=== PATIENT | male | born 1930 | race Caucasian/White ===

== ENCOUNTER 2016-04-22 14:32 | Observation (INO) | payer BC, OTHER ==
[2016-04-22 14:49] VITALS: BMI 33.0
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
[2016-04-22 15:28] LABS: BASOPHIL 0.7 % (0-2.0); EOSINOPHIL 4.8 % (0-4.5); MCH 32.2 pg (25.7-33.7); MCHC 34.2 g/dl (32.0-35.9); MEAN CELL VOLUME 94.2 fl (80-96); MEAN PLT VOLUME 7.7 fl (7.5-11.1); NEUTROPHILS 57.7 % (42.8-82.8); PLATELET COUNT 132 K/MM3 (134-434); RDW 13.1 % (11.9-15.9); WHITE BLOOD COUNT 4.6 K/mm3 (4.0-10.0)
[2016-04-22 15:57] LABS: ALBUMIN 3.9 g/dl (3.4-5.0); ANION GAP 9 (8-16); BILIRUBIN,TOTAL 0.5 mg/dL (0.2-1.0); CALCIUM 8.8 mg/dL (8.5-10.1); CO2 28 mmol/L (21-32); CREATININE 1.5 mg/dL (0.7-1.3); GLUCOSE,RANDOM 212 mg/dL (74-106); MAGNESIUM 1.9 mg/dL (1.8-2.4); SGOT/AST 11 U/L (15-37); SGPT/ALT 22 U/L (12-78); TOT PROT 6.6 g/dl (6.4-8.2)
[2016-04-22 16:00] LABS: ALK PHOS 71 U/L (45-117); TROPONIN I < 0.02 ng/ml (0.00-0.05)
[2016-04-22] MEDS ORDERED: SODIUM CHLORIDE 500 ML IV STA (16:12)
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
[2016-04-22] MEDS ORDERED: ACETAMINOPHEN 325 MG TABLET (FP) PO PRN (19:41)
[2016-04-22] MEDS ORDERED: ONDANSETRON 4 MG/2 ML VIAL IVPB PRN (19:41)
[2016-04-22] MEDS ORDERED: oxyCODONE HCL 5 MG TABLET PO PRN (19:41)
[2016-04-22] MEDS ORDERED: ALBUTEROL SO4 0.083% IH SOL 2.5 MG/3 ML VIAL.NEB. NEB PRN (19:41)
[2016-04-22 21:11] LABS: URINE APPEARANCE CLEAR; URINE BILIRUBIN NEGATIVE (NEGATIVE); URINE BLOOD NEGATIVE (NEGATIVE); URINE COLOR LTYELLOW; URINE GLUCOSE (UA) 1+ (NEGATIVE); URINE KETONE NEGATIVE (NEGATIVE); URINE LEUK ESTERASE NEGATIVE (NEGATIVE); URINE NITRITE NEGATIVE (NEGATIVE); URINE PROTEIN NEGATIVE (NEGATIVE); URINE UROBILINOGEN NEGATIVE E.U./dl (0.2-1.0)
[2016-04-22] MEDS ORDERED: diazePAM 5 MG TABLET PO PRN (22:00)
[2016-04-22] MEDS ORDERED: LATANOPROST 0.005% OPHTH SOLN 2.5ML BOTTLE OU SCH (22:00)
[2016-04-22] MEDS ORDERED: ATORVASTATIN CA 10 MG TABLET (FP) PO SCH (22:00)
[2016-04-23] MEDS: INSULIN SLIDING SCALE (NOVOLOG) 1 VIAL SQ SCH ×3 (01:12→11:37)
[2016-04-23] MEDS: DICLOFENAC SODIUM 75 MG TABLET.DR PO SCH ×2 (01:13→09:45)
[2016-04-23] MEDS: RANITIDINE HCL 150 MG TABLET (FP) PO SCH ×2 (01:15→09:45)
[2016-04-23 03:32] LABS: TROPONIN I < 0.02 ng/ml (0.00-0.05)
[2016-04-23 07:42] LABS: BASOPHIL 0.5 % (0-2.0); EOSINOPHIL 6.1 % (0-4.5); MCH 32.3 pg (25.7-33.7); MCHC 34.3 g/dl (32.0-35.9); MEAN CELL VOLUME 94.3 fl (80-96); MEAN PLT VOLUME 7.8 fl (7.5-11.1); NEUTROPHILS 54.6 % (42.8-82.8); PLATELET COUNT 130 K/MM3 (134-434); WHITE BLOOD COUNT 6.2 K/mm3 (4.0-10.0)
[2016-04-23 08:02] LABS: CALCIUM 8.8 mg/dL (8.5-10.1); CREATININE 1.3 mg/dL (0.7-1.3); MAGNESIUM 1.9 mg/dL (1.8-2.4); PHOSPHOROUS 4.1 mg/dL (2.5-4.9)
[2016-04-23 08:09] LABS: TROPONIN I < 0.02 ng/ml (0.00-0.05)
[2016-04-23] MEDS ORDERED: ASCORBIC ACID 500 MG TABLET (FP) PO SCH (10:00)
[2016-04-23] MEDS ORDERED: POLYETHYLENE GLYCOL 3350 255 GM BTL PO SCH (10:00)
[2016-04-23] MEDS ORDERED: LORATADINE 10 MG TABLET PO SCH (10:00)
[2016-04-23] MEDS ORDERED: PATIENT'S OWN MEDICATION (NON-FORMULARY) (Docosahexanoic Acid/Epa [Fish Oil Softgel] 1 EAC PO SCH (10:00)
[2016-04-23] MEDS ORDERED: QUINAPRIL HCL 40 MG TABLET (FP) PO SCH (10:00)
[2016-04-23] MEDS ORDERED: MULTIVITAMINS (DAILY MVI) TABLET (FP) PO SCH (10:00)
[2016-04-23] MEDS ORDERED: FUROSEMIDE 20 MG TABLET (FP) PO SCH (10:00)
[2016-04-23] MEDS ORDERED: CHOLECALCIFEROL (VITAMIN D3) 1,000 UNIT TABLET (FP) PO SCH (10:00)
--- NOTE | 2016-04-23 11:01 | EKG ---
Test Reason : Blood Pressure : / mmHG Vent. Rate : 091 BPM Atrial Rate : 091 BPM P-R Int : 222 ms QRS Dur : 086 ms QT Int : 356 ms P-R-T Axes : 048 019 021 degrees QTc Int : 437 ms SINUS RHYTHM WITH 1ST DEGREE A-V BLOCK OTHERWISE NORMAL ECG WHEN COMPARED WITH ECG OF 06-MAY-2006 15:12, NO SIGNIFICANT CHANGE WAS FOUND Confirmed by RASHEL SANFORD MD ([id number]) on 04/23/2016 11:01:21 AM Referred By: DANIEL Confirmed By:RASHEL SANFORD MD
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
[2016-04-23 15:16] VITALS: TEMP 98.2
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
[2016-04-23 15:39] VITALS: BP 154/82; PULSE 92
== END 2016-04-23 18:30 | disposition home or self-care (01) ==
LOC: SUPCPDRO 14:32 → JER 14:32 → JERBED 19:13
PROVIDERS: ADMIT Internal Medicine; ATTEND Internal Medicine
DX: R07.89 Other chest pain (principal); I10 Essential (primary) hypertension; E11.9 Type 2 diabetes mellitus without complications; K21.9 Gastro-esophageal reflux disease without esophagitis; M25.569 Pain in unspecified knee; I50.9 Heart failure, unspecified; Z96.653 Presence of artificial knee joint, bilateral; Z87.891 Personal history of nicotine dependence; T14.8 Other injury of unspecified body region; V49.88XA Car occupant (driver) (passenger) injured in other specified transport accidents, initial encounter; Y92.89 Other specified places as the place of occurrence of the external cause
CPT/HCPCS: 36415; 70450-TC; 71010-TC; 71260-TC; 72125-TC; 74177-TC; 80048; 80053; 81003; 82550; 83735; 84100; 84484; 85025; 93005; 93010; 99285-25; G0378

== ENCOUNTER 2017-03-25 21:18 | Inpatient (IN) | payer OTHER, BC ==
--- NOTE | 2017-03-25 21:36 | PDOC ---
History of Present Illness - General History Source: Spouse Exam Limitations: No Limitations - History of Present Illness Initial Comments: 03/25/17 21:49 The patient is an 85 year old male with a significant PMH of HTN, hyperlipidemia , and diabetes who presents to the emergency department via EMS with chest pain beginning just prior to presentation. The patient's reports the patient described the chest pain as a pressure-like sensation. The patients reports that the patient was not feeling well yesterday and visited Dr. Gambino who suggested plenty of fluids and follow up. The patients denies any sick contacts. The patient's denies chest pain, shortness of breath, headache, and dizziness. Denies fevers, chills, nausea, vomit, diarrhea, and constipation. Denies dysuria, frequency, urgency, and hematuria. Allergies: NKA Past surgical history: Umbilical hernia repair. Appendectomy. Cholecystectomy. Bilateral knee replacements. Social history: Former smoker. No reported alcohol or drug use. PCP: Dr. Gambino <Maxim Gonzalez - Last Filed: 03/25/17 22:11> - General History Source: Spouse <Ric Mejia - Last Filed: 03/26/17 19:16> - General Stated Complaint: CHEST PAIN Time Seen by Provider: 03/25/17 21:36 Past History <Maxim Gonzalez - Last Filed: 03/25/17 22:11> - Past Medical History Anemia: No Asthma: No Cancer: No Cardiac Disorders: No CVA: No COPD: No CHF: No Dementia: No Diabetes: Yes (NIDDM) GI Disorders: Yes (RECTAL BLEEDING, CONSTIPATION) Disorders: No HTN: Yes Hypercholesterolemia: Yes Liver Disease: No Seizures: No Thyroid Disease: No - Surgical History Abdominal Surgery: Yes (REPAIR OF UMBILICAL HERNIA) Appendectomy: Yes Cardiac Surgery: No Cholecystectomy: Yes Lung Surgery: No Neurologic Surgery: No Orthopedic Surgery: Yes (ABIGAIL. KNEE REPLACEMENTS) - Suicide/Smoking/Psychosocial Hx Smoking History: Former smoker Have you smoked in the past 12 months: No If you are a former smoker, when did you quit?: 40 YRS AGO Hx Alcohol Use: No Drug/Substance Use Hx: No Substance Use Type: None <Ric Mejia - Last Filed: 03/26/17 19:16> - Past Medical History Allergies/Adverse Reactions: Allergies Allergy/AdvReac Type Severity Reaction Status Date / Time No Known Allergies Allergy Verified 03/25/17 21:40 Home Medications: Ambulatory Orders Atorvastatin Ca [Lipitor] 10 mg PO HS 10/22/13 Cetirizine HCl [Zyrtec -] 10 mg PO DAILY 10/22/13 Cholecalciferol (Vitamin D3) [Vitamin D3 -] 1,000 unit PO DAILY 10/22/13 Diazepam [Valium -] 10 mg PO TID 10/22/13 Metformin HCl [Metformin HCl ER] 1,000 mg PO BID 10/22/13 Multivitamins [Multivit ([facility] Formulary)] 1 tab PO DAILY 10/22/13 Quinapril HCl [Accupril -] 40 mg PO DAILY 10/22/13 Ranitidine HCl 150 mg PO BID 10/22/13 Oxycodone HCl/Acetaminophen [Percocet 5-325 mg Tablet] 1 tab PO BID PRN #20 tablet MDD 10mg 04/23/16 Aspirin 81 mg PO DAILY 03/26/17 Diclofenac Sodium 75 mg PO BID 03/26/17 Review of Systems - Review of Systems Able to Perform ROS?: Yes Comments:: 03/25/17 21:50 CONSTITUTIONAL: Absent: fever, chills, diaphoresis, generalized weakness, malaise, loss of appetite HEENT: Absent: rhinorrhea, nasal congestion, throat pain, throat swelling, difficulty swallowing, mouth swelling, ear pain, eye pain, visual Changes CARDIOVASCULAR: (+) Chest pain. Absent: syncope, palpitations, irregular heart rate, lightheadedness, peripheral edema RESPIRATORY: Absent: cough, shortness of breath, dyspnea with exertion, orthopnea, wheezing, stridor, hemoptysis GASTROINTESTINAL: Absent: abdominal pain, abdominal distension, nausea, vomiting, diarrhea, constipation, melena, hematochezia GENITOURINARY: Absent: dysuria, frequency, urgency, hesitancy, hematuria, flank pain, genital pain MUSCULOSKELETAL: Absent: myalgia, arthralgia, joint swelling SKIN: Absent: rash, itching, pallor HEMATOLOGIC/IMMUNOLOGIC: Absent: easy bleeding, easy bruising, lymphadenopathy, frequent infections ENDOCRINE: Absent: unexplained weight gain, unexplained weight loss, heat intolerance, cold intolerance NEUROLOGIC: Absent: headache, focal weakness or paresthesias, dizziness, unsteady gait, seizure, mental status changes, bladder or bowel incontinence PSYCHIATRIC: Absent: anxiety, depression, suicidal or homicidal ideation, hallucinations. <Maxim Gonzalez - Last Filed: 03/25/17 22:11> *Physical Exam - Physical Exam Comments: 03/25/17 21:50 GENERAL: Well developed, well nourished. Awake and alert. HEENT: Normocephalic, atraumatic. PERRLA, EOMI. No conjunctival pallor. Sclera are non- icteric. Moist mucous membranes. Oropharynx is clear. NECK: Supple. Full ROM. No JVD. Carotid pulses 2+ and symmetric, without bruits. No thyromegaly. No lymphadenopathy. CARDIOVASCULAR: Regular rate and rhythm. No murmurs, rubs, or gallops. Distal pulses are 2+ and symmetric. PULMONARY: (+) Moderate respiratory distress. (+) Conversational dyspnea. (+) Decreased breath sounds bilaterally upper and lower lung melo. Lungs clear to auscultation bilaterally. No wheezing, rales or rhonchi. ABDOMINAL: Soft. Non-tender. Non-distended. No rebound or guarding. No organomegaly. Normoactive bowel sounds. MUSCULOSKELETAL Normal range of motion at all joints. No bony deformities or tenderness. No CVA tenderness. EXTREMITIES: No cyanosis. No clubbing. No edema. No calf tenderness. SKIN: Warm and dry. Normal capillary refill. No rashes. No jaundice. NEUROLOGICAL: Alert, awake, appropriate. Cranial nerves 2-12 intact. No deficits to light touch and temperature in face, upper extremities and lower extremities. No motor deficits in the in face, upper extremities and lower extremities. Normoreflexic in the upper and lower extremities. Normal speech. Toes are downgoing bilaterally. PSYCHIATRIC: Cooperative. Good eye contact. Appropriate mood and affect. <Maxim Gonzalez - Last Filed: 03/25/17 22:11> Heart Score/ECG Review #1 03/25/17 22:11 Vent rate 112 bpm Sinus tachycardia Possible left atrial enlargement Abnormal ECG <Maxim Gonzalez - Last Filed: 03/25/17 22:11> ED Treatment Course - LABORATORY CBC & Chemistry Diagram: 03/26/17 06:20 03/26/17 06:20 <Ric Mejia - Last Filed: 03/26/17 19:16> Medical Decision Making - Medical Decision Making 03/26/17 19:14 Dr. Mejia: The scribe's documentation has been prepared under my direction and personally reviewed by me in its entirery. I confirm that the note above accurately reflects all work, treatment, procedures, and medical decision making performed by me. Patient was admitted for congestive heart failure. patient improvement with diuresis of fluid. Patient's vital signs improved. admitted to telemetry <Ric Mejia - Last Filed: 03/26/17 19:16> *DC/Admit/Observation/Transfer - Attestations Scribe Attestion: 03/25/17 21:50 Documentation prepared by Maxim Gonzalez, acting as medical front desk specialist for Ric Mejia DO. <Maxim Gonzalez - Last Filed: 03/25/17 22:11> - Discharge Dispostion Admit: Yes <Ric Mejia - Last Filed: 03/26/17 19:16> Diagnosis at time of Disposition: CHF (congestive heart failure) - Discharge Dispostion Condition at time of disposition: Stable
[2017-03-25 22:20] LABS: BASO % 0.1 % (0-2.0); EOS % 0.1 % (0-4.5); HEMATOCRIT 38.4 % (35.4-49); HEMOGLOBIN 12.6 GM/dL (11.7-16.9); MCHC 32.8 g/dl (32.0-35.9); MEAN CELL VOLUME 97.6 fl (80-96); MEAN PLT VOLUME 8.5 fl (7.5-11.1); MONO % 4.7 % (3.8-10.2); NEUT % 90.1 % (42.8-82.8); PLATELET COUNT 173 K/MM3 (134-434); RBC 3.94 M/mm3 (4.00-5.60); RDW 13.3 % (11.9-15.9); WHITE BLOOD COUNT 12.5 K/mm3 (4.0-10.0)
[2017-03-25 22:21] VITALS: BMI 30.1
[2017-03-25 22:50] LABS: INR 1.48 (0.82-1.09); PROTHROMBIN TIME (PATIENT) 16.7 SEC (9.98-11.88)
[2017-03-25] MEDS ORDERED: FUROSEMIDE 40 MG/4 ML INJECTABLE VIAL IVPUSH ONE (23:03)
[2017-03-25] MEDS ORDERED: FUROSEMIDE 40 MG/4 ML INJECTABLE VIAL ONE (23:13)
[2017-03-25 23:24] LABS: ALBUMIN 4.1 g/dl (3.4-5.0); BILIRUBIN,TOTAL 0.6 mg/dL (0.2-1.0); BLOOD UREA NITROGEN 41 mg/dL (7-18); CHLORIDE 100 mmol/L (98-107); CO2 24 mmol/L (21-32); CREATININE 1.8 mg/dL (0.7-1.3); GLUCOSE,RANDOM 206 mg/dL (74-106); SGPT/ALT 27 U/L (12-78); TOT PROT 6.9 g/dl (6.4-8.2)
[2017-03-25 23:38] LABS: ANION GAP 7 (8-16); SODIUM 131 mmol/L (136-145)
[2017-03-25 23:40] LABS: ALK PHOS 83 U/L (45-117)
[2017-03-25 23:44] LABS: MAGNESIUM 1.7 mg/dL (1.8-2.4); SGOT/AST 17 U/L (15-37)
[2017-03-25 23:45] LABS: POTASSIUM 6.6 mmol/L (3.5-5.1)
--- NOTE | 2017-03-25 23:59 | HP ---
Admitting History and Physical - Primary Care Physician PCP: Wisam Brar - Admission Chief Complaint: SOB, Generalized Malaise History of Present Illness: This is a 86 y/o man with a past medical history of HTN, DM, Herniated Disc, Spinal Stenosis, Diverticulitis, HAMILTON. Who presents to the ED with SOB, generalized malaise, per spouse "not feeling well" The patient's reports that over the last several days the patient has been weak, lethargic, with a poor appetite. She reports calling his PCP and describing the symptoms, and was recommended to treat the patient for dehydration- increased fluids- Gatorade, juices etc. The noted the patient was getting weaker and called EMS to transport for evaluation. The spouse denies patient having fever, CP, palpitations, AP, N/V/D, constipation, dysuria. Per spouse patient is UTD with Influenza, Pneumoccocal vaccines History Source: Family Member, Medical Record Limitations to Obtaining History: Clinical Condition - Past Medical History Cardiovascular: Yes: CHF, HTN, Hyperlipdemia Gastrointestinal: Yes: GERD Musculoskeletal: Yes: Other (Herniated Disc, Spinal Stenosis) Endocrine: Yes: Diabetes Mellitus - Past Surgical History Past Surgical History: Yes: Joint Replacement (bilateral knee) - Smoking History Smoking history: Unknown if ever smoked Have you smoked in the past 12 months: No If you are a former smoker, when did you quit?: 40 YRS AGO - Alcohol/Substance Use Hx Alcohol Use: No History of Substance Use: reports: None - Social History Usual Living Arrangement: Yes: With Spouse ADL: Independent History of Recent Travel: No Home Medications - Allergies Allergies/Adverse Reactions: Allergies Allergy/AdvReac Type Severity Reaction Status Date / Time No Known Allergies Allergy Verified 03/25/17 21:40 - Home Medications Home Medications: Ambulatory Orders Atorvastatin Ca [Lipitor] 10 mg PO HS 10/22/13 Cetirizine HCl [Zyrtec -] 10 mg PO DAILY 10/22/13 Cholecalciferol (Vitamin D3) [Vitamin D3 -] 1,000 unit PO DAILY 10/22/13 Diazepam [Valium -] 10 mg PO TID 10/22/13 Metformin HCl [Metformin HCl ER] 1,000 mg PO BID 10/22/13 Multivitamins [Multivit ([facility] Formulary)] 1 tab PO DAILY 09/05/14 Quinapril HCl [Accupril -] 40 mg PO DAILY 10/22/13 Ranitidine HCl 150 mg PO BID 10/22/13 Oxycodone HCl/Acetaminophen [Percocet 5-325 mg Tablet] 1 tab PO BID PRN #20 tablet MDD 10mg 04/23/16 Aspirin 81 mg PO DAILY 03/26/17 Diclofenac Sodium 75 mg PO BID 03/26/17 Family Disease History - Family Disease History Family Disease History: Other: Sister (dementia) Review of Systems Unable to obtain ROS, reason: Lethargy Physical Examination Vital Signs: Vital Signs Temperature Pulse Rate 112 H 03/25/17 22:18 Respiratory Rate 14 03/25/17 22:18 Blood Pressure 170/100 03/25/17 22:18 O2 Sat by Pulse Oximetry (%) 90 L 03/25/17 22:18 Constitutional: Yes: Obese, Other (Lethargic, arousable to verbal prompting) Eyes: Yes: Other (Conjunctiva injected, yellow crusting to lashes, inner canthus ) HENT: Yes: Normocephalic Neck: Yes: WNL, Supple, Trachea Midline Cardiovascular: Yes: Regular Rate and Rhythm, Murmur, S1, S2 Respiratory: Yes: On BiPap, Rhonchi, Wheezes Gastrointestinal: Yes: Soft, Abdomen, Obese Renal/: Yes: Adams Present (dark yellow urine noted in tubing, drainage bag) Breast(s): Yes: WNL Musculoskeletal: Yes: WNL Extremities: Yes: WNL Edema: Yes Edema: LLE: 3+, RLE: 4+ Peripheral Pulses WNL: Yes Neurological: Yes: Lethargy Psychiatric: Yes: Other (alert- to name, then lethargic) Labs: CBC, BMP 03/25/17 22:14 03/25/17 22:14 Laboratory Results - last 24 hr 03/25/17 03/25/17 03/25/17 22:14 22:14 22:14 WBC 12.5 H D RBC 3.94 L Hgb 12.6 Hct 38.4 MCV 97.6 H MCH 32.0 MCHC 32.8 RDW 13.3 Plt Count 173 D MPV 8.5 Neutrophils % 90.1 H D Lymphocytes % 5.0 L D Monocytes % 4.7 Eosinophils % 0.1 D Basophils % 0.1 PT with INR 16.70 H INR 1.48 H Anticoagulation Therapy Puncture Site ABG pH ABG pCO2 at Pt Temp ABG pO2 at Pt Temp ABG HCO3 ABG O2 Sat (Measured) ABG O2 Content ABG Base Excess Fritz Test O2 Delivery Device Oxygen Flow Rate Vent Mode Vent Rate Mechanical Rate Pressure Support Vent Sodium 131 L Potassium 6.6 H* D Chloride 100 Carbon Dioxide 24 Anion Gap 7 L BUN 41 H D Creatinine 1.8 H D Creat Clearance w eGFR 35.95 Random Glucose 206 H D Hemoglobin A1c % Lactic Acid Calcium 8.0 L Phosphorus Magnesium 1.7 L Total Bilirubin 0.6 AST 17 D ALT 27 D Alkaline Phosphatase 83 Creatine Kinase 50 Troponin I 0.08 H D B-Natriuretic Peptide 58643.20 H Total Protein 6.9 Albumin 4.1 Triglycerides Cholesterol Total LDL Cholesterol HDL Cholesterol Urine Color Urine Appearance Urine pH Ur Specific Dailey Urine Protein Urine Glucose (UA) Urine Ketones Urine Blood Urine Nitrite Urine Bilirubin Urine Urobilinogen Ur Leukocyte Esterase Urine WBC (Auto) Urine RBC (Auto) Urine Bacteria Hyaline Casts Urine Mucus 03/26/17 03/26/17 03/26/17 00:10 00:10 00:40 WBC RBC Hgb Hct MCV MCH MCHC RDW Plt Count MPV Neutrophils % Lymphocytes % Monocytes % Eosinophils % Basophils % PT with INR INR Anticoagulation Therapy No Result Required. Puncture Site Left radial ABG pH 7.29 L ABG pCO2 at Pt Temp 50.2 H ABG pO2 at Pt Temp 198.0 H* ABG HCO3 23.5 ABG O2 Sat (Measured) 99.3 H ABG O2 Content 17.3 ABG Base Excess -2.9 L Fritz Test Positive O2 Delivery Device Bipap Oxygen Flow Rate 100 Vent Mode S/t Vent Rate 16 Mechanical Rate No Result Required. Pressure Support Vent 14/7 Sodium Potassium 6.2 H* Chloride Carbon Dioxide Anion Gap BUN Creatinine Creat Clearance w eGFR Random Glucose Hemoglobin A1c % Lactic Acid Calcium Phosphorus Magnesium Total Bilirubin AST ALT Alkaline Phosphatase Creatine Kinase Troponin I B-Natriuretic Peptide Total Protein Albumin Triglycerides Cholesterol Total LDL Cholesterol HDL Cholesterol Urine Color Yellow Urine Appearance Clear Urine pH 5.0 Ur Specific Dailey 1.017 Urine Protein 1+ H Urine Glucose (UA) Negative Urine Ketones Negative Urine Blood Negative Urine Nitrite Negative Urine Bilirubin Negative Urine Urobilinogen Negative Ur Leukocyte Esterase Negative Urine WBC (Auto) <1 Urine RBC (Auto) <1 Urine Bacteria Rare Hyaline Casts 2 Urine Mucus Rare 03/26/17 01:02 WBC RBC Hgb Hct MCV MCH MCHC RDW Plt Count MPV Neutrophils % Lymphocytes % Monocytes % Eosinophils % Basophils % PT with INR INR Anticoagulation Therapy Puncture Site ABG pH ABG pCO2 at Pt Temp ABG pO2 at Pt Temp ABG HCO3 ABG O2 Sat (Measured) ABG O2 Content ABG Base Excess Fritz Test O2 Delivery Device Oxygen Flow Rate Vent Mode Vent Rate Mechanical Rate Pressure Support Vent Sodium Potassium Chloride Carbon Dioxide Anion Gap BUN Creatinine Creat Clearance w eGFR Random Glucose Hemoglobin A1c % Lactic Acid 1.3 Calcium Phosphorus Magnesium Total Bilirubin AST ALT Alkaline Phosphatase Creatine Kinase Troponin I B-Natriuretic Peptide Total Protein Albumin Triglycerides Cholesterol Total LDL Cholesterol HDL Cholesterol Urine Color Urine Appearance Urine pH Ur Specific Dailey Urine Protein Urine Glucose (UA) Urine Ketones Urine Blood Urine Nitrite Urine Bilirubin Urine Urobilinogen Ur Leukocyte Esterase Urine WBC (Auto) Urine RBC (Auto) Urine Bacteria Hyaline Casts Urine Mucus Imaging - Results Chest X-ray: Image Reviewed (Pulm vascular congestion) EKG: Image Reviewed (Sinus Tachycardia 112 bpm, possible left atrial enlargement Non specific T wave abnormality QT/QTc 318/434) Problem List - Problems (1) Acute exacerbation of congestive heart failure Code(s): I50.9 - HEART FAILURE, UNSPECIFIED (2) Neuropathy Code(s): G62.9 - POLYNEUROPATHY, UNSPECIFIED (3) Osteoarthritis Code(s): M19.90 - UNSPECIFIED OSTEOARTHRITIS, UNSPECIFIED SITE (4) Diabetes Code(s): E11.9 - TYPE 2 DIABETES MELLITUS WITHOUT COMPLICATIONS (5) GERD (gastroesophageal reflux disease) Code(s): K21.9 - GASTRO-ESOPHAGEAL REFLUX DISEASE WITHOUT ESOPHAGITIS (6) HLD (hyperlipidemia) Code(s): E78.5 - HYPERLIPIDEMIA, UNSPECIFIED (7) HTN (hypertension) Code(s): I10 - ESSENTIAL (PRIMARY) HYPERTENSION (8) Knee pain, chronic Code(s): M25.569 - PAIN IN UNSPECIFIED KNEE; G89.29 - OTHER CHRONIC PAIN (9) DVT prophylaxis Code(s): [id number] - Assessment/Plan This is a 86 y/o man with a PMHx of: CHF, HTN, HLD, DM, Venous Stasis Ulcers, Spinal Stenosis, Herniated Discs, HAMILTON. Admitted to Telemetry Acute Exacerbation of COPD, CHF, Electrolyte Imbalance. Plan: 1. Acute CHF Exacerbation- Tele monitoring, BNP 30074, CXR- pulm vascular congestion, Continue Bipap, ABG-pending, Will titrate accordingly, Appreciate Cardiology consult, Echo, Lasix IV, Strict INOs, Daily weights. 2. Acute COPD Exacerbation- Continue steroids, ABX, Duonebs, Appreciate Pulm consult, O2- Bipap, Monitor vitals, CBCD, BMP 3. Electrolyte Imbalance- Tele monitoring, EKG reviewed- no Peaked Ts, Hyperkalemic protocol, Monitor BMP 4. Diabetes Mellitus- BGMs, ISS when diet resumed 5. Continue home meds when able to tolerate, consider CCBs IV for rate control 6. FEN- Fluid restrictions, Replete Mg, Monitor K, NPO 7. DVT/PPI Prophylaxis- Heparin SQ, PPI Code Status: Full Code Dispo: Requires Inpatient Care Visit type - Emergency Visit Emergency Visit: Yes ED Registration Date: 03/25/17 Care time: The patient presented to the Emergency Department on the above date and was hospitalized for further evaluation of their emergent condition. - New Patient This patient is new to me today: Yes Date on this admission: 03/25/17 - Critical Care Critical Care patient: No
[2017-03-26 00:26] LABS: URINE APPEARANCE CLEAR; URINE BILIRUBIN NEGATIVE (NEGATIVE); URINE BLOOD NEGATIVE (NEGATIVE); URINE COLOR YELLOW; URINE GLUCOSE (UA) NEGATIVE (NEGATIVE); URINE KETONE NEGATIVE (NEGATIVE); URINE LEUK ESTERASE NEGATIVE (NEGATIVE); URINE NITRITE NEGATIVE (NEGATIVE); URINE UROBILINOGEN NEGATIVE mg/dL (0.2-1.0)
[2017-03-26 00:37] LABS: URINE PROTEIN 1+ (NEGATIVE)
[2017-03-26 00:39] LABS: URINE BACTERIA RARE /hpf (NONE SEEN); URINE HYALINE CAST 2 /lpf; URINE MUCUS RARE
[2017-03-26 01:01] LABS: ARTERIAL BLD GAS O2 SATURATION 99.3 % (90-98.9); ARTERIAL BLOOD GAS BASE EXCESS -2.9 meq/l (-2-2); ARTERIAL BLOOD GAS PCO2 50.2 mmHg (35-45); ARTERIAL BLOOD GAS pH 7.29 (7.35-7.45)
[2017-03-26 01:05] LABS: ALLENS TEST POSITIVE
[2017-03-26] MEDS: FUROSEMIDE 40 MG/4 ML INJECTABLE VIAL IVPUSH SCH ×2 (06:08→14:46)
[2017-03-26 07:24] LABS: BASO % 0.1 % (0-2.0); HEMATOCRIT 37.5 % (35.4-49); HEMOGLOBIN 12.3 GM/dL (11.7-16.9); LYMPH % 6.4 % (8-40); MCH 31.3 pg (25.7-33.7); MCHC 32.7 g/dl (32.0-35.9); MEAN CELL VOLUME 95.9 fl (80-96); MEAN PLT VOLUME 8.6 fl (7.5-11.1); MONO % 5.3 % (3.8-10.2); NEUT % 88.2 % (42.8-82.8); PLATELET COUNT 151 K/MM3 (134-434); RBC 3.92 M/mm3 (4.00-5.60); RDW 13.1 % (11.9-15.9); WHITE BLOOD COUNT 13.2 K/mm3 (4.0-10.0)
[2017-03-26 08:00] LABS: ANION GAP 9 (8-16); BLOOD UREA NITROGEN 42 mg/dL (7-18); CALCIUM 8.3 mg/dL (8.5-10.1); CHLORIDE 98 mmol/L (98-107); CHOLESTEROL 110 mg/dL (50-200); CO2 27 mmol/L (21-32); CREATININE 1.8 mg/dL (0.7-1.3); GLUCOSE,RANDOM 187 mg/dL (74-106); HDL CHOLESTEROL 38 mg/dL (40-60); LDL CHOLESTEROL (ONLY SJRH) 66 mg/dL (5-100); MAGNESIUM 1.8 mg/dL (1.8-2.4); PHOSPHOROUS 4.7 mg/dL (2.5-4.9); POTASSIUM 5.2 mmol/L (3.5-5.1); SODIUM 134 mmol/L (136-145); TRIGLYCERIDES 68 mg/dL (35-160)
[2017-03-26] MEDS ORDERED: PIPERACIL/TAZOB 3.375 GM 3.375 GM/50 ML PREMIX IVPB ONE ×2 (09:27→11:15)
--- NOTE | 2017-03-26 10:42 | PN ---
Progress Note, Physician Chief Complaint: pt in bed, lethargic, appears in no acute distress. - Current Medication List Current Medications: Active Medications Acetaminophen (Ofirmev Injection -) 650 mg IVPB Q6H JADIEL Furosemide (Lasix Injection -) 40 mg IVPUSH BID@0600,1400 JADIEL Last Admin: 03/26/17 06:08 Dose: 40 mg Piperacillin/Tazobactam/Dextrose (Zosyn 3.375gm Ivpb (Premix)) 3.375 gm IVPB ONCE ONE Stop: 03/26/17 09:28 - Objective Vital Signs: Vital Signs Temperature 100.7 F H 03/26/17 07:27 Pulse Rate 107 H 03/26/17 09:00 Respiratory Rate 22 03/26/17 09:00 Blood Pressure 132/84 03/26/17 09:00 O2 Sat by Pulse Oximetry (%) 100 03/26/17 09:00 Constitutional: Yes: No Distress, Calm Cardiovascular: Yes: Regular Rate and Rhythm, Murmur Respiratory: Yes: Regular, CTA Bilaterally, Diminished, On BiPap. No: Rhonchi, Tachypnea, Wheezes Gastrointestinal: Yes: WNL, Normal Bowel Sounds, Soft, Abdomen, Obese. No: Distention, Tenderness Edema: Yes Edema: LLE: 3+, RLE: 3+ Neurological: Yes: Confusion, Lethargy Labs: CBC, BMP 03/26/17 06:20 03/26/17 06:20 INR, PTT INR 1.48 (0.82-1.09) H 03/25/17 22:14 - ....Imaging Chest X-ray: Report Reviewed Ultrasound: Pending EKG: Report Reviewed Problem List - Problems (1) Sepsis Assessment/Plan: pt febrile, leukocytosis, tachycardic with mild resp acidosis UA neg, UC/Blood cultures pending chest xray with worsening congestion/consolidation Zosyn given, ID consulted Tylenol prn hold on ivf for now considering fluid overload Code(s): A41.9 - SEPSIS, UNSPECIFIED ORGANISM (2) CKD (chronic kidney disease) Assessment/Plan: cr 1.8, slightly elevated from baseline possibly prerenal will monitor Code(s): N18.9 - CHRONIC KIDNEY DISEASE, UNSPECIFIED Qualifiers: Chronic kidney disease stage: stage 3 (moderate) Qualified Code(s): N18.3 - Chronic kidney disease, stage 3 (moderate) (3) Respiratory acidosis Assessment/Plan: improving on bipap pulm consulted will monitor Code(s): E87.2 - ACIDOSIS (4) Osteoarthritis Assessment/Plan: stable will monitor for now Code(s): M19.90 - UNSPECIFIED OSTEOARTHRITIS, UNSPECIFIED SITE Qualifiers: Osteoarthritis location: multiple joints Osteoarthritis type: primary Qualified Code(s): M15.0 - Primary generalized (osteo)arthritis (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 Assessment/Plan: abnormal chest xray with consolidation cardiology consulted echo without further deterioration pt diuresed in ed Code(s): I08.0 - RHEUMATIC DISORDERS OF BOTH MITRAL AND AORTIC VALVES (6) Chest pain Assessment/Plan: resolved trending troponins cardiology consulting ekg done Code(s): R07.9 - CHEST PAIN, UNSPECIFIED Qualifiers: Chest pain type: other chest pain Qualified Code(s): R07.89 - Other chest pain (7) Diabetes Assessment/Plan: stable hold metformin in the setting of worsening renal function BGM Insulin sliding scale Code(s): E11.9 - TYPE 2 DIABETES MELLITUS WITHOUT COMPLICATIONS Qualifiers: Diabetes mellitus type: type 2 Diabetes mellitus jail insulin use: without jail use Chronic kidney disease stage: stage 3 (moderate) (8) GERD (gastroesophageal reflux disease) Assessment/Plan: stable continue ranitidine Code(s): K21.9 - GASTRO-ESOPHAGEAL REFLUX DISEASE WITHOUT ESOPHAGITIS (9) HLD (hyperlipidemia) Assessment/Plan: stable continue atorvastatin aspirin 81mg Code(s): E78.5 - HYPERLIPIDEMIA, UNSPECIFIED (10) HTN (hypertension) Assessment/Plan: stable holding quinapril allow permissive htn in the setting of sepsis Code(s): I10 - ESSENTIAL (PRIMARY) HYPERTENSION Qualifiers: Hypertension type: essential hypertension Qualified Code(s): I10 - Essential (primary) hypertension (11) Vitamin D deficiency Assessment/Plan: stable continue vitamin d Code(s): E55.9 - VITAMIN D DEFICIENCY, UNSPECIFIED (12) Neuropathy Assessment/Plan: stable will monitor Code(s): G62.9 - POLYNEUROPATHY, UNSPECIFIED (13) Lower extremity edema Assessment/Plan: pt with chronic lower ext edema, slightly worse pt diuresed in ED lasix 40mg bid Code(s): R60.0 - LOCALIZED EDEMA
[2017-03-26] MEDS ORDERED: ACETAMINOPHEN 1000 MG/100 ML VIAL (NON FORMULARY) IVPB SCH (10:45)
[2017-03-26] MEDS ORDERED: PIPERACILLIN/TAZOB 3.375 GM 3.375 GM/50 ML BAG IVPB ONE (10:55)
[2017-03-26] MEDS ORDERED: ACETAMINOPHEN 1000 MG/100 ML VIAL (NON FORMULARY) IVPB PRN (10:56)
[2017-03-26 11:12] LABS: ALLENS TEST POSITIVE; ARTERIAL BLOOD GAS PCO2 47.7 mmHg (35-45); ARTERIAL BLOOD GAS PO2 22.3 mmHg (68-100); ARTERIAL BLOOD GAS pH 7.36 (7.35-7.45)
[2017-03-26 11:13] LABS: ARTERIAL BLD GAS O2 SATURATION 99.6 % (90-98.9)
--- NOTE | 2017-03-26 11:28 | EKG ---
Test Reason : Blood Pressure : / mmHG Vent. Rate : 112 BPM Atrial Rate : 112 BPM P-R Int : 172 ms QRS Dur : 086 ms QT Int : 318 ms P-R-T Axes : 030 022 -03 degrees QTc Int : 434 ms SINUS TACHYCARDIA POSSIBLE LEFT ATRIAL ENLARGEMENT NONSPECIFIC T WAVE ABNORMALITY ABNORMAL ECG WHEN COMPARED WITH ECG OF 22-APR-2016 14:59, [place] INTERVAL HAS DECREASED T WAVE INVERSION NOW EVIDENT IN ANTERIOR LEADS Confirmed by BRITTANY HUNG, JESSY ([id number]) on 03/26/2017 11:28:00 AM Referred By: Confirmed By:JESSY SOTO MD
--- NOTE | 2017-03-26 13:43 | CON.CARD ---
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 Now +++ orthopnea, pnd and dyspnea at rest - -> limiting his ability to ambulate. chronic LE edema, also progressively worsening. denies chest pain, palps dizziness, claudication, bleeding or transient neurologic symtptoms. . No LOC or syncope. denies f/c/s, abdominal pain, n/v/d, congestion, h/a, visual disturbances. In ER found to be hyperkalemic and in resp distress requiring bipap. hyperkalemia improving s/p 60 mg IV lasix x 1 yesterday and 40 mg lasix IV x 2 today. Pmhx/pshx: per phi, prior joint replacement. Fam hx; brother with heart surgery ?valve vs valve +CABG social hx: former tob ros: per hpi Ambulatory Orders Ascorbate Calcium [Vitamin C] 500 mg PO DAILY 10/22/13 Atorvastatin Ca [Lipitor] 10 mg PO HS 10/22/13 Cetirizine HCl [Zyrtec -] 10 mg PO DAILY 10/22/13 Cholecalciferol (Vitamin D3) [Vitamin D3 -] 1,000 unit PO DAILY 10/22/13 Diazepam [Valium -] 10 mg PO TID 10/22/13 Metformin HCl [Metformin HCl ER] 1,000 mg PO BID 10/22/13 Multivitamins [Multivit ([facility] Formulary)] 1 tab PO DAILY 10/22/13 Quinapril HCl [Accupril -] 40 mg PO DAILY 10/22/13 Ranitidine HCl 150 mg PO BID 10/22/13 Oxycodone HCl/Acetaminophen [Percocet 5-325 mg Tablet] 1 tab PO BID PRN #20 tablet MDD 10mg 04/23/16 Aspirin 81 mg PO DAILY 03/26/17 Current Medications Acetaminophen (Ofirmev Injection -) 650 mg IVPB Q6H PRN PRN Reason: FEVER Last Admin: 03/26/17 11:50 Dose: 650 mg Furosemide (Lasix Injection -) 40 mg IVPUSH BID@0600,1400 JADIEL Last Admin: 03/26/17 06:08 Dose: 40 mg Oseltamivir Phosphate (Tamiflu -) 30 mg PO BID JADIEL Stop: 03/30/17 22:01 Vital Signs - 24 hr 03/25/17 03/25/17 03/26/17 22:00 22:18 00:18 Temperature Pulse Rate 112 H Pulse Rate [ Radial] Respiratory 14 Rate Blood Pressure 170/100 Blood Pressure [Left Arm] O2 Sat by Pulse 100 90 L 100 Oximetry (%) 03/26/17 03/26/17 03/26/17 00:32 01:17 01:18 Temperature 100.9 F H 100.9 F H Pulse Rate 111 H Pulse Rate [ 111 H Radial] Respiratory 24 24 Rate Blood Pressure 143/97 Blood Pressure 143/97 [Left Arm] O2 Sat by Pulse 99 100 100 Oximetry (%) 03/26/17 03/26/17 03/26/17 02:34 04:11 06:09 Temperature Pulse Rate Pulse Rate [ 108 H 111 H Radial] Respiratory 24 24 Rate Blood Pressure Blood Pressure 126/86 146/89 137/102 [Left Arm] O2 Sat by Pulse 100 100 100 Oximetry (%) 03/26/17 03/26/17 03/26/17 07:00 07:03 07:27 Temperature 100.7 F H Pulse Rate Pulse Rate [ 105 H Radial] Respiratory 16 Rate Blood Pressure Blood Pressure 122/65 [Left Arm] O2 Sat by Pulse 100 100 Oximetry (%) 03/26/17 03/26/17 09:00 12:20 Temperature Pulse Rate 103 H Pulse Rate [ 107 H Radial] Respiratory 22 20 Rate Blood Pressure 132/82 Blood Pressure 132/84 [Left Arm] O2 Sat by Pulse 100 Oximetry (%) Intake & Output 03/24/17 03/25/17 03/26/17 03/27/17 07:59 07:59 07:59 07:59 Output Total 1200 Balance -1200 Weight 210 lb 209 lb 15.845 oz Dyspneic, conversation limited due to dyspnea, only able to say a few words at a time, calm JVD elevated, neck supple bibasilar dullness/rales, nl effort tachycardic, regular nl s1, s2 2/6 murmur at sternal border and at apex. + bs soft nt nd, obese. no hsm ext with 1-2+ edema dp/pt difficult to palpate 2/2 edema. aaox3 no carotid bruits no jaundice, diaphoresis CBC, BMP 03/26/17 06:20 03/26/17 06:20 Laboratory Tests 03/25/17 03/26/17 03/26/17 22:14 00:40 06:20 ABG pH 7.29 L ABG pCO2 at Pt Temp 50.2 H ABG pO2 at Pt Temp 198.0 H* ABG HCO3 23.5 Sodium 131 L Potassium 6.6 H* D 5.2 H Creatinine 1.8 H D Hemoglobin A1c % Magnesium 1.8 Creatine Kinase 50 Troponin I 0.08 H D B-Natriuretic Peptide 12901.20 H Total LDL Cholesterol 66 03/26/17 03/26/17 03/26/17 06:20 06:20 11:05 ABG pH 7.36 ABG pCO2 at Pt Temp 47.7 H ABG pO2 at Pt Temp 22.3 L* D ABG HCO3 26.4 H Sodium Potassium Creatinine Hemoglobin A1c % 6.3 H Magnesium Creatine Kinase Troponin I 0.05 D B-Natriuretic Peptide Total LDL Cholesterol 03/26/17 13:01 ABG pH ABG pCO2 at Pt Temp ABG pO2 at Pt Temp ABG HCO3 Sodium Potassium Creatinine Hemoglobin A1c % Magnesium Creatine Kinase Troponin I 0.04 B-Natriuretic Peptide Total LDL Cholesterol EKG: sinus tach 112 bpm. non-specific t wave ab 03/2017: n l lv size/fn. tds for rwma. rv not well seen. mod mac. mod-sev mr. chest ct: interstitial edema. bilateral, mod-large pleural effusions with compressive atelectasis. calc cors. calc av and mv. mildly dilated PA. 2014 stress: non-ischemic ekg, no sx's. small, mild basal inferolateral ischemia. nl ef. 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 recommend ongoing bipap support. Responding to current lasix regimen (40 IV bid), con't. - daily weights, bmp, i/o's. acute diastolic chf exacerbation - may be triggered by progressive valvular disease either functional MS from MAC or MR progression (no mention of flail leaflet on echo). - ongoing diuresis - aggressive HR control to optimize hemodynamics. will initiate diltiazem 30 mg q6h. tele monitoring. mgm't of K as mentioned below. Mg repletion prn - trop neg x 3. echo with preserved systolic function. no concern for acs at this time. presumed cad/hx of CEA/hl - calc cors with hx of mild inferior ischemia on stress testing. No signs of acs at this time. con't medical mgm't with asa, statin htn - monitor with ongoing med adjustments hyperkalemia/ckd - hyperkalemia improving with diuresis. con't to monitor with ongoing diuresis. would hold home aceI
[2017-03-26] MEDS: OSELTAMIVIR PHOSPHATE 30 MG CAPSULE PO SCH (14:46)
[2017-03-26] MEDS: HEPARIN NA (PORCINE) 5,000 UNITS/ML 1ML VIAL SQ SCH ×2 (14:46→22:52)
--- NOTE | 2017-03-26 15:41 | CON.ID ---
Consult Consult Specialty:: infectious disease Referred by:: dr beasley Reason for Consultation:: pneumonia, hypoxia - History of Present Illness Chief Complaint: sob, chest pain History of Present Illness: 86 year old man with one to 2 day history of not feeling well, poor appetitie, developed chest pain and came to ED in ED he was febrile and hypoxic requiring bipap cxray with bibiasilar infiltrates/effusions he reports a cough for several days - History Source History Provided By: Patient, Medical Record Limitations to Obtaining History: Clinical Condition - Past Medical History Cardio/Vascular: Yes: CHF, HTN, Hyperlipdemia Gastrointestinal: Yes: GERD Renal/: Yes: Renal Inusuff Heme/Onc: Yes: Anemia Musculoskeletal: Yes: Other (Herniated Disc, Spinal Stenosis) Endocrine: Yes: Diabetes Mellitus - Past Surgical History Past Surgical History: Yes: Carotid Endarterectomy (right), Joint Replacement ( bilateral knee) - Alcohol/Substance Use Hx Alcohol Use: No History of Substance Use: reports: None - Smoking History Smoking history: Unknown if ever smoked Have you smoked in the past 12 months: No If you are a former smoker, when did you quit?: 40 YRS AGO - Social History Usual Living Arrangement: With Spouse ADL: Independent History of Recent Travel: No Home Medications - Allergies Allergies/Adverse Reactions: Allergies Allergy/AdvReac Type Severity Reaction Status Date / Time No Known Allergies Allergy Verified 03/25/17 21:40 - Home Medications Home Medications: Ambulatory Orders RX: Atorvastatin Ca [Lipitor] 10 mg PO HS 10/22/13 RX: Cetirizine HCl [Zyrtec -] 10 mg PO DAILY 10/22/13 RX: Cholecalciferol (Vitamin D3) [Vitamin D3 -] 1,000 unit PO DAILY 10/22/13 RX: Diazepam [Valium -] 10 mg PO TID 10/22/13 RX: Metformin HCl [Metformin HCl ER] 1,000 mg PO BID 10/22/13 RX: Multivitamins [Multivit ([facility] Formulary)] 1 tab PO DAILY 10/22/13 RX: Quinapril HCl [Accupril -] 40 mg PO DAILY 10/22/13 RX: Ranitidine HCl 150 mg PO BID 10/22/13 RX: Oxycodone HCl/Acetaminophen [Percocet 5-325 mg Tablet] 1 tab PO BID PRN #20 tablet MDD 10mg 04/23/16 RX: Aspirin 81 mg PO DAILY 03/26/17 RX: Diclofenac Sodium 75 mg PO BID 03/26/17 Family Disease History - Family Disease History Family Disease History: Other: Sister (dementia) Review of Systems - Review of Systems Constitutional: denies: Chills, Fever Cardiovascular: reports: Chest Pain Respiratory: reports: Cough, SOB Musculoskeletal: reports: Other (edema) Physical Exam Vital Signs: Vital Signs Temperature 99.9 F H 03/26/17 13:45 Pulse Rate 105 H 03/26/17 13:45 Respiratory Rate 22 03/26/17 13:45 Blood Pressure 121/68 03/26/17 13:45 O2 Sat by Pulse Oximetry (%) 100 03/26/17 13:45 Constitutional: Yes: Well Nourished, No Distress Eyes: Yes: Conjunctiva Clear HENT: Yes: Atraumatic, Normocephalic. No: Thrush Neck: Yes: Supple, Trachea Midline Cardiovascular: Yes: Regular Rate and Rhythm Respiratory: Yes: Diminished (crackles at bases) Gastrointestinal: Yes: Normal Bowel Sounds, Soft ...Rectal Exam: Yes: Deferred Edema: Yes Edema: LLE: 2+, RLE: 2+ Psychiatric: Yes: Alert, Oriented Labs: CBC, BMP 03/26/17 06:20 03/26/17 06:20 cultures pending Imaging - Results Chest X-ray: Report Reviewed, Image Reviewed (cardiomegaly, bibasilar infiltrates and effusions) Problem List - Problems (1) Acute respiratory failure with hypoxemia Code(s): J96.01 - ACUTE RESPIRATORY FAILURE WITH HYPOXIA (2) Pneumonia Code(s): J18.9 - PNEUMONIA, UNSPECIFIED ORGANISM (3) Acute exacerbation of CHF (congestive heart failure) Code(s): I50.9 - HEART FAILURE, UNSPECIFIED Assessment/Plan suspect combination of chf and pneumonia would treat for cap and influenza repat cxray in am after diuresis send cultures, and legionella urinary antigen continue empiric tamiflu
[2017-03-26] MEDS ORDERED: cefTRIAXone 1 GM/50 ML BAG (PRE-DOCKED) IVPB SCH (15:45)
[2017-03-26] MEDS ORDERED: AZITHROMYCIN IVPB 500 MG in DEXTROSE 5%-WATER - 250 ML IVPB ONE (16:15)
[2017-03-26] MEDS ORDERED: CEFTRIAXONE 1 GM/50 ML BAG ONE (16:55)
[2017-03-26] MEDS ORDERED: AZITHROMYCIN IVPB 250 ML IVPB ONE (16:55)
[2017-03-26 16:57] LABS: ARTERIAL BLD GAS O2 SATURATION 89.4 % (90-98.9); ARTERIAL BLOOD GAS BASE EXCESS 1.6 meq/l (-2-2); ARTERIAL BLOOD GAS PO2 59.9 mmHg (68-100); ARTERIAL BLOOD GAS pH 7.37 (7.35-7.45)
[2017-03-26 17:03] LABS: ALLENS TEST POSITIVE
[2017-03-26] MEDS: CEFTRIAXONE 1 G/50 ML PREMIX 50 ML IVPB SCH (17:05)
[2017-03-26] MEDS ORDERED: ACETAMINOPHEN 325 MG TABLET (FP) PO PRN (17:19)
[2017-03-26] MEDS ORDERED: INSULIN (NOVOLOG) ASPART 100 UNITS/ML 10ML VIAL ONE (17:30)
[2017-03-26] MEDS: INSULIN SLIDING SCALE (NOVOLOG) 1 VIAL SQ SCH (17:31)
--- NOTE | 2017-03-26 18:14 | PN ---
Progress Note (short form) - Note Progress Note: PULMONARY CONSULTATION DICTATED 03/26/17 IMP ACUTE HYPOXEMIC/HYPERCAPNEIC RESPIRATORY FAILURE CHF PNEUMONIA HTN DM ACUTE ON CKD PLAN IV LASIX ABX PER ID INHALED BRONCHODILATORS F/U ABGS F/U CHEST X-RAYS CHEST CT CULTURES MONITOR LYTES,RENAL FUNCTION DR PIERSON Problem List - Problems (1) Acute hypoxemic respiratory failure Code(s): J96.01 - ACUTE RESPIRATORY FAILURE WITH HYPOXIA (2) Acute respiratory failure with hypoxia and hypercapnia Code(s): J96.01 - ACUTE RESPIRATORY FAILURE WITH HYPOXIA; J96.02 - ACUTE RESPIRATORY FAILURE WITH HYPERCAPNIA (3) Acute exacerbation of congestive heart failure Code(s): I50.9 - HEART FAILURE, UNSPECIFIED (4) Acute on chronic kidney failure Code(s): N17.9 - ACUTE KIDNEY FAILURE, UNSPECIFIED; N18.9 - CHRONIC KIDNEY DISEASE, UNSPECIFIED (5) DVT prophylaxis Code(s): RJD1000 - (6) Lower extremity edema Code(s): R60.0 - LOCALIZED EDEMA (7) 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 Code(s): I08.0 - RHEUMATIC DISORDERS OF BOTH MITRAL AND AORTIC VALVES (8) Pneumonia Code(s): J18.9 - PNEUMONIA, UNSPECIFIED ORGANISM (9) Chest pain Code(s): R07.9 - CHEST PAIN, UNSPECIFIED Qualifiers: Chest pain type: other chest pain Qualified Code(s): R07.89 - Other chest pain (10) Diabetes Code(s): E11.9 - TYPE 2 DIABETES MELLITUS WITHOUT COMPLICATIONS Qualifiers: Diabetes mellitus type: type 2 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
[2017-03-26] MEDS ORDERED: HEPARIN NA (PORCINE) 5,000 UNITS/ML 1ML VIAL ONE (21:54)
[2017-03-26] MEDS ORDERED: RANITIDINE HCL 150 MG TABLET (FP) ONE (21:54)
[2017-03-26] MEDS ORDERED: dilTIAZem HCL 30 MG TABLET (FP) ONE (21:54)
[2017-03-26] MEDS ORDERED: dilTIAZem HCL 30 MG TABLET (FP) PO SCH (22:00)
--- NOTE | 2017-03-26 22:39 | CONS ---
DATE OF CONSULTATION: 03/26/2017 PULMONARY CONSULTATION REFERRING PHYSICIAN: Wisam Brar M.D. HISTORY OF PRESENT ILLNESS: History is obtained from the chart. The patient is an 86-year-old white male with a past medical history of hypertension, hyperlipidemia, diabetes, history of smoking years ago, admitted to [facility] with chest pain, associated with shortness of breath. According to the , on admission the patient described the pain as chest pain associated with a pressure-like sensation, denied any nausea or vomiting. Apparently according to the on admission the patient was not feeling well a day or two prior to admission, at which time he was dehydrated and advised fluids. Patient was also noted to have decreased p.o. intake, increase in lethargy. EMS was called, and the patient was brought to the emergency room. In the ER, he was found to be hypoxemic in moderate to severe respiratory distress, at which time he was started on BiPAP, administered Lasix. He was also noted to have chest x-ray, positive for bibasilar consolidation, which was evaluated by Dr. Gonzalez, for placement on broad-spectrum antibiotics. There was no fevers or night sweats. There was no hemoptysis. 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 There is no history of DVT or PE in the past. Patient on admission earlier today also underwent an echocardiogram which revealed normal LV function, no evidence of pulmonary hypertension. There was moderate to severe mitral valve thickening. PAST MEDICAL HISTORY: Again includes hypertension, hyperlipidemia, CHF, GERD, chronic kidney disease, anemia, herniated disk, spinal stenosis, and diabetes. PAST SURGICAL HISTORY: Included carotid endarterectomy, bilateral knee replacements. MEDICATION: Prior to admission included Lipitor, Zyrtec, vitamin D3, diazepam, metformin, multivitamins, quinapril, ranitidine, oxycodone, aspirin, and . Current medications include Tylenol, heparin, ceftriaxone, Xanax, Lipitor, Novolog, Lasix, , Tamiflu, aspirin, loratadine, Claritin, vitamin D3. REVIEW OF SYSTEMS: Positive orthopnea. Positive dyspnea. Positive cough. Positive chest pain. No fever. No chills. No hemoptysis. No abdominal pain. Positive lower extremity edema. PHYSICAL EXAMINATION: General: The patient is a well-developed, well-nourished male awake, mildly dyspneic and mildly tachypneic. Vital signs: Temperature is 99.9, heart rate is 124, blood pressure is 150/72, respiratory rate is 17, O2 saturation is 99% on nasal cannula. HEENT: Normocephalic, atraumatic. Neck: Supple. Heart: Tachycardic. S1, S2. Chest: Bilateral crackles, with a few scattered bilateral wheezes, rhonchi. Abdomen: Soft. Bowel sounds positive. Extremities: Bilateral lower extremity edema. LABORATORY: Potassium 5.2, BUN 42, creatinine 1.8, BNP is 11,570. Lactate is 1.3. WBC 13.2, hemoglobin 12.3, hematocrit 37.5 with platelet count of 151,000. Blood gas initial: pH 7.29, pCO2 is 50, pO2 of 198, bicarbonate of 23, and saturation of 99.3 on 100% oxygen, IPAP of 14, EPAP of 7, rate of 16. Most recent on I am not sure how much O2, 7.37, pCO2 of 48, pO2 of 59, bicarbonate 27, saturation of 89. Chest x-ray reveals pulmonary vascular congestion, cardiomegaly, bibasilar opacities. IMPRESSION: 1. Acute hypoxemic hypercapnic respiratory failure secondary to multiple factors. 2. Likely congestive heart failure. 3. Pneumonia, rule out pneumonia. 4. Hypertension. 5. Diabetes. 6. Spinal stenosis. 7. Vdevd-ft-oaspzlt kidney disease, renal failure. PLAN: Supplemental O2, alternate BiPAP, Lasix, antibiotic therapy as per infectious disease, maintain O2 saturation 90% or greater, daily weights, obtain cultures, follow up ABGs. Monitor electrolytes. CBC. Follow up ABGs. Follow up chest x-rays. YELENA PIERSON M.D. [id number]
[2017-03-26] MEDS: RANITIDINE HCL 150 MG TABLET (FP) PO SCH (22:52)
[2017-03-26] MEDS ORDERED: dilTIAZem HCL 50 MG/10 ML - 10 ML VIAL IVPUSH ONE (23:00)
--- NOTE | 2017-03-26 23:29 | HOSP ---
Subjective - Review of Symptoms Events since last encounter: Hospitalist Encounter Notified by primary RN that the patient's HR is currently 125 and irregular. Subjective: A This is a 86 y/o man with a PMHx of: CHF, HTN, HLD, DM, Venous Stasis Ulcers, Spinal Stenosis, Herniated Discs, AFOGNAK. Admitted to Telemetry Acute Exacerbation of COPD, CHF, Electrolyte Imbalance. [place] Afib with RVR [id number] 5 P EKG stat Cardizem IV, po per Cardiology recommendation Physical Examination Vital Signs: Vital Signs Temperature 99.9 F H 03/26/17 18:00 Pulse Rate 110 H 03/26/17 22:00 Respiratory Rate 22 03/26/17 18:00 Blood Pressure 122/77 03/26/17 18:00 O2 Sat by Pulse Oximetry (%) 99 03/26/17 18:00 Constitutional: Yes: Well Nourished, Mild Distress, Obese Eyes: Yes: PERRL HENT: Yes: WNL, Atraumatic, Normocephalic Neck: Yes: WNL, Supple, Trachea Midline Cardiovascular: Yes: Pulse Irregular, S1, S2 Respiratory: Yes: Diminished, On BiPap Gastrointestinal: Yes: Normal Bowel Sounds, Soft, Abdomen, Obese Renal/: Yes: Adams Present Edema: Yes Peripheral Pulses WNL: Yes Neurological: Yes: Alert, Cran Nerves II-XII Intact ...Motor Strength: WNL Psychiatric: Yes: WNL, Alert Labs: CBC, BMP 03/26/17 06:20 03/26/17 06:20 Critical Care Total Critical Care Time (in minutes): 40 Critical Care Statement: The care of this patient involved high complexity decision making to prevent further life threatening deterioration of the patient 's condition and/or to evaluate & treat vital organ system(s) failure or risk of failure.
[2017-03-27] MEDS: OSELTAMIVIR PHOSPHATE 30 MG CAPSULE PO SCH ×3 (00:02→21:19)
[2017-03-27] MEDS: ATORVASTATIN CA 10 MG TABLET (FP) PO SCH ×2 (00:02→21:19)
[2017-03-27] MEDS ORDERED: dilTIAZem HCL 125 MG/25 ML - 5 ML VIAL IVPUSH ONE (00:15)
[2017-03-27] MEDS ORDERED: dilTIAZem HCL 30 MG TABLET (FP) PO ONE (00:15)
[2017-03-27] MEDS: HEPARIN NA (PORCINE) 5,000 UNITS/ML 1ML VIAL SQ SCH (05:34)
[2017-03-27] MEDS: FUROSEMIDE 40 MG/4 ML INJECTABLE VIAL IVPUSH SCH ×2 (05:34→14:59)
[2017-03-27] MEDS ORDERED: dilTIAZem HCL 60 MG TABLET (FP) PO SCH (06:00)
[2017-03-27 06:09] LABS: HEMOGLOBIN 11.4 GM/dL (11.7-16.9); MCH 32.5 pg (25.7-33.7); MCHC 33.7 g/dl (32.0-35.9); MEAN CELL VOLUME 96.6 fl (80-96); MEAN PLT VOLUME 8.9 fl (7.5-11.1); PLATELET COUNT 149 K/MM3 (134-434); RBC 3.52 M/mm3 (4.00-5.60); RDW 13.5 % (11.9-15.9); WHITE BLOOD COUNT 9.1 K/mm3 (4.0-10.0)
[2017-03-27] MEDS: INSULIN SLIDING SCALE (NOVOLOG) 1 VIAL SQ SCH ×3 (06:24→16:46)
[2017-03-27] MEDS ORDERED: INSULIN (NOVOLOG) ASPART 100 UNITS/ML 10ML VIAL ONE (06:31)
[2017-03-27 07:16] LABS: ANION GAP 8 (8-16); BLOOD UREA NITROGEN 46 mg/dL (7-18); CALCIUM 7.9 mg/dL (8.5-10.1); CHLORIDE 100 mmol/L (98-107); CO2 27 mmol/L (21-32); CREATININE 1.8 mg/dL (0.7-1.3); GLUCOSE,RANDOM 179 mg/dL (74-106); MAGNESIUM 1.6 mg/dL (1.8-2.4); POTASSIUM 4.8 mmol/L (3.5-5.1); SODIUM 135 mmol/L (136-145)
[2017-03-27 07:27] LABS: PHOSPHOROUS 5.2 mg/dL (2.5-4.9)
[2017-03-27] MEDS: CEFTRIAXONE 1 G/50 ML PREMIX 50 ML IVPB SCH (09:15)
[2017-03-27] MEDS: LORATADINE 10 MG TABLET PO SCH (09:16)
[2017-03-27] MEDS: MULTIVITAMINS (DAILY MVI) TABLET (FP) PO SCH (09:16)
[2017-03-27] MEDS: ASPIRIN 81 MG CHEWABLE TABLETS PO SCH (09:16)
[2017-03-27] MEDS: RANITIDINE HCL 150 MG TABLET (FP) PO SCH ×2 (09:16→21:19)
[2017-03-27] MEDS: CHOLECALCIFEROL (VITAMIN D3) 1,000 UNIT TABLET (FP) PO SCH (09:16)
--- NOTE | 2017-03-27 09:53 | EKG ---
Test Reason : Blood Pressure : / mmHG Vent. Rate : 125 BPM Atrial Rate : 394 BPM P-R Int : 000 ms QRS Dur : 092 ms QT Int : 348 ms P-R-T Axes : 000 031 008 degrees QTc Int : 502 ms ATRIAL FIBRILLATION WITH RAPID VENTRICULAR RESPONSE ABNORMAL ECG WHEN COMPARED WITH ECG OF 25-MAR-2017 22:04, ATRIAL FIBRILLATION HAS REPLACED SINUS RHYTHM Confirmed by VIVIAN DOZIER MD ([id number]) on 03/27/2017 9:53:03 AM Referred By: Confirmed By:VIVIAN DOZIER MD
--- NOTE | 2017-03-27 11:10 | PN ---
Progress Note (short form) - Note Progress Note: s: on bipap. less sob. no cp palps dizzy o: Vital Signs Period Temp Pulse Resp BP Sys/Rodrigues Pulse Ox Last 24 Hr 97.5 F-99.9 F 61-130 17-26 105-150/63-82 98-100 JVD elevated, neck supple bibasilar dullness/rales, nl effort tachycardic, irregular nl s1, s2 2/6 murmur at sternal border and at apex. + bs soft nt nd, obese. no hsm ext with 1-2+ edema aaox3 no jaundice, diaphoresis Current Medications Generic Name Dose Route Start Last Admin Trade Name Freq PRN Reason Stop Dose Admin Acetaminophen 650 mg 03/26/17 17:19 Tylenol - PO Q6H PRN FEVER Apixaban 2.5 mg 03/27/17 11:15 Eliquis - PO BID JADIEL Aspirin 81 mg 03/27/17 10:00 03/27/17 09:16 Asa - PO 81 mg DAILY JADIEL Administration Atorvastatin Calcium 10 mg 03/26/17 22:00 03/27/17 00:02 Lipitor - PO 10 mg HS JADIEL Administration Cholecalciferol 1,000 unit 03/27/17 10:00 03/27/17 09:16 Vitamin D3 - PO 1,000 unit DAILY JADIEL Administration Furosemide 40 mg 03/26/17 06:00 03/27/17 05:34 Lasix Injection - IVPUSH 40 mg BID@0600,1400 JADIEL Administration CEFTRIAXONE 1 G/50 ML PREMIX 50 mls @ 100 mls/hr 03/26/17 16:15 03/27/17 09: 15 Ceftriaxone 1 Gm-D5w Bag IVPB 100 mls/hr DAILY JADIEL Administration Insulin Aspart 1 vial 03/26/17 16:30 03/27/17 06:24 Novolog Vial Sliding Scale - SQ 4 units TIDAC JADIEL Administration Protocol Loratadine 10 mg 03/27/17 10:00 03/27/17 09:16 Claritin - PO 10 mg DAILY JADIEL Administration Metoprolol Succinate 50 mg 03/27/17 11:15 Toprol Xl - PO BID JADIEL Multivitamins/Minerals/Vitamin C 1 tab 03/27/17 10:00 03/27/17 09:16 Tab-A-Vit - PO 1 tab DAILY JADIEL Administration Oseltamivir Phosphate 30 mg 03/26/17 13:30 03/27/17 09:16 Tamiflu - PO 03/30/17 22:01 30 mg BID JADIEL Administration Ranitidine HCl 150 mg 03/26/17 22:00 03/27/17 09:16 Zantac - PO 150 mg BID JADIEL Administration CBC, BMP 03/27/17 05:35 03/27/17 05:35 EKG: sinus tach 112 bpm. non-specific t wave ab 03/2017: n l lv size/fn. tds for rwma. rv not well seen. mod mac. mod-sev mr. chest ct: interstitial edema. bilateral, mod-large pleural effusions with compressive atelectasis. calc cors. calc av and mv. mildly dilated PA. 2014 stress: non-ischemic ekg, no sx's. small, mild basal inferolateral ischemia. nl ef. Carotid Doppler 08/2014: no sig stenosis tele: afib, rvr at times a/p: 86 yo m with h/o HTN, HPL, mod mr, s/p right CEA, ckd, gerd, DM who p/w weakness/respiratory distress respiratory distress - likely related to acute chf exaceration with pleural effusions. recommend ongoing bipap support. Responding to current lasix regimen (40 IV bid), con't. - daily weights, bmp, i/o's. acute diastolic chf exacerbation - may be triggered by progressive valvular disease either functional MS from MAC or MR progression (no mention of flail leaflet on echo). - ongoing diuresis - trop neg x 3. echo with preserved systolic function. no concern for acs at this time. new afib: -found this admit, with rvr -will change dilt to toprol 50 bid, cont tele -chadsvas warrants AC, will start eliquis 2.5 bid (low dose due to age and cr) presumed cad/hx of CEA/hl - calc cors with hx of mild inferior ischemia on stress testing. No signs of acs at this time. con't medical mgm't with asa, statin htn - monitor with ongoing med adjustments hyperkalemia/ckd - hyperkalemia improving with diuresis. con't to monitor with ongoing diuresis. would hold home aceI
[2017-03-27] MEDS: APIXABAN 2.5 MG TABLET PO SCH ×2 (11:29→21:19)
--- NOTE | 2017-03-27 11:53 | PN ---
Progress Note, Physician Chief Complaint: pt in bed alert, in no acute distress. Denies any chest pain, sob, n/v/d or fever/chills. - Current Medication List Current Medications: Active Medications Acetaminophen (Tylenol -) 650 mg PO Q6H PRN PRN Reason: FEVER Apixaban (Eliquis -) 2.5 mg PO BID [facility] Last Admin: 03/27/17 11:29 Dose: 2.5 mg Aspirin (Asa -) 81 mg PO DAILY [facility] Last Admin: 03/27/17 09:16 Dose: 81 mg Atorvastatin Calcium (Lipitor -) 10 mg PO HS [facility] Last Admin: 03/27/17 00:02 Dose: 10 mg Cholecalciferol (Vitamin D3 -) 1,000 unit PO DAILY [facility] Last Admin: 03/27/17 09:16 Dose: 1,000 unit Furosemide (Lasix Injection -) 40 mg IVPUSH BID@0600,1400 [facility] Last Admin: 03/27/17 05:34 Dose: 40 mg CEFTRIAXONE 1 G/50 ML PREMIX (Ceftriaxone 1 Gm-D5w Bag) 50 mls @ 100 mls/hr IVPB DAILY [facility] Last Admin: 03/27/17 09:15 Dose: 100 mls/hr Insulin Aspart (Novolog Vial Sliding Scale -) 1 vial SQ TIDAC [facility] PRN Reason: Protocol Last Admin: 03/27/17 11:32 Dose: 6 units Loratadine (Claritin -) 10 mg PO DAILY [facility] Last Admin: 03/27/17 09:16 Dose: 10 mg Metoprolol Succinate (Toprol Xl -) 50 mg PO BID [facility] Last Admin: 03/27/17 11:29 Dose: 50 mg Multivitamins/Minerals/Vitamin C (Tab-A-Vit -) 1 tab PO DAILY [facility] Last Admin: 03/27/17 09:16 Dose: 1 tab Oseltamivir Phosphate (Tamiflu -) 30 mg PO BID [facility] Stop: 03/30/17 22:01 Last Admin: 03/27/17 09:16 Dose: 30 mg Ranitidine HCl (Zantac -) 150 mg PO BID [facility] Last Admin: 03/27/17 09:16 Dose: 150 mg - Objective Vital Signs: Vital Signs Temperature 98.4 F 03/27/17 09:35 Pulse Rate 89 03/27/17 09:35 Respiratory Rate 18 03/27/17 09:35 Blood Pressure 119/63 03/27/17 09:35 O2 Sat by Pulse Oximetry (%) 97 03/27/17 10:00 Constitutional: Yes: Well Nourished, No Distress Cardiovascular: Yes: Murmur Respiratory: Yes: Regular, CTA Bilaterally, Diminished, On Nasal O2. No: Rhonchi, SOB, Tachypnea, Wheezes Gastrointestinal: Yes: WNL, Normal Bowel Sounds, Soft, Abdomen, Obese. No: Distention, Tenderness Edema: Yes Edema: LLE: 2+, RLE: 2+ Neurological: Yes: WNL, Alert, Oriented Psychiatric: Yes: WNL, Alert, Oriented Labs: CBC, BMP 03/27/17 05:35 03/27/17 05:35 INR, PTT INR 1.48 (0.82-1.09) H 03/25/17 22:14 - ....Imaging Chest X-ray: Report Reviewed Problem List - Problems (1) Sepsis Code(s): A41.9 - SEPSIS, UNSPECIFIED ORGANISM (2) CKD (chronic kidney disease) Code(s): N18.9 - CHRONIC KIDNEY DISEASE, UNSPECIFIED Qualifiers: Chronic kidney disease stage: stage 3 (moderate) Qualified Code(s): N18.3 - Chronic kidney disease, stage 3 (moderate) (3) Respiratory acidosis Code(s): E87.2 - ACIDOSIS (4) Osteoarthritis Code(s): M19.90 - UNSPECIFIED OSTEOARTHRITIS, UNSPECIFIED SITE Qualifiers: Osteoarthritis location: multiple joints Osteoarthritis type: primary Qualified Code(s): M15.0 - Primary generalized (osteo)arthritis (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 Code(s): I08.0 - RHEUMATIC DISORDERS OF BOTH MITRAL AND AORTIC VALVES (6) Chest pain Code(s): R07.9 - CHEST PAIN, UNSPECIFIED Qualifiers: Chest pain type: other chest pain Qualified Code(s): R07.89 - Other chest pain (7) Diabetes Code(s): E11.9 - TYPE 2 DIABETES MELLITUS WITHOUT COMPLICATIONS Qualifiers: Diabetes mellitus type: type 2 Diabetes mellitus usp insulin use: without oil heaterman use Chronic kidney disease stage: stage 3 (moderate) (8) GERD (gastroesophageal reflux disease) Code(s): K21.9 - GASTRO-ESOPHAGEAL REFLUX DISEASE WITHOUT ESOPHAGITIS (9) HLD (hyperlipidemia) Code(s): E78.5 - HYPERLIPIDEMIA, UNSPECIFIED (10) HTN (hypertension) Code(s): I10 - ESSENTIAL (PRIMARY) HYPERTENSION Qualifiers: Hypertension type: essential hypertension Qualified Code(s): I10 - Essential (primary) hypertension (11) Vitamin D deficiency Code(s): E55.9 - VITAMIN D DEFICIENCY, UNSPECIFIED (12) Neuropathy Code(s): G62.9 - POLYNEUROPATHY, UNSPECIFIED (13) Lower extremity edema Code(s): R60.0 - LOCALIZED EDEMA (14) Acute exacerbation of congestive heart failure Code(s): I50.9 - HEART FAILURE, UNSPECIFIED Qualifiers: Congestive heart failure type: diastolic Qualified Code(s): I50.33 - Acute on chronic diastolic (congestive) heart failure (15) New onset a-fib Code(s): I48.91 - UNSPECIFIED ATRIAL FIBRILLATION (16) Hyperkalemia Code(s): E87.5 - HYPERKALEMIA (17) CAD (coronary artery disease) Code(s): I25.10 - ATHSCL HEART DISEASE OF [place] CORONARY ARTERY W/O ANG PCTRS Assessment/Plan (1) Acute exacerbation of congestive heart failure Assessment/Plan: Chest xray with interstitial edema/pleural effusion continue lasix daily weights low na diet cardiology following Code(s): I50.9 - HEART FAILURE, UNSPECIFIED Qualifiers: Congestive heart failure type: diastolic Qualified Code(s): I50.33 - Acute on chronic diastolic (congestive) heart failure (2) Lower extremity edema Assessment/Plan: acute on chronic, improved today lasix 40mg bid Code(s): R60.0 - LOCALIZED EDEMA (3) New onset a-fib Assessment/Plan: rapid afib w/ rvr overnight, new. rate controlled now cardiology following toprol 50mg bid and eliquis 2.5mg bid started Code(s): I48.91 - UNSPECIFIED ATRIAL FIBRILLATION (4) Hyperkalemia Assessment/Plan: improving Code(s): E87.5 - HYPERKALEMIA (5)Sepsis Assessment/Plan: afebrile overnight, leukocytosis and acute resp acidemia improved UA neg, UC/Blood cultures pending chest xray with b/l pleural effusions continue CAP coverage, tamiflu 2/5 ID following Code(s): A41.9 - SEPSIS, UNSPECIFIED ORGANISM (6) CKD (chronic kidney disease) Assessment/Plan: acute on chronic will monitor Code(s): N18.9 - CHRONIC KIDNEY DISEASE, UNSPECIFIED Qualifiers: Chronic kidney disease stage: stage 3 (moderate) Qualified Code(s): N18.3 - Chronic kidney disease, stage 3 (moderate) (7) Respiratory acidosis Assessment/Plan: improved continue bipap pulm following will monitor Code(s): E87.2 - ACIDOSIS (8) Osteoarthritis Assessment/Plan: stable will monitor for now Code(s): M19.90 - UNSPECIFIED OSTEOARTHRITIS, UNSPECIFIED SITE Qualifiers: Osteoarthritis location: multiple joints Osteoarthritis type: primary Qualified Code(s): M15.0 - Primary generalized (osteo)arthritis (9) 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 Assessment/Plan: continue lasix cardiology following Code(s): I08.0 - RHEUMATIC DISORDERS OF BOTH MITRAL AND AORTIC VALVES (10) Chest pain Assessment/Plan: resolved continue aspirin cardiology following ekg done Code(s): R07.9 - CHEST PAIN, UNSPECIFIED Qualifiers: Chest pain type: other chest pain Qualified Code(s): R07.89 - Other chest pain (11) Diabetes Assessment/Plan: stable hold metformin in the setting of worsening renal function BGM Insulin sliding scale Code(s): E11.9 - TYPE 2 DIABETES MELLITUS WITHOUT COMPLICATIONS Qualifiers: Diabetes mellitus type: type 2 Diabetes mellitus oil heaterman insulin use: without usp use Chronic kidney disease stage: stage 3 (moderate) (12) GERD (gastroesophageal reflux disease) Assessment/Plan: stable continue ranitidine Code(s): K21.9 - GASTRO-ESOPHAGEAL REFLUX DISEASE WITHOUT ESOPHAGITIS (13) HLD (hyperlipidemia) Assessment/Plan: stable continue atorvastatin aspirin 81mg Code(s): E78.5 - HYPERLIPIDEMIA, UNSPECIFIED (14) HTN (hypertension) Assessment/Plan: stable holding quinapril allow permissive htn in the setting of sepsis Code(s): I10 - ESSENTIAL (PRIMARY) HYPERTENSION Qualifiers: Hypertension type: essential hypertension Qualified Code(s): I10 - Essential (primary) hypertension (15) Vitamin D deficiency Assessment/Plan: stable continue vitamin d Code(s): E55.9 - VITAMIN D DEFICIENCY, UNSPECIFIED (16) Neuropathy Assessment/Plan: stable will monitor Code(s): G62.9 - POLYNEUROPATHY, UNSPECIFIED
--- NOTE | 2017-03-27 13:43 | PN ---
Progress Note, Physician Chief Complaint: ID Ceftriaxone & Tamiflu Fever resolved - Current Medication List Current Medications: Active Medications Acetaminophen (Tylenol -) 650 mg PO Q6H PRN PRN Reason: FEVER Apixaban (Eliquis -) 2.5 mg PO BID [facility] Last Admin: 03/27/17 11:29 Dose: 2.5 mg Aspirin (Asa -) 81 mg PO DAILY [facility] Last Admin: 03/27/17 09:16 Dose: 81 mg Atorvastatin Calcium (Lipitor -) 10 mg PO HS [facility] Last Admin: 03/27/17 00:02 Dose: 10 mg Cholecalciferol (Vitamin D3 -) 1,000 unit PO DAILY [facility] Last Admin: 03/27/17 09:16 Dose: 1,000 unit Furosemide (Lasix Injection -) 40 mg IVPUSH BID@0600,1400 [facility] Last Admin: 03/27/17 05:34 Dose: 40 mg CEFTRIAXONE 1 G/50 ML PREMIX (Ceftriaxone 1 Gm-D5w Bag) 50 mls @ 100 mls/hr IVPB DAILY [facility] Last Admin: 03/27/17 09:15 Dose: 100 mls/hr Insulin Aspart (Novolog Vial Sliding Scale -) 1 vial SQ TIDAC [facility] PRN Reason: Protocol Last Admin: 03/27/17 11:32 Dose: 6 units Loratadine (Claritin -) 10 mg PO DAILY [facility] Last Admin: 03/27/17 09:16 Dose: 10 mg Metoprolol Succinate (Toprol Xl -) 50 mg PO BID [facility] Last Admin: 03/27/17 11:29 Dose: 50 mg Multivitamins/Minerals/Vitamin C (Tab-A-Vit -) 1 tab PO DAILY [facility] Last Admin: 03/27/17 09:16 Dose: 1 tab Oseltamivir Phosphate (Tamiflu -) 30 mg PO BID [facility] Stop: 03/30/17 22:01 Last Admin: 03/27/17 09:16 Dose: 30 mg Ranitidine HCl (Zantac -) 150 mg PO BID [facility] Last Admin: 03/27/17 09:16 Dose: 150 mg - Objective Vital Signs: Vital Signs Temperature 98.4 F 03/27/17 09:35 Pulse Rate 89 03/27/17 09:35 Respiratory Rate 18 03/27/17 09:35 Blood Pressure 119/63 03/27/17 09:35 O2 Sat by Pulse Oximetry (%) 97 03/27/17 10:00 Labs: CBC, BMP 03/27/17 05:35 03/27/17 05:35 INR, PTT INR 1.48 (0.82-1.09) H 03/25/17 22:14 Assessment/Plan Microbiology 03/26/17 00:10 Urine - Urine Adams Urine Culture - Final NO GROWTH OBTAINED 03/26/17 00:10 Nasopharyngeal Swab Influenza Types A,B Antigen (ROSALIND) - Final 03/26/17 00:10 Nasopharyngeal Swab - Final 03/26/17 01:02 Blood - Peripheral Venous Blood Culture - Preliminary NO GROWTH OBTAINED AFTER 24 HOURS, INCUBATION TO CONTINUE FOR 4 DAYS. 03/26/17 01:02 Blood - Peripheral Venous Blood Culture - Preliminary NO GROWTH OBTAINED AFTER 24 HOURS, INCUBATION TO CONTINUE FOR 4 DAYS. Laboratory Tests 03/26/17 03/27/17 03/27/17 06:20 05:35 05:35 WBC 13.2 H 9.1 D Hgb 11.4 L Hct 34.0 L Plt Count 149 BUN 46 H Creatinine 1.[address] with bilateral pleural effusions no infiltrate seen Assessment Heart failure with Influenza like illness No PNA Fever and WBC elevation resolved Plan Complete Tamiflu 5 days Will stop Ceftriaxone tomorrow and offer po antibiotic [facility] HUNG
--- NOTE | 2017-03-27 14:14 | PN ---
Progress Note (short form) - Note Progress Note: PULMONARY Reports improvement in dyspnea but still tachypneic at rest. Leg swelling improving. +nonproductive cough. Last Vital Signs Temp Pulse Resp BP Pulse Ox 98.4 F 89 18 119/63 97 03/27/17 09:35 18 09:35 03/27/17 09:35 03/27/17 09:35 03/27/17 10:00 Intake & Output 03/24/17 03/25/17 03/26/17 03/27/17 23:59 23:59 23:59 23:59 Intake Total 300 Output Total 100 1100 1100 Balance -100 -1100 -800 Weight 95.254 kg 95.25 kg 108.879 kg Gen: tachypneic at rest Heart: irregular, +systolic murmur Lung: basilar rales Abd: soft, nontender Ext: + edema CBC, BMP 03/27/17 05:35 03/27/17 05:35 Active Medications Acetaminophen (Tylenol -) 650 mg PO Q6H PRN PRN Reason: FEVER Apixaban (Eliquis -) 2.5 mg PO BID [facility] Last Admin: 03/27/17 11:29 Dose: 2.5 mg Aspirin (Asa -) 81 mg PO DAILY [facility] Last Admin: 03/27/17 09:16 Dose: 81 mg Atorvastatin Calcium (Lipitor -) 10 mg PO HS [facility] Last Admin: 03/27/17 00:02 Dose: 10 mg Cholecalciferol (Vitamin D3 -) 1,000 unit PO DAILY [facility] Last Admin: 03/27/17 09:16 Dose: 1,000 unit Furosemide (Lasix Injection -) 40 mg IVPUSH BID@0600,1400 [facility] Last Admin: 03/27/17 05:34 Dose: 40 mg CEFTRIAXONE 1 G/50 ML PREMIX (Ceftriaxone 1 Gm-D5w Bag) 50 mls @ 100 mls/hr IVPB DAILY [facility] Last Admin: 03/27/17 09:15 Dose: 100 mls/hr Insulin Aspart (Novolog Vial Sliding Scale -) 1 vial SQ TIDAC [facility] PRN Reason: Protocol Last Admin: 03/27/17 11:32 Dose: 6 units Loratadine (Claritin -) 10 mg PO DAILY [facility] Last Admin: 03/27/17 09:16 Dose: 10 mg Metoprolol Succinate (Toprol Xl -) 50 mg PO BID [facility] Last Admin: 03/27/17 11:29 Dose: 50 mg Multivitamins/Minerals/Vitamin C (Tab-A-Vit -) 1 tab PO DAILY [facility] Last Admin: 03/27/17 09:16 Dose: 1 tab Oseltamivir Phosphate (Tamiflu -) 30 mg PO BID [facility] Stop: 03/30/17 22:01 Last Admin: 03/27/17 09:16 Dose: 30 mg Ranitidine HCl (Zantac -) 150 mg PO BID [facility] Last Admin: 03/27/17 09:16 Dose: 150 mg A/P Acute Hypoxic and Hypercapneic Respiratory Failure Acute Diastolic Heart Failure New Atrial Fibrillation Acute on Chronic Renal Failure r/o Pneumonia HTN DM - continue lasix - monitor urine output, creatinine - daily weights - rate control - continue anticoagulation - empiric antibiotics, tamiflu - f/u cultures - O2 to keep SpO2 >90% IMP ACUTE HYPOXEMIC/HYPERCAPNEIC RESPIRATORY FAILURE CHF PNEUMONIA HTN DM ACUTE ON CKD PLAN IV LASIX ABX PER ID INHALED BRONCHODILATORS F/U ABGS F/U CHEST X-RAYS CHEST CT CULTURES MONITOR LYTES,RENAL FUNCTION
[2017-03-27] MEDS ORDERED: PT OWN MED DRAWER 7, Y5N ONE (21:16)
[2017-03-28] MEDS: FUROSEMIDE 40 MG/4 ML INJECTABLE VIAL IVPUSH SCH ×2 (05:38→13:51)
[2017-03-28] MEDS: INSULIN SLIDING SCALE (NOVOLOG) 1 VIAL SQ SCH ×3 (06:24→16:28)
[2017-03-28 07:25] LABS: BASO % 0.5 % (0-2.0); EOS % 0.5 % (0-4.5); LYMPH % 15.4 % (8-40); MCH 31.5 pg (25.7-33.7); MCHC 32.4 g/dl (32.0-35.9); MEAN PLT VOLUME 9.3 fl (7.5-11.1); MONO % 10.1 % (3.8-10.2); NEUT % 73.5 % (42.8-82.8); PLATELET COUNT 159 K/MM3 (134-434); RBC 3.81 M/mm3 (4.00-5.60); RDW 13.4 % (11.9-15.9); WHITE BLOOD COUNT 10.6 K/mm3 (4.0-10.0)
[2017-03-28 07:56] LABS: CALCIUM 8.8 mg/dL (8.5-10.1); CHLORIDE 99 mmol/L (98-107); POTASSIUM 4.5 mmol/L (3.5-5.1); SODIUM 139 mmol/L (136-145)
[2017-03-28 08:00] LABS: ANION GAP 10 (8-16); BLOOD UREA NITROGEN 57 mg/dL (7-18); CO2 30 mmol/L (21-32); GLUCOSE,RANDOM 167 mg/dL (74-106); PHOSPHOROUS 5.4 mg/dL (2.5-4.9)
--- NOTE | 2017-03-28 09:57 | PN ---
Progress Note (short form) - Note Progress Note: feels better less sob Vital Signs Period Temp Pulse Resp BP Sys/Rodrigues Pulse Ox Last 24 Hr 97.5 F-98.5 F 91-111 18-20 112-133/62-96 97-98 cor-IRREG lungs decreased bs at bases abd soft,nt ext- less edema CBC, BMP 03/28/17 07:14 03/28/17 07:14 Microbiology 03/26/17 01:02 Blood - Peripheral Venous Blood Culture - Preliminary NO GROWTH OBTAINED AFTER 48 HOURS, INCUBATION TO CONTINUE FOR 3 DAYS. 03/26/17 01:02 Blood - Peripheral Venous Blood Culture - Preliminary NO GROWTH OBTAINED AFTER 48 HOURS, INCUBATION TO CONTINUE FOR 3 DAYS. 03/26/17 22:00 Urine For Antigen Detection Legionella Antigen - Final 03/26/17 22:00 Urine For Antigen Detection Streptococcus pneumoniae Antigen (M - Final 03/26/17 00:10 Urine - Urine Adams Urine Culture - Final NO GROWTH OBTAINED 03/26/17 00:10 Nasopharyngeal Swab Influenza Types A,B Antigen (ROSALIND) - Final 03/26/17 00:10 Nasopharyngeal Swab - Final cxray bibasilar effusions a/p fevers resolved day #3 tamiflu/rocephin for influenza like illness CHF- improving afib finish 5 days tamiflu can switch to po ceftin in am for another 4 days please call back if needed Problem List - Problems (1) Acute respiratory failure with hypoxemia Code(s): J96.01 - ACUTE RESPIRATORY FAILURE WITH HYPOXIA (2) Pneumonia Code(s): J18.9 - PNEUMONIA, UNSPECIFIED ORGANISM (3) Acute exacerbation of CHF (congestive heart failure) Code(s): I50.9 - HEART FAILURE, UNSPECIFIED
[2017-03-28] MEDS ORDERED: PT OWN MED DRAWER 7, Y5N ONE ×2 (10:35→20:59)
[2017-03-28] MEDS: OSELTAMIVIR PHOSPHATE 30 MG CAPSULE PO SCH ×2 (10:38→21:10)
[2017-03-28] MEDS: LORATADINE 10 MG TABLET PO SCH (10:38)
[2017-03-28] MEDS: MULTIVITAMINS (DAILY MVI) TABLET (FP) PO SCH (10:38)
[2017-03-28] MEDS: ASPIRIN 81 MG CHEWABLE TABLETS PO SCH (10:38)
[2017-03-28] MEDS: CHOLECALCIFEROL (VITAMIN D3) 1,000 UNIT TABLET (FP) PO SCH (10:38)
[2017-03-28] MEDS: CEFTRIAXONE 1 G/50 ML PREMIX 50 ML IVPB SCH (10:38)
[2017-03-28] MEDS: RANITIDINE HCL 150 MG TABLET (FP) PO SCH ×2 (10:38→21:10)
[2017-03-28] MEDS: APIXABAN 2.5 MG TABLET PO SCH ×2 (10:39→21:09)
--- NOTE | 2017-03-28 10:49 | PN ---
Progress Note (short form) - Note Progress Note: s: less sob. no cp palps dizzy o: Vital Signs Period Temp Pulse Resp BP Sys/Rodrigues Pulse Ox Last 24 Hr 97.5 F-98.5 F 91-111 18-20 112-133/62-96 97-98 JVD elevated, neck supple bibasilar dullness/rales, nl effort tachycardic, irregular nl s1, s2 2/6 murmur at sternal border and at apex. + bs soft nt nd, obese. no hsm ext with 1+ edema aaox3 no jaundice, diaphoresis Current Medications Generic Name Dose Route Start Last Admin Trade Name Freq PRN Reason Stop Dose Admin Acetaminophen 650 mg 03/26/17 17:19 Tylenol - PO Q6H PRN FEVER Apixaban 2.5 mg 03/27/17 11:15 03/28/17 10:39 Eliquis - PO 2.5 mg BID [facility] Administration Aspirin 81 mg 03/27/17 10:00 03/28/17 10:38 Asa - PO 81 mg DAILY [facility] Administration Atorvastatin Calcium 10 mg 03/26/17 22:00 03/27/17 21:19 Lipitor - PO 10 mg HS [facility] Administration Cholecalciferol 1,000 unit 03/27/17 10:00 03/28/17 10:38 Vitamin D3 - PO 1,000 unit DAILY [facility] Administration Furosemide 80 mg 03/28/17 09:42 Lasix Injection - IVPUSH BID@0600,1400 [facility] CEFTRIAXONE 1 G/50 ML PREMIX 50 mls @ 100 mls/hr 03/26/17 16:15 03/28/17 10: 38 Ceftriaxone 1 Gm-D5w Bag IVPB 100 mls/hr DAILY [facility] Administration Insulin Aspart 1 vial 03/26/17 16:30 03/28/17 06:24 Novolog Vial Sliding Scale - SQ 2 units TIDAC [facility] Administration Protocol Loratadine 10 mg 03/27/17 10:00 03/28/17 10:38 Claritin - PO 10 mg DAILY [facility] Administration Metoprolol Succinate 75 mg 03/28/17 10:46 Toprol Xl - PO BID [facility] Multivitamins/Minerals/Vitamin C 1 tab 03/27/17 10:00 03/28/17 10:38 Tab-A-Vit - PO 1 tab DAILY [facility] Administration Oseltamivir Phosphate 30 mg 03/26/17 13:30 03/28/17 10:38 Tamiflu - PO 03/30/17 22:01 30 mg BID [facility] Administration Ranitidine HCl 150 mg 03/26/17 22:00 03/28/17 10:38 Zantac - PO 150 mg BID [facility] Administration CBC, BMP 03/28/17 07:14 03/28/17 07:14 EKG: sinus tach 112 bpm. non-specific t wave ab 03/2017: n l lv size/fn. tds for rwma. rv not well seen. mod mac. mod-sev mr. chest ct: interstitial edema. bilateral, mod-large pleural effusions with compressive atelectasis. calc cors. calc av and mv. mildly dilated PA. 2014 stress: non-ischemic ekg, no sx's. small, mild basal inferolateral ischemia. nl ef. Carotid Doppler 08/2014: no sig stenosis tele: afib, rvr at times a/p: 86 yo m with h/o HTN, HPL, mod mr, s/p right CEA, ckd, gerd, DM who p/w weakness/respiratory distress acute diastolic chf exacerbation - may be triggered by progressive valvular disease either functional MS from MAC or MR progression (no mention of flail leaflet on echo). - ongoing diuresis, will increase lasix from 40 iv bid to 80 iv bid as still with significant le edema and wts not improving much - trop neg x 3. echo with preserved systolic function. no concern for acs at this time. new afib: -found this admit, with rvr -hr improved with toprol, will increase dose to 75 bid for better control -chadsvasc warrants AC, started eliquis 2.5 bid (low dose due to age and cr) presumed cad/hx of CEA/hl - calc cors with hx of mild inferior ischemia on stress testing. No signs of acs at this time. con't medical mgm't with asa, statin htn - monitor with ongoing med adjustments ckd - con't to monitor with ongoing diuresis. would hold home aceI
--- NOTE | 2017-03-28 13:04 | PN ---
Progress Note, Physician Chief Complaint: pt in bed alert, in no acute distress. Denies any chest pain, sob, n/v/d or fever/chills. - Current Medication List Current Medications: Active Medications Acetaminophen (Tylenol -) 650 mg PO Q6H PRN PRN Reason: FEVER Apixaban (Eliquis -) 2.5 mg PO BID [facility] Last Admin: 03/28/17 10:39 Dose: 2.5 mg Aspirin (Asa -) 81 mg PO DAILY [facility] Last Admin: 03/28/17 10:38 Dose: 81 mg Atorvastatin Calcium (Lipitor -) 10 mg PO HS [facility] Last Admin: 03/27/17 21:19 Dose: 10 mg Cefuroxime Axetil (Ceftin -) 250 mg PO BID [facility] Stop: 04/02/17 09:59 Cholecalciferol (Vitamin D3 -) 1,000 unit PO DAILY [facility] Last Admin: 03/28/17 10:38 Dose: 1,000 unit Furosemide (Lasix Injection -) 80 mg IVPUSH BID@0600,1400 [facility] Insulin Aspart (Novolog Vial Sliding Scale -) 1 vial SQ TIDAC [facility] PRN Reason: Protocol Last Admin: 03/28/17 12:05 Dose: 6 units Loratadine (Claritin -) 10 mg PO DAILY [facility] Last Admin: 03/28/17 10:38 Dose: 10 mg Metoprolol Succinate (Toprol Xl -) 75 mg PO BID [facility] Multivitamins/Minerals/Vitamin C (Tab-A-Vit -) 1 tab PO DAILY [facility] Last Admin: 03/28/17 10:38 Dose: 1 tab Oseltamivir Phosphate (Tamiflu -) 30 mg PO BID [facility] Stop: 03/30/17 22:01 Last Admin: 03/28/17 10:38 Dose: 30 mg Ranitidine HCl (Zantac -) 150 mg PO BID [facility] Last Admin: 03/28/17 10:38 Dose: 150 mg - Objective Vital Signs: Vital Signs Temperature 97.3 F L 03/28/17 10:00 Pulse Rate 120 H 03/28/17 10:00 Respiratory Rate 18 03/28/17 10:00 Blood Pressure 131/96 03/28/17 10:00 O2 Sat by Pulse Oximetry (%) 98 03/28/17 09:00 Constitutional: Yes: Well Nourished, No Distress, Calm Cardiovascular: Yes: Pulse Irregular, Murmur. No: Bruit, Gallop, Rub Respiratory: Yes: Regular, CTA Bilaterally, Rales (bibasilar). No: Rhonchi, Tachypnea, Wheezes Gastrointestinal: Yes: WNL, Normal Bowel Sounds, Soft, Abdomen, Obese. No: Distention, Tenderness Edema: Yes Edema: LLE: 1+, RLE: 1+ Neurological: Yes: WNL, Alert, Oriented Psychiatric: Yes: WNL, Alert Labs: CBC, BMP 03/28/17 07:14 03/28/17 07:14 INR, PTT INR 1.48 (0.82-1.09) H 03/25/17 22:14 Problem List - Problems (1) Sepsis Code(s): A41.9 - SEPSIS, UNSPECIFIED ORGANISM (2) CKD (chronic kidney disease) Code(s): N18.9 - CHRONIC KIDNEY DISEASE, UNSPECIFIED Qualifiers: Chronic kidney disease stage: stage 3 (moderate) Qualified Code(s): N18.3 - Chronic kidney disease, stage 3 (moderate) (3) Respiratory acidosis Code(s): E87.2 - ACIDOSIS (4) Osteoarthritis Code(s): M19.90 - UNSPECIFIED OSTEOARTHRITIS, UNSPECIFIED SITE Qualifiers: Osteoarthritis location: multiple joints Osteoarthritis type: primary Qualified Code(s): M15.0 - Primary generalized (osteo)arthritis (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 Code(s): I08.0 - RHEUMATIC DISORDERS OF BOTH MITRAL AND AORTIC VALVES (6) Chest pain Code(s): R07.9 - CHEST PAIN, UNSPECIFIED Qualifiers: Chest pain type: other chest pain Qualified Code(s): R07.89 - Other chest pain (7) Diabetes Code(s): E11.9 - TYPE 2 DIABETES MELLITUS WITHOUT COMPLICATIONS Qualifiers: Diabetes mellitus type: type 2 Diabetes mellitus care home insulin use: without care home use Chronic kidney disease stage: stage 3 (moderate) (8) GERD (gastroesophageal reflux disease) Code(s): K21.9 - GASTRO-ESOPHAGEAL REFLUX DISEASE WITHOUT ESOPHAGITIS (9) HLD (hyperlipidemia) Code(s): E78.5 - HYPERLIPIDEMIA, UNSPECIFIED (10) HTN (hypertension) Code(s): I10 - ESSENTIAL (PRIMARY) HYPERTENSION Qualifiers: Hypertension type: essential hypertension Qualified Code(s): I10 - Essential (primary) hypertension (11) Vitamin D deficiency Code(s): E55.9 - VITAMIN D DEFICIENCY, UNSPECIFIED (12) Neuropathy Code(s): G62.9 - POLYNEUROPATHY, UNSPECIFIED (13) Lower extremity edema Code(s): R60.0 - LOCALIZED EDEMA (14) Acute exacerbation of congestive heart failure Code(s): I50.9 - HEART FAILURE, UNSPECIFIED Qualifiers: Congestive heart failure type: diastolic Qualified Code(s): I50.33 - Acute on chronic diastolic (congestive) heart failure (15) New onset a-fib Code(s): I48.91 - UNSPECIFIED ATRIAL FIBRILLATION (16) Hyperkalemia Code(s): E87.5 - HYPERKALEMIA (17) CAD (coronary artery disease) Code(s): I25.10 - ATHSCL HEART DISEASE OF [place] CORONARY ARTERY W/O ANG PCTRS Assessment/Plan (1) Acute exacerbation of congestive heart failure Assessment/Plan: Chest xray with interstitial edema/pleural effusions, slight weight gain today lasix increased to 80mg bid daily weights, standing low na diet cardiology following Code(s): I50.9 - HEART FAILURE, UNSPECIFIED Qualifiers: Congestive heart failure type: diastolic Qualified Code(s): I50.33 - Acute on chronic diastolic (congestive) heart failure (2) Lower extremity edema Assessment/Plan: acute on chronic lasix increased to 80mg bid Code(s): R60.0 - LOCALIZED EDEMA (3) New onset a-fib Assessment/Plan: still in afib, coagulated on eliquis 2.5mg bid toprol increased to 75mg bid and cardiology following Code(s): I48.91 - UNSPECIFIED ATRIAL FIBRILLATION (4) Hyperkalemia Assessment/Plan: improved Code(s): E87.5 - HYPERKALEMIA (5)Sepsis Assessment/Plan: afebrile, improved resp acidemia UA/UC/blood cultures neg chest xray with b/l pleural effusions tamiflu 3/5 start po ceftin tomorrow x 4 days ID following Code(s): A41.9 - SEPSIS, UNSPECIFIED ORGANISM (6) CKD (chronic kidney disease) Assessment/Plan: acute on chronic, slightly worse today most likely secondary to diuresis Urine Na/Creatinine wnl holding quinapril Code(s): N18.9 - CHRONIC KIDNEY DISEASE, UNSPECIFIED Qualifiers: Chronic kidney disease stage: stage 3 (moderate) Qualified Code(s): N18.3 - Chronic kidney disease, stage 3 (moderate) (7) Respiratory acidosis Assessment/Plan: improved continue bipap at night pulm following will monitor Code(s): E87.2 - ACIDOSIS (8) Osteoarthritis Assessment/Plan: stable will monitor for now Code(s): M19.90 - UNSPECIFIED OSTEOARTHRITIS, UNSPECIFIED SITE Qualifiers: Osteoarthritis location: multiple joints Osteoarthritis type: primary Qualified Code(s): M15.0 - Primary generalized (osteo)arthritis (9) 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 Assessment/Plan: continue lasix cardiology following Code(s): I08.0 - RHEUMATIC DISORDERS OF BOTH MITRAL AND AORTIC VALVES (10) Chest pain Assessment/Plan: resolved [id number] neg continue aspirin cardiology following Code(s): R07.9 - CHEST PAIN, UNSPECIFIED Qualifiers: Chest pain type: other chest pain Qualified Code(s): R07.89 - Other chest pain (11) Diabetes Assessment/Plan: stable hold metformin in the setting of worsening renal function BGM Insulin sliding scale Code(s): E11.9 - TYPE 2 DIABETES MELLITUS WITHOUT COMPLICATIONS Qualifiers: Diabetes mellitus type: type 2 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: without care home use Chronic kidney disease stage: stage 3 (moderate) (12) GERD (gastroesophageal reflux disease) Assessment/Plan: stable continue ranitidine Code(s): K21.9 - GASTRO-ESOPHAGEAL REFLUX DISEASE WITHOUT ESOPHAGITIS (13) HLD (hyperlipidemia) Assessment/Plan: stable continue atorvastatin aspirin 81mg Code(s): E78.5 - HYPERLIPIDEMIA, UNSPECIFIED (14) HTN (hypertension) Assessment/Plan: stable holding quinapril in the setting of lyubov Code(s): I10 - ESSENTIAL (PRIMARY) HYPERTENSION Qualifiers: Hypertension type: essential hypertension Qualified Code(s): I10 - Essential (primary) hypertension (15) Vitamin D deficiency Assessment/Plan: stable continue vitamin d tabs Code(s): E55.9 - VITAMIN D DEFICIENCY, UNSPECIFIED (16) Neuropathy Assessment/Plan: stable PT consulted will monitor Code(s): G62.9 - POLYNEUROPATHY, UNSPECIFIED
--- NOTE | 2017-03-28 14:07 | PN ---
Progress Note, Physician History of Present Illness: pulmonary alert,feeling better,less dyspneic - Current Medication List Current Medications: Active Medications Acetaminophen (Tylenol -) 650 mg PO Q6H PRN PRN Reason: FEVER Apixaban (Eliquis -) 2.5 mg PO BID [facility] Last Admin: 03/28/17 10:39 Dose: 2.5 mg Aspirin (Asa -) 81 mg PO DAILY [facility] Last Admin: 03/28/17 10:38 Dose: 81 mg Atorvastatin Calcium (Lipitor -) 10 mg PO HS [facility] Last Admin: 03/27/17 21:19 Dose: 10 mg Cefuroxime Axetil (Ceftin -) 250 mg PO BID [facility] Stop: 04/02/17 09:59 Cholecalciferol (Vitamin D3 -) 1,000 unit PO DAILY [facility] Last Admin: 03/28/17 10:38 Dose: 1,000 unit Furosemide (Lasix Injection -) 80 mg IVPUSH BID@0600,1400 [facility] Last Admin: 03/28/17 13:51 Dose: 80 mg Insulin Aspart (Novolog Vial Sliding Scale -) 1 vial SQ TIDAC [facility] PRN Reason: Protocol Last Admin: 03/28/17 12:05 Dose: 6 units Loratadine (Claritin -) 10 mg PO DAILY [facility] Last Admin: 03/28/17 10:38 Dose: 10 mg Metoprolol Succinate (Toprol Xl -) 75 mg PO BID [facility] Multivitamins/Minerals/Vitamin C (Tab-A-Vit -) 1 tab PO DAILY [facility] Last Admin: 03/28/17 10:38 Dose: 1 tab Oseltamivir Phosphate (Tamiflu -) 30 mg PO BID [facility] Stop: 03/30/17 22:01 Last Admin: 03/28/17 10:38 Dose: 30 mg Ranitidine HCl (Zantac -) 150 mg PO BID [facility] Last Admin: 03/28/17 10:38 Dose: 150 mg - Objective Vital Signs: Vital Signs Temperature 97.3 F L 03/28/17 10:00 Pulse Rate 120 H 03/28/17 10:00 Respiratory Rate 18 03/28/17 10:00 Blood Pressure 131/96 03/28/17 10:00 O2 Sat by Pulse Oximetry (%) 98 03/28/17 09:00 Constitutional: Yes: Well Nourished, Calm Eyes: Yes: WNL HENT: Yes: WNL Neck: Yes: WNL Cardiovascular: Yes: Regular Rate and Rhythm, S1, S2 Respiratory: Yes: Rales (delisa crackles,few rhonchi) Gastrointestinal: Yes: Normal Bowel Sounds, Soft Extremities: Yes: WNL Edema: Yes Labs: CBC, BMP 03/28/17 07:14 03/28/17 07:14 INR, PTT INR 1.48 (0.82-1.09) H 03/25/17 22:14 Problem List - Problems (1) Acute hypoxemic respiratory failure Code(s): J96.01 - ACUTE RESPIRATORY FAILURE WITH HYPOXIA (2) Acute respiratory failure with hypoxia and hypercapnia Code(s): J96.01 - ACUTE RESPIRATORY FAILURE WITH HYPOXIA; J96.02 - ACUTE RESPIRATORY FAILURE WITH HYPERCAPNIA (3) Acute exacerbation of congestive heart failure Code(s): I50.9 - HEART FAILURE, UNSPECIFIED Qualifiers: Congestive heart failure type: diastolic Qualified Code(s): I50.33 - Acute on chronic diastolic (congestive) heart failure (4) Acute on chronic kidney failure Code(s): N17.9 - ACUTE KIDNEY FAILURE, UNSPECIFIED; N18.9 - CHRONIC KIDNEY DISEASE, UNSPECIFIED (5) DVT prophylaxis Code(s): [id number] - (6) Lower extremity edema Code(s): R60.0 - LOCALIZED EDEMA (7) 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 Code(s): I08.0 - RHEUMATIC DISORDERS OF BOTH MITRAL AND AORTIC VALVES (8) Pneumonia Code(s): J18.9 - PNEUMONIA, UNSPECIFIED ORGANISM (9) Chest pain Code(s): R07.9 - CHEST PAIN, UNSPECIFIED Qualifiers: Chest pain type: other chest pain Qualified Code(s): R07.89 - Other chest pain (10) Diabetes Code(s): E11.9 - TYPE 2 DIABETES MELLITUS WITHOUT COMPLICATIONS Qualifiers: Diabetes mellitus type: type 2 Diabetes mellitus residential insulin use: without residential use Chronic kidney disease stage: stage 3 (moderate) (11) HTN (hypertension) Code(s): I10 - ESSENTIAL (PRIMARY) HYPERTENSION Qualifiers: Hypertension type: essential hypertension Qualified Code(s): I10 - Essential (primary) hypertension Assessment/Plan IMP ACUTE HYPOXEMIC/HYPERCAPNEIC RESPIRATORY FAILURE IMPROVING CHF PNEUMONIA HTN DM ACUTE ON CKD PLAN IV LASIX ABX PER ID INHALED BRONCHODILATORS F/U ABGS F/U CHEST X-RAYS MONITOR LYTES,RENAL FUNCTION DR PIERSON Problem List - Problems (1) Acute hypoxemic respiratory failure Code(s): J96.01 - ACUTE RESPIRATORY FAILURE WITH HYPOXIA (2) Acute respiratory failure with hypoxia and hypercapnia Code(s): J96.01 - ACUTE RESPIRATORY FAILURE WITH HYPOXIA; J96.02 - ACUTE RESPIRATORY FAILURE WITH HYPERCAPNIA (3) Acute exacerbation of congestive heart failure Code(s): I50.9 - HEART FAILURE, UNSPECIFIED (4) Acute on chronic kidney failure Code(s): N17.9 - ACUTE KIDNEY FAILURE, UNSPECIFIED; N18.9 - CHRONIC KIDNEY DISEASE, UNSPECIFIED (5) DVT prophylaxis Code(s): [id number] - (6) Lower extremity edema Code(s): R60.0 - LOCALIZED EDEMA (7) 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 Code(s): I08.0 - RHEUMATIC DISORDERS OF BOTH MITRAL AND AORTIC VALVES (8) Pneumonia Code(s): J18.9 - PNEUMONIA, UNSPECIFIED ORGANISM (9) Chest pain Code(s): R07.9 - CHEST PAIN, UNSPECIFIED Qualifiers: Chest pain type: other chest pain Qualified Code(s): R07.89 - Other chest pain (10) Diabetes Code(s): E11.9 - TYPE 2 DIABETES MELLITUS WITHOUT COMPLICATIONS Qualifiers: Diabetes mellitus type: type 2 Diabetes 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
[2017-03-28] MEDS: ATORVASTATIN CA 10 MG TABLET (FP) PO SCH (21:09)
[2017-03-29] MEDS: FUROSEMIDE 40 MG/4 ML INJECTABLE VIAL IVPUSH SCH ×2 (06:12→13:52)
[2017-03-29] MEDS: INSULIN SLIDING SCALE (NOVOLOG) 1 VIAL SQ SCH ×3 (06:15→17:21)
[2017-03-29 07:41] LABS: BASO % 0.5 % (0-2.0); EOS % 0.1 % (0-4.5); HEMATOCRIT 38.6 % (35.4-49); HEMOGLOBIN 12.5 GM/dL (11.7-16.9); LYMPH % 13.4 % (8-40); MCH 31.6 pg (25.7-33.7); MCHC 32.5 g/dl (32.0-35.9); MEAN CELL VOLUME 97.3 fl (80-96); MEAN PLT VOLUME 9.8 fl (7.5-11.1); MONO % 6.7 % (3.8-10.2); NEUT % 79.3 % (42.8-82.8); PLATELET COUNT 178 K/MM3 (134-434); RBC 3.97 M/mm3 (4.00-5.60); RDW 13.3 % (11.9-15.9); WHITE BLOOD COUNT 9.7 K/mm3 (4.0-10.0)
[2017-03-29 08:40] LABS: ANION GAP 11 (8-16); BLOOD UREA NITROGEN 84 mg/dL (7-18); CALCIUM 8.8 mg/dL (8.5-10.1); CHLORIDE 102 mmol/L (98-107); CO2 27 mmol/L (21-32); GLUCOSE,RANDOM 218 mg/dL (74-106); MAGNESIUM 2.3 mg/dL (1.8-2.4); POTASSIUM 5.3 mmol/L (3.5-5.1); SODIUM 140 mmol/L (136-145)
[2017-03-29 08:42] LABS: CREATININE 2.5 mg/dL (0.7-1.3); PHOSPHOROUS 6.6 mg/dL (2.5-4.9)
[2017-03-29] MEDS: ASPIRIN 81 MG CHEWABLE TABLETS PO SCH (10:11)
[2017-03-29] MEDS: APIXABAN 2.5 MG TABLET PO SCH ×2 (10:11→22:13)
[2017-03-29] MEDS: RANITIDINE HCL 150 MG TABLET (FP) PO SCH ×2 (10:11→22:12)
[2017-03-29] MEDS: MULTIVITAMINS (DAILY MVI) TABLET (FP) PO SCH (10:11)
[2017-03-29] MEDS: LORATADINE 10 MG TABLET PO SCH (10:12)
[2017-03-29] MEDS: CHOLECALCIFEROL (VITAMIN D3) 1,000 UNIT TABLET (FP) PO SCH (10:12)
[2017-03-29] MEDS: CEFUROXIME AXETIL 250 MG TABLET PO SCH ×2 (10:12→22:12)
[2017-03-29] MEDS: OSELTAMIVIR PHOSPHATE 30 MG CAPSULE PO SCH ×2 (10:18→22:13)
[2017-03-29] MEDS ORDERED: PT OWN MED DRAWER 7, Y5N ONE ×2 (10:18→21:53)
--- NOTE | 2017-03-29 11:29 | PN ---
Progress Note, Physician History of Present Illness: pulmonary awake, confused,-resp distress - Current Medication List Current Medications: Active Medications Acetaminophen (Tylenol -) 650 mg PO Q6H PRN PRN Reason: FEVER Apixaban (Eliquis -) 2.5 mg PO BID [facility] Last Admin: 03/29/17 10:11 Dose: 2.5 mg Aspirin (Asa -) 81 mg PO DAILY [facility] Last Admin: 03/29/17 10:11 Dose: 81 mg Atorvastatin Calcium (Lipitor -) 10 mg PO HS [facility] Last Admin: 03/28/17 21:09 Dose: 10 mg Cefuroxime Axetil (Ceftin -) 250 mg PO BID [facility] Stop: 04/02/17 09:59 Last Admin: 03/29/17 10:12 Dose: 250 mg Cholecalciferol (Vitamin D3 -) 1,000 unit PO DAILY [facility] Last Admin: 03/29/17 10:12 Dose: 1,000 unit Furosemide (Lasix Injection -) 80 mg IVPUSH BID@0600,1400 [facility] Last Admin: 03/29/17 06:12 Dose: 80 mg Insulin Aspart (Novolog Vial Sliding Scale -) 1 vial SQ TIDAC [facility] PRN Reason: Protocol Last Admin: 03/29/17 11:23 Dose: 6 units Loratadine (Claritin -) 10 mg PO DAILY [facility] Last Admin: 03/29/17 10:12 Dose: 10 mg Metoprolol Succinate (Toprol Xl -) 75 mg PO BID [facility] Last Admin: 03/29/17 10:12 Dose: 75 mg Multivitamins/Minerals/Vitamin C (Tab-A-Vit -) 1 tab PO DAILY [facility] Last Admin: 03/29/17 10:11 Dose: 1 tab Oseltamivir Phosphate (Tamiflu -) 30 mg PO BID [facility] Stop: 03/30/17 22:01 Last Admin: 03/29/17 10:18 Dose: 30 mg Ranitidine HCl (Zantac -) 150 mg PO BID [facility] Last Admin: 03/29/17 10:11 Dose: 150 mg - Objective Vital Signs: Vital Signs Temperature 97.9 F 03/29/17 11:00 Pulse Rate 91 H 03/29/17 11:00 Respiratory Rate 18 03/29/17 11:00 Blood Pressure 142/86 03/29/17 11:00 O2 Sat by Pulse Oximetry (%) 99 03/29/17 08:30 Constitutional: Yes: Well Nourished, Calm Eyes: Yes: WNL HENT: Yes: WNL Neck: Yes: WNL Cardiovascular: Yes: Pulse Irregular, S1, S2 Respiratory: Yes: Rales, Rhonchi (delisa rales and scattered rhonchi) Gastrointestinal: Yes: Normal Bowel Sounds, Soft Extremities: Yes: WNL Edema: Yes Labs: CBC, BMP 03/29/17 06:30 03/29/17 06:30 INR, PTT INR 1.48 (0.82-1.09) H 03/25/17 22:14 Problem List - Problems (1) Acute hypoxemic respiratory failure Code(s): J96.01 - ACUTE RESPIRATORY FAILURE WITH HYPOXIA (2) Acute respiratory failure with hypoxia and hypercapnia Code(s): J96.01 - ACUTE RESPIRATORY FAILURE WITH HYPOXIA; J96.02 - ACUTE RESPIRATORY FAILURE WITH HYPERCAPNIA (3) Acute exacerbation of congestive heart failure Code(s): I50.9 - HEART FAILURE, UNSPECIFIED Qualifiers: Congestive heart failure type: diastolic Qualified Code(s): I50.33 - Acute on chronic diastolic (congestive) heart failure (4) Acute on chronic kidney failure Code(s): N17.9 - ACUTE KIDNEY FAILURE, UNSPECIFIED; N18.9 - CHRONIC KIDNEY DISEASE, UNSPECIFIED (5) DVT prophylaxis Code(s): [id number] - (6) Lower extremity edema Code(s): R60.0 - LOCALIZED EDEMA (7) 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 Code(s): I08.0 - RHEUMATIC DISORDERS OF BOTH MITRAL AND AORTIC VALVES (8) Pneumonia Code(s): J18.9 - PNEUMONIA, UNSPECIFIED ORGANISM (9) Chest pain Code(s): R07.9 - CHEST PAIN, UNSPECIFIED Qualifiers: Chest pain type: other chest pain Qualified Code(s): R07.89 - Other chest pain (10) Diabetes Code(s): E11.9 - TYPE 2 DIABETES MELLITUS WITHOUT COMPLICATIONS Qualifiers: Diabetes mellitus type: type 2 Diabetes 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 Assessment/Plan IMP ACUTE HYPOXEMIC/HYPERCAPNEIC RESPIRATORY FAILURE IMPROVING CHF PNEUMONIA HTN DM ACUTE ON CKD AFIB PLAN IV LASIX ABX PER ID INHALED BRONCHODILATORS F/U ABG TPDAY F/U CHEST X-RAY TODAY MONITOR LYTES,RENAL FUNCTION DR PIERSON Problem List - Problems (1) Acute hypoxemic respiratory failure Code(s): J96.01 - ACUTE RESPIRATORY FAILURE WITH HYPOXIA (2) Acute respiratory failure with hypoxia and hypercapnia Code(s): J96.01 - ACUTE RESPIRATORY FAILURE WITH HYPOXIA; J96.02 - ACUTE RESPIRATORY FAILURE WITH HYPERCAPNIA (3) Acute exacerbation of congestive heart failure Code(s): I50.9 - HEART FAILURE, UNSPECIFIED (4) Acute on chronic kidney failure Code(s): N17.9 - ACUTE KIDNEY FAILURE, UNSPECIFIED; N18.9 - CHRONIC KIDNEY DISEASE, UNSPECIFIED (5) DVT prophylaxis Code(s): [id number] - (6) Lower extremity edema Code(s): R60.0 - LOCALIZED EDEMA (7) 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 Code(s): I08.0 - RHEUMATIC DISORDERS OF BOTH MITRAL AND AORTIC VALVES (8) Pneumonia Code(s): J18.9 - PNEUMONIA, UNSPECIFIED ORGANISM (9) Chest pain Code(s): R07.9 - CHEST PAIN, UNSPECIFIED Qualifiers: Chest pain type: other chest pain Qualified Code(s): R07.89 - Other chest pain (10) Diabetes Code(s): E11.9 - TYPE 2 DIABETES MELLITUS WITHOUT COMPLICATIONS Qualifiers: Diabetes mellitus type: type 2 Diabetes 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
[2017-03-29 12:21] LABS: ARTERIAL BLD GAS O2 SATURATION 96.8 % (90-98.9); ARTERIAL BLOOD GAS BASE EXCESS 0.5 meq/l (-2-2); ARTERIAL BLOOD GAS PCO2 54.3 mmHg (35-45); ARTERIAL BLOOD GAS PO2 95.2 mmHg (68-100); ARTERIAL BLOOD GAS pH 7.32 (7.35-7.45)
[2017-03-29 12:25] LABS: ALLENS TEST POSITIVE
--- NOTE | 2017-03-29 13:53 | PN ---
Progress Note (short form) - Note Progress Note: CC: sob s: more lethargic today, converted to SR. denies sob, palps, dizziness, cp. lasix increased from 40 mg bid to 80 mg bid yesterday afternnon. toprol increased to 75 mg bid. o: Current Medications Acetaminophen (Tylenol -) 650 mg PO Q6H PRN PRN Reason: FEVER Apixaban (Eliquis -) 2.5 mg PO BID [facility] Last Admin: 03/29/17 10:11 Dose: 2.5 mg Aspirin (Asa -) 81 mg PO DAILY [facility] Last Admin: 03/29/17 10:11 Dose: 81 mg Atorvastatin Calcium (Lipitor -) 10 mg PO HS [facility] Last Admin: 03/28/17 21:09 Dose: 10 mg Cefuroxime Axetil (Ceftin -) 250 mg PO BID [facility] Stop: 04/02/17 09:59 Last Admin: 03/29/17 10:12 Dose: 250 mg Cholecalciferol (Vitamin D3 -) 1,000 unit PO DAILY [facility] Last Admin: 03/29/17 10:12 Dose: 1,000 unit Furosemide (Lasix Injection -) 80 mg IVPUSH BID@0600,1400 [facility] Last Admin: 03/29/17 13:52 Dose: Not Given Insulin Aspart (Novolog Vial Sliding Scale -) 1 vial SQ TIDAC [facility] PRN Reason: Protocol Last Admin: 03/29/17 11:23 Dose: 6 units Loratadine (Claritin -) 10 mg PO DAILY [facility] Last Admin: 03/29/17 10:12 Dose: 10 mg Metoprolol Succinate (Toprol Xl -) 75 mg PO BID [facility] Last Admin: 03/29/17 10:12 Dose: 75 mg Multivitamins/Minerals/Vitamin C (Tab-A-Vit -) 1 tab PO DAILY [facility] Last Admin: 03/29/17 10:11 Dose: 1 tab Oseltamivir Phosphate (Tamiflu -) 30 mg PO BID [facility] Stop: 03/30/17 22:01 Last Admin: 03/29/17 10:18 Dose: 30 mg Ranitidine HCl (Zantac -) 150 mg PO BID [facility] Last Admin: 03/29/17 10:11 Dose: 150 mg Vital Signs 03/29/17 03/29/17 03/29/17 08:30 08:45 10:00 Temperature 97.8 F Pulse Rate 88 Respiratory 20 Rate Blood Pressure 148/79 O2 Sat by Pulse 99 95 Oximetry (%) 03/29/17 03/29/17 03/29/17 11:00 14:44 16:35 Temperature 97.9 F 98.2 F Pulse Rate 91 H 86 Respiratory 18 18 Rate Blood Pressure 142/86 133/78 O2 Sat by Pulse 95 Oximetry (%) JVD elevated, neck supple bibasilar dullness/rales, nl effort rrr nl s1, s2 2/6 murmur at sternal border and at apex. + bs soft nt nd, obese. no hsm trace LE edema lethargic, but arousable with bipap. no jaundice, diaphoresis CBC, BMP 03/29/17 06:30 03/29/17 06:30 Laboratory Tests 03/29/17 11:30 ABG pH 7.32 L ABG pCO2 at Pt Temp 54.3 H ABG pO2 at Pt Temp 95.2 D EKG: sinus tach 112 bpm. non-specific t wave ab 03/2017: n l lv size/fn. tds for rwma. rv not well seen. mod mac. mod-sev mr. chest ct: interstitial edema. bilateral, mod-large pleural effusions with compressive atelectasis. calc cors. calc av and mv. mildly dilated PA. 2014 stress: non-ischemic ekg, no sx's. small, mild basal inferolateral ischemia. nl ef. Carotid Doppler 08/2014: no sig stenosis tele: conversion from afib to SR. a/p: 86 yo m with h/o HTN, HPL, mod mr, s/p right CEA, ckd, gerd, DM who p/w weakness/respiratory distress acute diastolic chf exacerbation/mod mac/mod-sev mr. - may be triggered by progressive valvular disease either functional MS from MAC or MR progression (no mention of flail leaflet on echo). - 03/28 ongoing diuresis, will increase lasix from 40 iv bid to 80 iv bid as still with significant le edema and wts not improving much - 03/29: Increased lethargy today. Bun/cr worsened and ABG this am with respiratory acidosis. LE edema improving. Lasix dose increased yesterday afternoon, will hold pm lasix dose today. trial of bipap. repeat cxr and ekg pending. Ongoing reassessment. May need to decrease lasix dose back to 40 IV bid tomorrow. - trop neg x 3. echo with preserved systolic function. no concern for acs at this time. new afib: -found this admit, with rvr -hr improved with toprol, 03/28 ncreased dose to 75 bid for better control --> conversion to SR 03/29 -chadsvasc warrants AC, started eliquis 2.5 bid (low dose due to age and cr) presumed cad/hx of CEA/hl - calc cors with hx of mild inferior ischemia on stress testing. No signs of acs at this time. con't medical mgm't with asa, statin htn - monitor with ongoing med adjustments ckd - con't to monitor with ongoing diuresis. would hold home aceI
--- NOTE | 2017-03-29 16:01 | EKG ---
Test Reason : Blood Pressure : / mmHG Vent. Rate : 085 BPM Atrial Rate : 085 BPM P-R Int : 176 ms QRS Dur : 092 ms QT Int : 370 ms P-R-T Axes : 020 010 002 degrees QTc Int : 440 ms NORMAL SINUS RHYTHM ST ELEVATION, CONSIDER EARLY REPOLARIZATION, PERICARDITIS, OR INJURY ABNORMAL ECG WHEN COMPARED WITH ECG OF 26-MAR-2017 22:42, SINUS RHYTHM HAS REPLACED ATRIAL FIBRILLATION T WAVE INVERSION NO LONGER EVIDENT IN ANTERIOR LEADS Confirmed by JESSY SOTO MD ([id number]) on 03/29/2017 4:01:36 PM Referred By: George CHAU Confirmed By:JESSY SOTO MD
--- NOTE | 2017-03-29 19:59 | PN ---
Progress Note, Physician Chief Complaint: As per nurse patient is lethargic less responsive, but at the time of examination, communicative - Current Medication List Current Medications: Active Medications Acetaminophen (Tylenol -) 650 mg PO Q6H PRN PRN Reason: FEVER Apixaban (Eliquis -) 2.5 mg PO BID [facility] Last Admin: 03/29/17 10:11 Dose: 2.5 mg Aspirin (Asa -) 81 mg PO DAILY [facility] Last Admin: 03/29/17 10:11 Dose: 81 mg Atorvastatin Calcium (Lipitor -) 10 mg PO HS [facility] Last Admin: 03/28/17 21:09 Dose: 10 mg Cefuroxime Axetil (Ceftin -) 250 mg PO BID [facility] Stop: 04/02/17 09:59 Last Admin: 03/29/17 10:12 Dose: 250 mg Cholecalciferol (Vitamin D3 -) 1,000 unit PO DAILY [facility] Last Admin: 03/29/17 10:12 Dose: 1,000 unit Furosemide (Lasix Injection -) 80 mg IVPUSH BID@0600,1400 [facility] Last Admin: 03/29/17 13:52 Dose: Not Given Insulin Aspart (Novolog Vial Sliding Scale -) 1 vial SQ TIDAC [facility] PRN Reason: Protocol Last Admin: 03/29/17 17:21 Dose: 4 units Loratadine (Claritin -) 10 mg PO DAILY [facility] Last Admin: 03/29/17 10:12 Dose: 10 mg Metoprolol Succinate (Toprol Xl -) 75 mg PO BID [facility] Last Admin: 03/29/17 10:12 Dose: 75 mg Multivitamins/Minerals/Vitamin C (Tab-A-Vit -) 1 tab PO DAILY [facility] Last Admin: 03/29/17 10:11 Dose: 1 tab Oseltamivir Phosphate (Tamiflu -) 30 mg PO BID [facility] Stop: 03/30/17 22:01 Last Admin: 03/29/17 10:18 Dose: 30 mg Ranitidine HCl (Zantac -) 150 mg PO BID [facility] Last Admin: 03/29/17 10:11 Dose: 150 mg - Objective Vital Signs: Vital Signs Temperature 98.4 F 03/29/17 17:50 Pulse Rate 85 03/29/17 17:50 Respiratory Rate 20 03/29/17 17:50 Blood Pressure 132/89 03/29/17 17:50 O2 Sat by Pulse Oximetry (%) 95 03/29/17 16:35 Elderly sick looking man , looks drowsy, no acute distress HEENT: Mm dry, anemia, facial puffiness NECK: JVD +, Trachea central CHEST: B/L wheezes and crepts CVS: SaS2 iR no m/g/r ABD: Obese distention, non tender Bs + EXT: B/L LE edema, pulses 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 Code(s): N17.9 - ACUTE KIDNEY FAILURE, UNSPECIFIED; N18.9 - CHRONIC KIDNEY DISEASE, UNSPECIFIED (2) Acute respiratory failure with hypoxemia Assessment/Plan: Patient has chronic respiratory distress now developed hypercabia will F/U Pulmonary consult recommendations, doing well on BIPAP Code(s): J96.01 - ACUTE RESPIRATORY FAILURE WITH HYPOXIA (3) Acute exacerbation of CHF (congestive heart failure) Assessment/Plan: Patient has H/O MR with Diastolic HF present with worsening pulmonary congestion on IV Lasix as per cardiology recommondations F/U IP/OP, wt, Renal functions. Code(s): I50.9 - HEART FAILURE, UNSPECIFIED (4) CAD (coronary artery disease) Assessment/Plan: Chronic no active issue trop X3 normal on admission Code(s): I25.10 - ATHSCL HEART DISEASE OF [place] CORONARY ARTERY W/O ANG PCTRS (5) HTN (hypertension) Assessment/Plan: Well controlled cont home meds Code(s): I10 - ESSENTIAL (PRIMARY) HYPERTENSION Qualifiers: Hypertension type: essential hypertension Qualified Code(s): I10 - Essential (primary) hypertension (6) A-fib Assessment/Plan: Known case of Afib rate controlled on AC Code(s): I48.91 - UNSPECIFIED ATRIAL FIBRILLATION (7) T2DM (type 2 diabetes mellitus) Assessment/Plan: Fs are in acceptable range Code(s): E11.9 - TYPE 2 DIABETES MELLITUS WITHOUT COMPLICATIONS (8) Dementia Assessment/Plan: Chronic no acute agitation Code(s): F03.90 - UNSPECIFIED DEMENTIA WITHOUT BEHAVIORAL DISTURBANCE (9) Influenza Assessment/Plan: Completed Tamiflu Code(s): J11.1 - FLU DUE TO UNIDENTIFIED INFLUENZA VIRUS W OTH RESP MANIFEST
[2017-03-29] MEDS ORDERED: SODIUM CHLORIDE 1,000 ML IV SCH (20:15)
[2017-03-29] MEDS: ATORVASTATIN CA 10 MG TABLET (FP) PO SCH (22:13)
[2017-03-30] MEDS: INSULIN SLIDING SCALE (NOVOLOG) 1 VIAL SQ SCH ×3 (06:09→16:30)
[2017-03-30 07:48] LABS: BASO % 0.3 % (0-2.0); EOS % 0.7 % (0-4.5); HEMATOCRIT 38.2 % (35.4-49); HEMOGLOBIN 12.6 GM/dL (11.7-16.9); LYMPH % 11.4 % (8-40); MCH 31.7 pg (25.7-33.7); MEAN CELL VOLUME 96.1 fl (80-96); MEAN PLT VOLUME 9.2 fl (7.5-11.1); MONO % 8.8 % (3.8-10.2); NEUT % 78.8 % (42.8-82.8); PLATELET COUNT 181 K/MM3 (134-434); RBC 3.97 M/mm3 (4.00-5.60); RDW 12.9 % (11.9-15.9); WHITE BLOOD COUNT 10.1 K/mm3 (4.0-10.0)
[2017-03-30 08:18] LABS: CHLORIDE 104 mmol/L (98-107); POTASSIUM 4.9 mmol/L (3.5-5.1); SODIUM 142 mmol/L (136-145)
[2017-03-30 08:27] LABS: ANION GAP 10 (8-16); BLOOD UREA NITROGEN 96 mg/dL (7-18); CALCIUM 8.4 mg/dL (8.5-10.1); CO2 28 mmol/L (21-32); CREATININE 2.5 mg/dL (0.7-1.3); GLUCOSE,RANDOM 242 mg/dL (74-106)
[2017-03-30] MEDS ORDERED: PT OWN MED DRAWER 7, Y5N ONE ×2 (09:26→21:10)
[2017-03-30] MEDS: ASPIRIN 81 MG CHEWABLE TABLETS PO SCH (09:29)
[2017-03-30] MEDS: CHOLECALCIFEROL (VITAMIN D3) 1,000 UNIT TABLET (FP) PO SCH (09:29)
[2017-03-30] MEDS: APIXABAN 2.5 MG TABLET PO SCH ×3 (09:31→21:43)
[2017-03-30] MEDS: CEFUROXIME AXETIL 250 MG TABLET PO SCH ×3 (09:31→21:41)
[2017-03-30] MEDS: MULTIVITAMINS (DAILY MVI) TABLET (FP) PO SCH (09:31)
[2017-03-30] MEDS: LORATADINE 10 MG TABLET PO SCH (09:31)
[2017-03-30] MEDS: OSELTAMIVIR PHOSPHATE 30 MG CAPSULE PO SCH ×3 (09:31→21:49)
[2017-03-30] MEDS: RANITIDINE HCL 150 MG TABLET (FP) PO SCH ×3 (09:31→21:44)
[2017-03-30 09:43] LABS: ARTERIAL BLOOD GAS pH 7.25 (7.35-7.45)
[2017-03-30 09:44] LABS: ALLENS TEST POSITIVE; ARTERIAL BLD GAS O2 SATURATION 98.9 % (90-98.9); ARTERIAL BLOOD GAS BASE EXCESS 0.1 meq/l (-2-2)
[2017-03-30 09:52] LABS: ARTERIAL BLOOD GAS PCO2 68.3 mmHg (35-45)
--- NOTE | 2017-03-30 11:56 | PN ---
Progress Note, Physician Chief Complaint: pulmonary drowsy on bipap,-resp distress - Current Medication List Current Medications: Active Medications Acetaminophen (Tylenol -) 650 mg PO Q6H PRN PRN Reason: FEVER Apixaban (Eliquis -) 2.5 mg PO BID [facility] Last Admin: 03/30/17 09:31 Dose: 2.5 mg Aspirin (Asa -) 81 mg PO DAILY [facility] Last Admin: 03/30/17 09:29 Dose: 81 mg Atorvastatin Calcium (Lipitor -) 10 mg PO HS [facility] Last Admin: 03/29/17 22:13 Dose: 10 mg Cefuroxime Axetil (Ceftin -) 250 mg PO BID [facility] Stop: 04/02/17 09:59 Last Admin: 03/30/17 09:31 Dose: 250 mg Cholecalciferol (Vitamin D3 -) 1,000 unit PO DAILY [facility] Last Admin: 03/30/17 09:29 Dose: 1,000 unit Sodium Chloride (Normal Saline -) 1,000 mls @ 75 mls/hr IV ASDIR [facility] Last Admin: 03/29/17 22:46 Dose: 75 mls/hr Insulin Aspart (Novolog Vial Sliding Scale -) 1 vial SQ TIDAC [facility] PRN Reason: Protocol Last Admin: 03/30/17 06:09 Dose: 4 units Loratadine (Claritin -) 10 mg PO DAILY [facility] Last Admin: 03/30/17 09:31 Dose: 10 mg Metoprolol Succinate (Toprol Xl -) 75 mg PO BID [facility] Last Admin: 03/30/17 09:30 Dose: 75 mg Multivitamins/Minerals/Vitamin C (Tab-A-Vit -) 1 tab PO DAILY [facility] Last Admin: 03/30/17 09:31 Dose: 1 tab Oseltamivir Phosphate (Tamiflu -) 30 mg PO BID [facility] Stop: 03/30/17 22:01 Last Admin: 03/30/17 09:31 Dose: 30 mg Ranitidine HCl (Zantac -) 150 mg PO BID [facility] Last Admin: 03/30/17 09:31 Dose: 150 mg - Objective Vital Signs: Vital Signs Temperature 98.5 F 03/30/17 10:00 Pulse Rate 89 03/30/17 10:00 Respiratory Rate 20 03/30/17 10:00 Blood Pressure 130/81 03/30/17 10:00 O2 Sat by Pulse Oximetry (%) 99 02/11/18 09:16 Constitutional: Yes: Calm, Other (drowsy) Eyes: Yes: WNL HENT: Yes: WNL Neck: Yes: WNL Cardiovascular: Yes: Pulse Irregular, S1, S2 Respiratory: Yes: Rales (delisa crackles) Gastrointestinal: Yes: Normal Bowel Sounds, Soft Extremities: Yes: WNL Edema: Yes Labs: CBC, BMP 03/30/17 06:30 03/30/17 06:30 INR, PTT INR 1.48 (0.82-1.09) H 03/25/17 22:14 Laboratory Tests 03/30/17 09:35 ABG pH 7.25 L ABG pCO2 at Pt Temp 68.3 H* D ABG pO2 at Pt Temp 171.0 H* D ABG HCO3 28.7 H ABG O2 Sat (Measured) 98.9 O2 Delivery Device Bipap Oxygen Flow Rate 60 Vent Rate 16 Pressure Support Vent 14/7 - ....Imaging Chest X-ray: Report Reviewed, Image Reviewed (BILATERAL PULMONARY VASCULAR CONGESTION) Problem List - Problems (1) Acute hypoxemic respiratory failure Code(s): J96.01 - ACUTE RESPIRATORY FAILURE WITH HYPOXIA (2) Acute respiratory failure with hypoxia and hypercapnia Code(s): J96.01 - ACUTE RESPIRATORY FAILURE WITH HYPOXIA; J96.02 - ACUTE RESPIRATORY FAILURE WITH HYPERCAPNIA (3) Acute exacerbation of congestive heart failure Code(s): I50.9 - HEART FAILURE, UNSPECIFIED Qualifiers: Congestive heart failure type: diastolic Qualified Code(s): I50.33 - Acute on chronic diastolic (congestive) heart failure (4) Acute on chronic kidney failure Code(s): N17.9 - ACUTE KIDNEY FAILURE, UNSPECIFIED; N18.9 - CHRONIC KIDNEY DISEASE, UNSPECIFIED (5) DVT prophylaxis Code(s): [id number] - (6) Lower extremity edema Code(s): R60.0 - LOCALIZED EDEMA (7) 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 Code(s): I08.0 - RHEUMATIC DISORDERS OF BOTH MITRAL AND AORTIC VALVES (8) Pneumonia Code(s): J18.9 - PNEUMONIA, UNSPECIFIED ORGANISM (9) Chest pain Code(s): R07.9 - CHEST PAIN, UNSPECIFIED Qualifiers: Chest pain type: other chest pain Qualified Code(s): R07.89 - Other chest pain (10) Diabetes Code(s): E11.9 - TYPE 2 DIABETES MELLITUS WITHOUT COMPLICATIONS Qualifiers: Diabetes mellitus type: type 2 Diabetes mellitus extermination inspector insulin use: without extermination inspector use Chronic kidney disease stage: stage 3 (moderate) (11) HTN (hypertension) Code(s): I10 - ESSENTIAL (PRIMARY) HYPERTENSION Qualifiers: Hypertension type: essential hypertension Qualified Code(s): I10 - Essential (primary) hypertension Assessment/Plan IMP ACUTE HYPOXEMIC/HYPERCAPNEIC RESPIRATORY FAILURE CHF PNEUMONIA HTN DM ACUTE ON CKD AFIB PLAN IV LASIX BIPAP ABX PER ID INHALED BRONCHODILATORS F/U ABG TODAY F/U CHEST X-RAY TODAY MONITOR LYTES,RENAL FUNCTION DR PIERSON Problem List - Problems (1) Acute hypoxemic respiratory failure Code(s): J96.01 - ACUTE RESPIRATORY FAILURE WITH HYPOXIA (2) Acute respiratory failure with hypoxia and hypercapnia Code(s): J96.01 - ACUTE RESPIRATORY FAILURE WITH HYPOXIA; J96.02 - ACUTE RESPIRATORY FAILURE WITH HYPERCAPNIA (3) Acute exacerbation of congestive heart failure Code(s): I50.9 - HEART FAILURE, UNSPECIFIED (4) Acute on chronic kidney failure Code(s): N17.9 - ACUTE KIDNEY FAILURE, UNSPECIFIED; N18.9 - CHRONIC KIDNEY DISEASE, UNSPECIFIED (5) DVT prophylaxis Code(s): [id number] - (6) Lower extremity edema Code(s): R60.0 - LOCALIZED EDEMA (7) 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 Code(s): I08.0 - RHEUMATIC DISORDERS OF BOTH MITRAL AND AORTIC VALVES (8) Pneumonia Code(s): J18.9 - PNEUMONIA, UNSPECIFIED ORGANISM (9) Chest pain Code(s): R07.9 - CHEST PAIN, UNSPECIFIED Qualifiers: Chest pain type: other chest pain Qualified Code(s): R07.89 - Other chest pain (10) Diabetes Code(s): E11.9 - TYPE 2 DIABETES MELLITUS WITHOUT COMPLICATIONS Qualifiers: Diabetes mellitus type: type 2 Diabetes mellitus extermination inspector insulin use: without extermination inspector use Chronic kidney disease stage: stage 3 (moderate) (11) HTN (hypertension) Code(s): I10 - ESSENTIAL (PRIMARY) HYPERTENSION Qualifiers: Hypertension type: essential hypertension Qualified Code(s): I10 - Essential (primary) hypertension
--- NOTE | 2017-03-30 12:01 | PN ---
Progress Note, Physician Chief Complaint: patient is more alert tolerating BIPAP. - Current Medication List Current Medications: Active Medications Generic Name Dose Route Start Last Admin Trade Name Freq PRN Reason Stop Dose Admin Acetaminophen 650 mg 03/26/17 17:19 Tylenol - PO Q6H PRN FEVER Albuterol/Ipratropium 1 amp 03/30/17 12:18 03/30/17 20:20 Duoneb - NEB 1 amp Q4H PRN Administration SHORTNESS OF BREATH Apixaban 2.5 mg 03/27/17 11:15 03/30/17 21:43 Eliquis - PO Not Given BID [facility] Aspirin 81 mg 03/27/17 10:00 03/30/17 09:29 Asa - PO 81 mg DAILY [facility] Administration Atorvastatin Calcium 10 mg 03/26/17 22:00 03/30/17 21:43 Lipitor - PO Not Given HS [facility] Cefuroxime Axetil 250 mg 03/29/17 10:00 03/30/17 21:41 Ceftin - PO 04/02/17 09:59 Not Given BID [facility] Cholecalciferol 1,000 unit 03/27/17 10:00 03/30/17 09:29 Vitamin D3 - PO 1,000 unit DAILY [facility] Administration Furosemide 40 mg 03/31/17 06:00 Lasix Injection - IVPUSH BID@0600,1400 [facility] Insulin Aspart 1 vial 03/26/17 16:30 03/30/17 16:30 Novolog Vial Sliding Scale - SQ 6 units TIDAC [facility] Administration Protocol Loratadine 10 mg 03/27/17 10:00 03/30/17 09:31 Claritin - PO 10 mg DAILY [facility] Administration Metoprolol Succinate 75 mg 03/28/17 10:46 03/30/17 21:44 Toprol Xl - PO Not Given BID [facility] Multivitamins/Minerals/Vitamin C 1 tab 03/27/17 10:00 03/30/17 09:31 Tab-A-Vit - PO 1 tab DAILY [facility] Administration Ranitidine HCl 150 mg 03/26/17 22:00 03/30/17 21:44 Zantac - PO Not Given BID [facility] - Objective Vital Signs: Vital Signs Temperature 98.5 F 03/30/17 10:00 Pulse Rate 89 03/30/17 10:00 Respiratory Rate 20 03/30/17 10:00 Blood Pressure 130/81 03/30/17 10:00 O2 Sat by Pulse Oximetry (%) 99 03/30/17 09:16 Elderly sick looking man , looks drowsy, no acute distress HEENT: Mm dry, anemia, facial puffiness NECK: JVD +, Trachea central CHEST: B/L wheezes and crepts CVS: SaS2 iR no m/g/r ABD: Obese distention, non tender Bs + EXT: B/L LE edema, pulses 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 Code(s): N17.9 - ACUTE KIDNEY FAILURE, UNSPECIFIED; N18.9 - CHRONIC KIDNEY DISEASE, UNSPECIFIED (2) Acute respiratory failure with hypoxemia Assessment/Plan: Patient has chronic respiratory distress now developed hypercabia will F/U Pulmonary consult recommendations, doing well on BIPAP Code(s): J96.01 - ACUTE RESPIRATORY FAILURE WITH HYPOXIA (3) Acute exacerbation of CHF (congestive heart failure) Assessment/Plan: Patient has H/O MR with Diastolic HF present with worsening pulmonary congestion on IV Lasix as per cardiology recommondations F/U IP/OP, wt, Renal functions. Code(s): I50.9 - HEART FAILURE, UNSPECIFIED (4) CAD (coronary artery disease) Assessment/Plan: Chronic no active issue trop X3 normal on admission Code(s): I25.10 - ATHSCL HEART DISEASE OF [place] CORONARY ARTERY W/O ANG PCTRS (5) HTN (hypertension) Assessment/Plan: Well controlled cont home meds Code(s): I10 - ESSENTIAL (PRIMARY) HYPERTENSION Qualifiers: Hypertension type: essential hypertension Qualified Code(s): I10 - Essential (primary) hypertension (6) A-fib Assessment/Plan: New onset Afib rate controlled on AC Code(s): I48.91 - UNSPECIFIED ATRIAL FIBRILLATION (7) T2DM (type 2 diabetes mellitus) Assessment/Plan: Fs are in acceptable range Code(s): E11.9 - TYPE 2 DIABETES MELLITUS WITHOUT COMPLICATIONS (8) Dementia Assessment/Plan: Chronic no acute agitation Code(s): F03.90 - UNSPECIFIED DEMENTIA WITHOUT BEHAVIORAL DISTURBANCE (9) Influenza Assessment/Plan: Completed Tamiflu Code(s): J11.1 - FLU DUE TO UNIDENTIFIED INFLUENZA VIRUS W OTH RESP MANIFEST
--- NOTE | 2017-03-30 13:55 | CONSULT ---
Consult Consult Specialty:: Nephrology ( Se/ Sunday) Reason for Consultation:: Acute kidney failure - History of Present Illness Chief Complaint: The patient has been treated for Acute respiratory Infection, and developed acute on Chronic Kidney failue. History of Present Illness: 86 yo with h/o HTN, HPL, Mitral regurgitatyion, Anemia, CKD3,GERD, DM who p/w weakness/respiratory distress His dyspnea progressively worsened and he came to the hospital. He has Chronic LE edema, also progressively worsening. Denies chest pain, dizziness, claudication, bleeding or transient neurologic symtptoms. . No LOC or syncope. He had Hyperkalemia on admission, and was traeted appropriately in th ER. - History Source History Provided By: Family Member Limitations to Obtaining History: Physical Impairment - Past Medical History Cardio/Vascular: Yes: CHF, HTN, Hyperlipdemia Gastrointestinal: Yes: GERD Renal/: Yes: Renal Inusuff Musculoskeletal: Yes: Other (Herniated Disc, Spinal Stenosis) Endocrine: Yes: Diabetes Mellitus - Past Surgical History Past Surgical History: Yes: Carotid Endarterectomy (right), Joint Replacement ( bilateral knee) - Alcohol/Substance Use Hx Alcohol Use: No History of Substance Use: reports: None - Smoking History Smoking history: Former smoker Have you smoked in the past 12 months: No If you are a former smoker, when did you quit?: 40 YRS AGO - Social History Usual Living Arrangement: With Spouse ADL: Independent History of Recent Travel: No Home Medications - Allergies Allergies/Adverse Reactions: Allergies Allergy/AdvReac Type Severity Reaction Status Date / Time No Known Allergies Allergy Verified 03/25/17 21:40 - Home Medications Home Medications: Ambulatory Orders Atorvastatin Ca [Lipitor] 10 mg PO HS 10/22/13 Cetirizine HCl [Zyrtec -] 10 mg PO DAILY 10/22/13 Cholecalciferol (Vitamin D3) [Vitamin D3 -] 1,000 unit PO DAILY 10/22/13 Diazepam [Valium -] 10 mg PO TID 10/22/13 Metformin HCl [Metformin HCl ER] 1,000 mg PO BID 10/22/13 Multivitamins [Multivit ([facility] Formulary)] 1 tab PO DAILY 10/22/13 Quinapril HCl [Accupril -] 40 mg PO DAILY 10/22/13 Ranitidine HCl 150 mg PO BID 10/22/13 Oxycodone HCl/Acetaminophen [Percocet 5-325 mg Tablet] 1 tab PO BID PRN #20 tablet MDD 10mg 04/23/16 Aspirin 81 mg PO DAILY 03/26/17 Diclofenac Sodium 75 mg PO BID 03/26/17 Family Disease History - Family Disease History Family Disease History: Other: Sister (dementia) Review of Systems - Review of Systems Constitutional: reports: Weakness Neck: reports: Stiffness Cardiovascular: reports: Edema, Shortness of Breath Respiratory: reports: Orthopnea, SOB, SOB on Exertion Gastrointestinal: denies: Abdominal Pain Genitourinary: reports: Frequency, Incontinence. denies: Burning Musculoskeletal: reports: Back Pain Physical Exam Vital Signs: Vital Signs Temperature 98.5 F 03/30/17 10:00 Pulse Rate 89 03/30/17 10:00 Respiratory Rate 20 03/30/17 10:00 Blood Pressure 130/81 03/30/17 10:00 O2 Sat by Pulse Oximetry (%) 99 03/30/17 12:00 Constitutional: Yes: Anxious, Pallor HENT: Yes: Normocephalic Neck: Yes: Trachea Midline Cardiovascular: Yes: Pulse Irregular, S1, S2 Respiratory: Yes: Diminished, On BiPap Gastrointestinal: Yes: Soft, Abdomen, Obese Renal/: Yes: Incontinence. No: CVA Tenderness - Left, CVA Tenderness - Right , Hematuria Edema: Yes Neurological: Yes: Alert, Confusion Labs: CBC, BMP 03/30/17 06:30 03/30/17 06:30 Problem List - Problems (1) A-fib Code(s): I48.91 - UNSPECIFIED ATRIAL FIBRILLATION (2) Acute exacerbation of congestive heart failure Code(s): I50.9 - HEART FAILURE, UNSPECIFIED Qualifiers: Congestive heart failure type: diastolic Qualified Code(s): I50.33 - Acute on chronic diastolic (congestive) heart failure (3) Acute hypoxemic respiratory failure Code(s): J96.01 - ACUTE RESPIRATORY FAILURE WITH HYPOXIA (4) Acute on chronic kidney failure Code(s): N17.9 - ACUTE KIDNEY FAILURE, UNSPECIFIED; N18.9 - CHRONIC KIDNEY DISEASE, UNSPECIFIED (5) BPH (benign prostatic hyperplasia) Code(s): N40.0 - BENIGN PROSTATIC HYPERPLASIA WITHOUT LOWER URINRY TRACT SYMP Qualifiers: Lower urinary tract symptom presence: symptoms absent Qualified Code(s): N40.0 - Benign prostatic hyperplasia without lower urinary tract symptoms (6) CKD (chronic kidney disease) Code(s): N18.9 - CHRONIC KIDNEY DISEASE, UNSPECIFIED Qualifiers: Chronic kidney disease stage: stage 3 (moderate) Qualified Code(s): N18.3 - Chronic kidney disease, stage 3 (moderate) (7) Dementia Code(s): F03.90 - UNSPECIFIED DEMENTIA WITHOUT BEHAVIORAL DISTURBANCE (8) Lower extremity edema Code(s): R60.0 - LOCALIZED EDEMA (9) Diabetes Code(s): E11.9 - TYPE 2 DIABETES MELLITUS WITHOUT COMPLICATIONS Qualifiers: Diabetes mellitus type: type 2 Diabetes mellitus terminal manager insulin use: without prison use Chronic kidney disease stage: stage 3 (moderate) (10) GERD (gastroesophageal reflux disease) Code(s): K21.9 - GASTRO-ESOPHAGEAL REFLUX DISEASE WITHOUT ESOPHAGITIS (11) HLD (hyperlipidemia) Code(s): E78.5 - HYPERLIPIDEMIA, UNSPECIFIED (12) HTN (hypertension) Code(s): I10 - ESSENTIAL (PRIMARY) HYPERTENSION Qualifiers: Hypertension type: essential hypertension Qualified Code(s): I10 - Essential (primary) hypertension Assessment/Plan 86 y/o male with multiple medical problems,and protracted medical history admitted with acute and progressive shortness of breath. Acute on Chronic CHF, Acute on Chronic Respiratory failure with Possible Respiratory infection being entertained. The patient now on Ceftriaxone and Tamiflu. The Renal functions have worsened since admission. The patient has an underlying CKD, and now has an acute Hemodynamic CKD. The HENRY is most likely due to reduced effective renal perfusion and is dependent of Cardiac instability , Sepsis and other hemodynamic factors. Suggest: Will continue the current regimen. The patient may need loop diuretics in the long run, since edema is a major factor that need to be addressed . Should consider restarting Lasix at moderately high doses, even though it is expected to cause some degree of worsening Azotemia. Will avoid ASHLEY Inhibitors, and ARBs. Will Avoid NSAIDS. The patient has BPH. If Azotemia worsens, will get Renal/ Pelvic Sonogram. Will monitor the renal functions with you. Thank you. Will follow with you. Evelyne Saez MD
[2017-03-30 15:05] LABS: ARTERIAL BLD GAS O2 SATURATION 99.4 % (90-98.9); ARTERIAL BLOOD GAS BASE EXCESS 0.4 meq/l (-2-2); ARTERIAL BLOOD GAS PCO2 61.7 mmHg (35-45); ARTERIAL BLOOD GAS pH 7.28 (7.35-7.45)
[2017-03-30 15:06] LABS: ALLENS TEST POSITIVE
[2017-03-30] MEDS: ALBUTEROL SO4 2.5/IPRATROPIUM 0.5 INH SOL 3 ML VIAL.NEB. NEB PRN ×2 (15:06→20:20)
--- NOTE | 2017-03-30 15:58 | PN ---
Progress Note (short form) - Note Progress Note: CC: sob s: Yesterday had worsening lethargy. EKG with prominent early repolarization abnormalities in anterolateral leads. CXR still with signficant congestion and pleural effusion. However ABG with respiratory acidosis and pm lasix dose was held in case metabolic alkalosis from diuresis and/or increasing bun/cr contributing to his clincial deterioration. per nursing, additionally recieved IVF overnight (now off). repeat ekg this morning stable with less prominent early repolarization abnormalities. repeat ABG ordered this morning --> worsened respiratory acidosis. Discussed with nursing and pulmonary consult notified. remains lethargic on bipap, easily arousable and able to converse when awake. Denies respiratory distress. Denies cp, palps, dizziness. + weakness. o: Current Medications Acetaminophen (Tylenol -) 650 mg PO Q6H PRN PRN Reason: FEVER Albuterol/Ipratropium (Duoneb -) 1 amp NEB Q4H PRN PRN Reason: SHORTNESS OF BREATH Apixaban (Eliquis -) 2.5 mg PO BID [facility] Last Admin: 03/30/17 09:31 Dose: 2.5 mg Aspirin (Asa -) 81 mg PO DAILY [facility] Last Admin: 03/30/17 09:29 Dose: 81 mg Atorvastatin Calcium (Lipitor -) 10 mg PO HS [facility] Last Admin: 03/29/17 22:13 Dose: 10 mg Cefuroxime Axetil (Ceftin -) 250 mg PO BID [facility] Stop: 04/02/17 09:59 Last Admin: 03/30/17 09:31 Dose: 250 mg Cholecalciferol (Vitamin D3 -) 1,000 unit PO DAILY [facility] Last Admin: 03/30/17 09:29 Dose: 1,000 unit Insulin Aspart (Novolog Vial Sliding Scale -) 1 vial SQ TIDAC [facility] PRN Reason: Protocol Last Admin: 03/30/17 11:58 Dose: 4 units Loratadine (Claritin -) 10 mg PO DAILY [facility] Last Admin: 03/30/17 09:31 Dose: 10 mg Metoprolol Succinate (Toprol Xl -) 75 mg PO BID [facility] Last Admin: 03/30/17 09:30 Dose: 75 mg Multivitamins/Minerals/Vitamin C (Tab-A-Vit -) 1 tab PO DAILY [facility] Last Admin: 03/30/17 09:31 Dose: 1 tab Oseltamivir Phosphate (Tamiflu -) 30 mg PO BID [facility] Stop: 03/30/17 22:01 Last Admin: 03/30/17 09:31 Dose: 30 mg Ranitidine HCl (Zantac -) 150 mg PO BID [facility] Last Admin: 03/30/17 09:31 Dose: 150 mg Vital Signs - 24 hr 03/29/17 03/29/17 03/29/17 16:35 17:50 21:00 Temperature 98.4 F 97.4 F L Pulse Rate 85 87 Respiratory 20 26 H Rate Blood Pressure 132/89 134/87 O2 Sat by Pulse 95 100 Oximetry (%) 03/29/17 03/29/17 03/30/17 21:18 22:00 01:43 Temperature 98.0 F 97.3 F L Pulse Rate 85 86 Respiratory 24 20 Rate Blood Pressure 146/93 126/79 O2 Sat by Pulse 98 Oximetry (%) 03/30/17 03/30/17 03/30/17 01:54 05:39 06:05 Temperature 98.4 F Pulse Rate 81 Respiratory 20 Rate Blood Pressure 128/68 O2 Sat by Pulse 98 98 Oximetry (%) 03/30/17 03/30/17 03/30/17 09:00 09:16 10:00 Temperature 98.5 F Pulse Rate 89 Respiratory 20 Rate Blood Pressure 130/81 O2 Sat by Pulse 99 99 Oximetry (%) 03/30/17 03/30/17 12:00 14:17 Temperature 98.3 F Pulse Rate 84 Respiratory 18 Rate Blood Pressure 123/58 O2 Sat by Pulse 99 Oximetry (%) Intake & Output 03/28/17 03/29/17 03/30/17 03/31/17 07:59 07:59 07:59 07:59 Intake Total 500 1030 322 Output Total 1400 400 0 Balance -900 630 322 Weight 243 lb 6 oz 241 lb 6 oz JVD elevated, neck supple bibasilar dullness/rales, nl effort. bipap on. rrr nl s1, s2 2/6 murmur at sternal border and at apex. + bs soft nt nd, obese. no hsm trace-1+ LE edema lethargic, but arousable . no carotid bruit no jaundice, diaphoresis diminshed dp/pt CBC, BMP 03/30/17 06:30 03/30/17 06:30 Laboratory Tests 03/29/17 03/30/17 06:30 09:35 ABG pH 7.25 L ABG pCO2 at Pt Temp 68.3 H* D ABG pO2 at Pt Temp 171.0 H* D BUN 84 H D Creatinine 2.5 H D EKG 03/29: sr, prominent j point elevation/early repolarization in anterolateral , lateral leads. no reciprocal depressions. EKG 03/30: sr, early repolarization changes are less prominent. EKG: sinus tach 112 bpm. non-specific t wave ab tele: remains in SR, 80's. 2 brief runs of svt. echo 03/2017: n l lv size/fn. tds for rwma. rv not well seen. mod mac. mod- sev mr. chest ct: interstitial edema. bilateral, mod-large pleural effusions with compressive atelectasis. calc cors. calc av and mv. mildly dilated PA. 2014 stress: non-ischemic ekg, no sx's. small, mild basal inferolateral ischemia. nl ef. Carotid Doppler 08/2014: no sig stenosis a/p: 86 yo m with h/o HTN, HPL, mod mr, s/p right CEA, ckd, gerd, DM who p/w weakness/respiratory distress acute diastolic chf exacerbation/mod mac/mod-sev mr - may be triggered by progressive valvular disease either functional MS from MAC or MR progression (no mention of flail leaflet on echo). - trop neg x 3. echo with preserved systolic function. no concern for acs at this time. - 03/28 ongoing diuresis, will increase lasix from 40 iv bid to 80 iv bid as still with significant le edema and wts not improving much - 03/29: Increased lethargy today. Bun/cr worsened and ABG this am with respiratory acidosis. Lasix dose increased yesterday afternoon to 80 mg IV bid , will hold pm lasix dose today. trial of bipap. repeat cxr and ekg pending. Ongoing reassessment. May need to decrease lasix dose back to 40 IV bid once ready to resume. - 03/30: lasix 80 mg IV x 1 yesterday morning. Per nursing, received IVF overnight --> bun/cr still worse today. Worsened respiratory acidosis on abg this morning. Pulm notified and bipap setting were adjusted. renal consulted --> resumed lasix 40 IV BID for tomorrow. HR well controlled. acute respiratory failure with hypercapnea - ongoing mgmt with bipap per pulm new afib (conversion to sinus rhythm 03/29): - dx this admit, with rvr -hr improved with toprol, 03/28 ncreased dose to 75 bid for better control --> conversion to SR 03/29. Remains in SR. -chadsvasc warrants AC, started eliquis 2.5 bid (low dose due to age and cr) presumed cad/hx of CEA/hl - calc cors with hx of mild inferior ischemia on stress testing. No signs of acs at this time. con't medical mgm't with asa, statin. hgb stable - repeat ekg when lethargic with prominent early repolarization abnormalities ( no reciprocal depressions) --> improved on subsequent ekg. htn - controlled on current regimen ckd with lyubov - worsening renal function as mentioned above. holding home acei. renal following.
--- NOTE | 2017-03-30 16:50 | EKG ---
Test Reason : Blood Pressure : / mmHG Vent. Rate : 084 BPM Atrial Rate : 084 BPM P-R Int : 168 ms QRS Dur : 088 ms QT Int : 362 ms P-R-T Axes : 027 029 015 degrees QTc Int : 427 ms NORMAL SINUS RHYTHM ST ELEVATION, CONSIDER EARLY REPOLARIZATION, PERICARDITIS, OR INJURY ABNORMAL ECG WHEN COMPARED WITH ECG OF 29-MAR-2017 14:11, NO SIGNIFICANT CHANGE WAS FOUND Confirmed by JESSY SOTO MD ([id number]) on 03/30/2017 4:50:32 PM Referred By: George CHAU Confirmed By:JESSY SOTO MD
[2017-03-30] MEDS: ATORVASTATIN CA 10 MG TABLET (FP) PO SCH ×2 (21:11→21:43)
[2017-03-30 22:40] LABS: ALLENS TEST POSITIVE; ARTERIAL BLD GAS O2 SATURATION 98.3 % (90-98.9); ARTERIAL BLOOD GAS BASE EXCESS 4.3 meq/l (-2-2); ARTERIAL BLOOD GAS PCO2 54.6 mmHg (35-45); ARTERIAL BLOOD GAS pH 7.36 (7.35-7.45)
--- NOTE | 2017-03-30 23:06 | HOSP ---
Subjective - Review of Symptoms Events since last encounter: called to see pt as nurse is concerned pt much less responsive than prior. Unable to swallow water or pills due to lethargy. Subjective: Pt shakes head no when asked if anything is bothering him and nods head yes when asked if everything is ok. barely opens eyes to questions Physical Examination Vital Signs: Vital Signs Temperature 98.5 F 03/30/17 16:00 Pulse Rate 89 03/30/17 16:00 Respiratory Rate 18 03/30/17 16:00 Blood Pressure 130/81 03/30/17 16:00 O2 Sat by Pulse Oximetry (%) 99 03/30/17 20:20 Constitutional: Yes: Other (responds to verbal and light tactile stimuli) Cardiovascular: Yes: Regular Rate and Rhythm, Murmur Respiratory: Yes: Other (diminished bilat bases) Gastrointestinal: Yes: Normal Bowel Sounds, Soft Labs: CBC, BMP 03/30/17 06:30 03/30/17 06:30 Hospitalist Encounter Assessment: pt noted with increased lethargy. will check abg to r/o worsening respiratory acidosis. Addendum 11pm - ABG improved from 3pm, cont current treatment including bipap.
[2017-03-31] MEDS ORDERED: FUROSEMIDE 40 MG/4 ML INJECTABLE VIAL IVPUSH SCH (06:00)
[2017-03-31] MEDS: INSULIN SLIDING SCALE (NOVOLOG) 1 VIAL SQ SCH ×3 (06:18→16:29)
[2017-03-31 06:58] LABS: BASO % 0.3 % (0-2.0); EOS % 0.3 % (0-4.5); HEMATOCRIT 40.7 % (35.4-49); LYMPH % 12.2 % (8-40); MCHC 31.8 g/dl (32.0-35.9); MEAN CELL VOLUME 97.5 fl (80-96); MEAN PLT VOLUME 9.3 fl (7.5-11.1); MONO % 9.2 % (3.8-10.2); PLATELET COUNT 189 K/MM3 (134-434); RBC 4.18 M/mm3 (4.00-5.60); RDW 13.3 % (11.9-15.9); WHITE BLOOD COUNT 8.5 K/mm3 (4.0-10.0)
[2017-03-31 07:17] LABS: ANION GAP 9 (8-16); CHLORIDE 106 mmol/L (98-107); CO2 31 mmol/L (21-32); CREATININE 2.4 mg/dL (0.7-1.3); GLUCOSE,RANDOM 225 mg/dL (74-106); POTASSIUM 5.2 mmol/L (3.5-5.1); SODIUM 146 mmol/L (136-145)
[2017-03-31] MEDS ORDERED: INSULIN (NOVOLOG) ASPART 100 UNITS/ML 10ML VIAL ONE (07:32)
[2017-03-31 07:37] LABS: BLOOD UREA NITROGEN 113 mg/dL (7-18)
[2017-03-31] MEDS: ALBUTEROL SO4 2.5/IPRATROPIUM 0.5 INH SOL 3 ML VIAL.NEB. NEB PRN (07:48)
--- NOTE | 2017-03-31 08:44 | PN ---
Progress Note, Physician Chief Complaint: resp distress History of Present Illness: lethargic, bipap on. opens eyes briefly. comfortable appearing no cigs - Current Medication List Current Medications: Active Medications Acetaminophen (Tylenol -) 650 mg PO Q6H PRN PRN Reason: FEVER Albuterol/Ipratropium (Duoneb -) 1 amp NEB Q4H PRN PRN Reason: SHORTNESS OF BREATH Last Admin: 03/31/17 07:48 Dose: 1 amp Apixaban (Eliquis -) 2.5 mg PO BID [facility] Last Admin: 03/30/17 21:43 Dose: Not Given Aspirin (Asa -) 81 mg PO DAILY [facility] Last Admin: 03/30/17 09:29 Dose: 81 mg Atorvastatin Calcium (Lipitor -) 10 mg PO HS [facility] Last Admin: 03/30/17 21:43 Dose: Not Given Cefuroxime Axetil (Ceftin -) 250 mg PO BID [facility] Stop: 04/02/17 09:59 Last Admin: 03/30/17 21:41 Dose: Not Given Cholecalciferol (Vitamin D3 -) 1,000 unit PO DAILY [facility] Last Admin: 03/30/17 09:29 Dose: 1,000 unit Furosemide (Lasix Injection -) 40 mg IVPUSH BID@0600,1400 [facility] Last Admin: 03/31/17 06:17 Dose: 40 mg Insulin Aspart (Novolog Vial Sliding Scale -) 1 vial SQ TIDAC [facility] PRN Reason: Protocol Last Admin: 03/31/17 06:18 Dose: 4 units Loratadine (Claritin -) 10 mg PO DAILY [facility] Last Admin: 03/30/17 09:31 Dose: 10 mg Metoprolol Succinate (Toprol Xl -) 75 mg PO BID [facility] Last Admin: 03/30/17 21:44 Dose: Not Given Multivitamins/Minerals/Vitamin C (Tab-A-Vit -) 1 tab PO DAILY [facility] Last Admin: 03/30/17 09:31 Dose: 1 tab Ranitidine HCl (Zantac -) 150 mg PO BID [facility] Last Admin: 03/30/17 21:44 Dose: Not Given - Objective Vital Signs: Vital Signs Temperature 96.4 F L 03/31/17 05:46 Pulse Rate 87 03/31/17 07:38 Respiratory Rate 20 03/31/17 05:46 Blood Pressure 131/80 03/31/17 05:46 O2 Sat by Pulse Oximetry (%) 96 03/31/17 07:38 Constitutional: Yes: No Distress, Calm Eyes: No: Sclera Icterus HENT: No: Nasal Congestion Cardiovascular: Yes: Regular Rate and Rhythm, JVD, Murmur (loud HSM apex), S1, S2, Other (PMI non diplaced). No: Gallop Respiratory: Yes: CTA Bilaterally (not taking deep breaths, bipap sounds obscure ). No: Accessory Muscle Use, Rales, Wheezes Gastrointestinal: Yes: Normal Bowel Sounds, Soft. No: Tenderness Musculoskeletal: Yes: Other (No kyphosis) Extremities: No: Cool Edema: Yes (1+ pretib) Integumentary: No: Jaundice Neurological: Yes: Lethargy. No: Seizure Psychiatric: No: Agitated Labs: CBC, BMP 03/31/17 06:37 03/31/17 06:37 INR, PTT INR 1.48 (0.82-1.09) H 03/25/17 22:14 - ....Imaging EKG: Other (tele: NSR) Assessment/Plan EKGs: no ischemic changes echo 03/2017: nl lv size/fn. tds for rwma. rv not well seen. mod mac. mod- sev mr. chest ct: interstitial edema. bilateral, mod-large pleural effusions with compressive atelectasis. calc cors. calc av and mv. mildly dilated PA. 2014 stress: non-ischemic ekg, no sx's. small, mild basal inferolateral ischemia. nl ef. Carotid Doppler 08/2014: no sig stenosis a/p: 86 yo m with h/o HTN, HPL, mod mr, s/p right CEA, ckd, gerd, DM who p/w weakness/respiratory distress acute diastolic chf exacerbation/mod mac/mod-sev mr - may be triggered by progressive valvular disease either functional MS from MAC or MR progression (no mention of flail leaflet on echo). - trop neg x 3. echo with preserved systolic function. no concern for acs at this time. - 03/28 ongoing diuresis, will increase lasix from 40 iv bid to 80 iv bid as still with significant le edema and wts not improving much - 03/29: Increased lethargy today. Bun/cr worsened and ABG this am with respiratory acidosis. Lasix dose increased yesterday afternoon to 80 mg IV bid , will hold pm lasix dose today. trial of bipap. repeat cxr and ekg pending. Ongoing reassessment. May need to decrease lasix dose back to 40 IV bid once ready to resume. - 03/30: lasix 80 mg IV x 1 yesterday morning. Per nursing, received IVF overnight --> bun/cr still worse today. Worsened respiratory acidosis on abg this morning. Pulm notified and bipap setting were adjusted. renal consulted --> resumed lasix 40 IV BID for tomorrow. HR well controlled. - 03/31: wt [address] mason on 02/18/17, was 238 in 05/03. came down from 243 to 241 here--no wt the past 2 days (lethargy). CXR stable vs slightly worse (pulm edema and effusions). suspect L-->R heart chf here. agree with renal recs that HENRY is likely due to decr perfusion from cv decompensation, +/- cardiorenal syndrome. - resumed IVP lasix today (40mg ivp this am--give 80mg ivp tonight), start nitrates for renal vein decongestion. if renal fxn worsens tomorrow, will need trial of milrinone-assisted diuresis - needs high quality echo as outpt once effectively diuresed, to better assess MV pathology (severity, and etiology of MR) acute respiratory failure with hypercapnea - ongoing mgmt with bipap per pulm new afib (conversion to sinus rhythm 03/29): - dx this admit, with rvr -hr improved with toprol, 03/28 ncreased dose to 75 bid for better control --> conversion to SR 03/29. Remains in SR. -chadsvasc warrants AC, started eliquis 2.5 bid (low dose due to age and cr) presumed cad - calc cors with hx of mild inferior ischemia on stress testing. No suspected acs, no ischemic ecg changes - con't medical mgm't with asa, statin. hgb stable htn - controlled on current regimen HENRY on CKD - creat initially slightly worse than baseline-->climbed to 2.5 and plateau'd at this level - likely cardiorenal syndrome - worsening renal function as mentioned above. - holding home acei. - renal following.
--- NOTE | 2017-03-31 09:40 | PN ---
Progress Note, Physician Chief Complaint: pt in bed in no acute distress, lethargic, arousable, opens eyes to verbal command. - Current Medication List Current Medications: Active Medications Acetaminophen (Tylenol -) 650 mg PO Q6H PRN PRN Reason: FEVER Albuterol/Ipratropium (Duoneb -) 1 amp NEB Q4H PRN PRN Reason: SHORTNESS OF BREATH Last Admin: 03/31/17 07:48 Dose: 1 amp Apixaban (Eliquis -) 2.5 mg PO BID [facility] Last Admin: 03/30/17 21:43 Dose: Not Given Aspirin (Asa -) 81 mg PO DAILY [facility] Last Admin: 03/30/17 09:29 Dose: 81 mg Atorvastatin Calcium (Lipitor -) 10 mg PO HS [facility] Last Admin: 03/30/17 21:43 Dose: Not Given Cefuroxime Axetil (Ceftin -) 250 mg PO BID [facility] Stop: 04/02/17 09:59 Last Admin: 03/30/17 21:41 Dose: Not Given Cholecalciferol (Vitamin D3 -) 1,000 unit PO DAILY [facility] Last Admin: 03/30/17 09:29 Dose: 1,000 unit Furosemide (Lasix Injection -) 40 mg IVPUSH BID@0600,1400 [facility] Last Admin: 03/31/17 06:17 Dose: 40 mg Insulin Aspart (Novolog Vial Sliding Scale -) 1 vial SQ TIDAC [facility] PRN Reason: Protocol Last Admin: 03/31/17 06:18 Dose: 4 units Loratadine (Claritin -) 10 mg PO DAILY [facility] Last Admin: 03/30/17 09:31 Dose: 10 mg Metoprolol Succinate (Toprol Xl -) 75 mg PO BID [facility] Last Admin: 03/30/17 21:44 Dose: Not Given Multivitamins/Minerals/Vitamin C (Tab-A-Vit -) 1 tab PO DAILY [facility] Last Admin: 03/30/17 09:31 Dose: 1 tab Ranitidine HCl (Zantac -) 150 mg PO BID [facility] Last Admin: 03/30/17 21:44 Dose: Not Given - Objective Vital Signs: Vital Signs Temperature 96.4 F L 03/31/17 05:46 Pulse Rate 87 03/31/17 07:38 Respiratory Rate 20 03/31/17 05:46 Blood Pressure 131/80 03/31/17 05:46 O2 Sat by Pulse Oximetry (%) 96 03/31/17 07:38 Constitutional: Yes: No Distress, Calm Cardiovascular: Yes: Regular Rate and Rhythm, Murmur, S1, S2. No: Gallop, Rub Respiratory: Yes: CTA Bilaterally (anterior thorax, pt not taking deep breaths) , Diminished, On BiPap Gastrointestinal: Yes: WNL, Normal Bowel Sounds, Soft, Abdomen, Obese. No: Distention, Tenderness Edema: Yes Edema: LLE: Trace, RLE: Trace Neurological: Yes: Lethargy Psychiatric: Yes: Oriented Labs: CBC, BMP 03/31/17 06:37 03/31/17 06:37 INR, PTT INR 1.48 (0.82-1.09) H 03/25/17 22:14 - ....Imaging Chest X-ray: Report Reviewed Problem List - Problems (1) Sepsis Code(s): A41.9 - SEPSIS, UNSPECIFIED ORGANISM (2) CKD (chronic kidney disease) Code(s): N18.9 - CHRONIC KIDNEY DISEASE, UNSPECIFIED Qualifiers: Chronic kidney disease stage: stage 3 (moderate) Qualified Code(s): N18.3 - Chronic kidney disease, stage 3 (moderate) (3) Respiratory acidosis Code(s): E87.2 - ACIDOSIS (4) Osteoarthritis Code(s): M19.90 - UNSPECIFIED OSTEOARTHRITIS, UNSPECIFIED SITE Qualifiers: Osteoarthritis location: multiple joints Osteoarthritis type: primary Qualified Code(s): M15.0 - Primary generalized (osteo)arthritis (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 Code(s): I08.0 - RHEUMATIC DISORDERS OF BOTH MITRAL AND AORTIC VALVES (6) Chest pain Code(s): R07.9 - CHEST PAIN, UNSPECIFIED Qualifiers: Chest pain type: other chest pain Qualified Code(s): R07.89 - Other chest pain (7) Diabetes Code(s): E11.9 - TYPE 2 DIABETES MELLITUS WITHOUT COMPLICATIONS Qualifiers: Diabetes mellitus type: type 2 Diabetes mellitus intermediate school 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 insulin use: without intermediate school teacher use Chronic kidney disease stage: stage 3 (moderate) (8) GERD (gastroesophageal reflux disease) Code(s): K21.9 - GASTRO-ESOPHAGEAL REFLUX DISEASE WITHOUT ESOPHAGITIS (9) HLD (hyperlipidemia) Code(s): E78.5 - HYPERLIPIDEMIA, UNSPECIFIED (10) HTN (hypertension) Code(s): I10 - ESSENTIAL (PRIMARY) HYPERTENSION Qualifiers: Hypertension type: essential hypertension Qualified Code(s): I10 - Essential (primary) hypertension (11) Vitamin D deficiency Code(s): E55.9 - VITAMIN D DEFICIENCY, UNSPECIFIED (12) Neuropathy Code(s): G62.9 - POLYNEUROPATHY, UNSPECIFIED (13) Lower extremity edema Code(s): R60.0 - LOCALIZED EDEMA (14) Acute exacerbation of congestive heart failure Code(s): I50.9 - HEART FAILURE, UNSPECIFIED (15) New onset a-fib Code(s): I48.91 - UNSPECIFIED ATRIAL FIBRILLATION (16) Hyperkalemia Code(s): E87.5 - HYPERKALEMIA (17) CAD (coronary artery disease) Code(s): I25.10 - ATHSCL HEART DISEASE OF [place] CORONARY ARTERY W/O ANG PCTRS (18) Acute respiratory failure with hypoxia and hypercapnia Code(s): J96.01 - ACUTE RESPIRATORY FAILURE WITH HYPOXIA; J96.02 - ACUTE RESPIRATORY FAILURE WITH HYPERCAPNIA Assessment/Plan (1) Acute exacerbation of congestive heart failure Assessment/Plan: chest xray w/ worsening congestion, improved le edema continue lasix per cardiology daily weights, standing low na diet cardiology/pulm/nephr following Code(s): I50.9 - HEART FAILURE, UNSPECIFIED Qualifiers: Congestive heart failure type: diastolic Qualified Code(s): I50.33 - Acute on chronic diastolic (congestive) heart failure (2) Acute respiratory failure with hypoxia and hypercapnia Assessment/Plan: lethargic today, arousable, on bipap abg with improved resp acidosis pulm following Code(s): J96.01 - ACUTE RESPIRATORY FAILURE WITH HYPOXIA; J96.02 - ACUTE RESPIRATORY FAILURE WITH HYPERCAPNIA (3) Lower extremity edema Assessment/Plan: acute on chronic, improved lasix Code(s): R60.0 - LOCALIZED EDEMA (4) New onset a-fib Assessment/Plan: converted back to SR, coagulated on eliquis 2.5mg bid toprol 75mg bid cardiology following Code(s): I48.91 - UNSPECIFIED ATRIAL FIBRILLATION (5) Hyperkalemia Assessment/Plan: mild, worsening secondary to diuresis will monitor Code(s): E87.5 - HYPERKALEMIA (6)Sepsis Assessment/Plan: afebrile, improved resp acidemia UA/UC/blood cultures neg chest xray with b/l pleural effusions completed tamiflu po ceftin ID following Code(s): A41.9 - SEPSIS, UNSPECIFIED ORGANISM (7) CKD (chronic kidney disease) Assessment/Plan: acute on chronic, worsening pt clinically appears better, responded well to lasix, improved le edema monitor renal function tomorrow, if worsens, consider milrinone Urine Na/Creatinine wnl holding quinapril aguilar for strict I+O's nephrology following Code(s): N18.9 - CHRONIC KIDNEY DISEASE, UNSPECIFIED Qualifiers: Chronic kidney disease stage: stage 3 (moderate) Qualified Code(s): N18.3 - Chronic kidney disease, stage 3 (moderate) (8) Respiratory acidosis Assessment/Plan: improved, pt still lethargic but arousable continue bipap pulm following will monitor Code(s): E87.2 - ACIDOSIS (9) Osteoarthritis Assessment/Plan: stable will monitor for now Code(s): M19.90 - UNSPECIFIED OSTEOARTHRITIS, UNSPECIFIED SITE Qualifiers: Osteoarthritis location: multiple joints Osteoarthritis type: primary Qualified Code(s): M15.0 - Primary generalized (osteo)arthritis (10) 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 Assessment/Plan: continue lasix cardiology following Code(s): I08.0 - RHEUMATIC DISORDERS OF BOTH MITRAL AND AORTIC VALVES (11) Chest pain Assessment/Plan: resolved tropsx3 neg continue aspirin cardiology following Code(s): R07.9 - CHEST PAIN, UNSPECIFIED Qualifiers: Chest pain type: other chest pain Qualified Code(s): R07.89 - Other chest pain (12) Diabetes Assessment/Plan: stable hold metformin in the setting of worsening renal function BGM Insulin sliding scale Code(s): E11.9 - TYPE 2 DIABETES MELLITUS WITHOUT COMPLICATIONS Qualifiers: Diabetes mellitus type: type 2 Diabetes mellitus usp insulin use: without usp use Chronic kidney disease stage: stage 3 (moderate) (13) GERD (gastroesophageal reflux disease) Assessment/Plan: stable continue ranitidine Code(s): K21.9 - GASTRO-ESOPHAGEAL REFLUX DISEASE WITHOUT ESOPHAGITIS (14) HLD (hyperlipidemia) Assessment/Plan: stable continue atorvastatin aspirin 81mg Code(s): E78.5 - HYPERLIPIDEMIA, UNSPECIFIED (15) HTN (hypertension) Assessment/Plan: stable holding quinapril in the setting of lyubov Code(s): I10 - ESSENTIAL (PRIMARY) HYPERTENSION Qualifiers: Hypertension type: essential hypertension Qualified Code(s): I10 - Essential (primary) hypertension (16) Vitamin D deficiency Assessment/Plan: stable continue vitamin d tabs Code(s): E55.9 - VITAMIN D DEFICIENCY, UNSPECIFIED (17) Neuropathy Assessment/Plan: stable PT pending will monitor Code(s): G62.9 - POLYNEUROPATHY, UNSPECIFIED
[2017-03-31] MEDS: ASPIRIN 81 MG CHEWABLE TABLETS PO SCH ×2 (09:46→10:00)
[2017-03-31] MEDS: RANITIDINE HCL 150 MG TABLET (FP) PO SCH ×3 (09:46→23:35)
[2017-03-31] MEDS: CEFUROXIME AXETIL 250 MG TABLET PO SCH ×3 (09:46→23:34)
[2017-03-31] MEDS: APIXABAN 2.5 MG TABLET PO SCH ×3 (09:46→23:34)
[2017-03-31] MEDS: LORATADINE 10 MG TABLET PO SCH ×2 (09:46→10:00)
[2017-03-31] MEDS: CHOLECALCIFEROL (VITAMIN D3) 1,000 UNIT TABLET (FP) PO SCH ×2 (09:47→10:00)
[2017-03-31] MEDS: MULTIVITAMINS (DAILY MVI) TABLET (FP) PO SCH ×2 (09:47→10:00)
[2017-03-31 10:09] LABS: ARTERIAL BLD GAS O2 SATURATION 97.9 % (90-98.9); ARTERIAL BLOOD GAS BASE EXCESS 4.1 meq/l (-2-2); ARTERIAL BLOOD GAS PCO2 55.4 mmHg (35-45); ARTERIAL BLOOD GAS pH 7.36 (7.35-7.45)
[2017-03-31 10:25] LABS: ALLENS TEST POSITIVE
--- NOTE | 2017-03-31 12:06 | PN ---
Progress Note, Physician History of Present Illness: pulmonary drowsy on bipap responds to questions. pt still dyspneic - Current Medication List Current Medications: Active Medications Acetaminophen (Tylenol -) 650 mg PO Q6H PRN PRN Reason: FEVER Albuterol/Ipratropium (Duoneb -) 1 amp NEB Q4H PRN PRN Reason: SHORTNESS OF BREATH Last Admin: 03/31/17 07:48 Dose: 1 amp Apixaban (Eliquis -) 2.5 mg PO BID [facility] Last Admin: 03/31/17 09:46 Dose: 2.5 mg Aspirin (Asa -) 81 mg PO DAILY [facility] Last Admin: 03/31/17 09:46 Dose: 81 mg Atorvastatin Calcium (Lipitor -) 10 mg PO HS [facility] Last Admin: 03/30/17 21:43 Dose: Not Given Cefuroxime Axetil (Ceftin -) 250 mg PO BID [facility] Stop: 04/02/17 09:59 Last Admin: 03/31/17 09:46 Dose: 250 mg Cholecalciferol (Vitamin D3 -) 1,000 unit PO DAILY [facility] Last Admin: 03/31/17 09:47 Dose: 1,000 unit Furosemide (Lasix Injection -) 80 mg IVPUSH ONCE ONE Stop: 03/31/17 14:01 Insulin Aspart (Novolog Vial Sliding Scale -) 1 vial SQ TIDAC [facility] PRN Reason: Protocol Last Admin: 03/31/17 11:15 Dose: 4 units Loratadine (Claritin -) 10 mg PO DAILY [facility] Last Admin: 03/31/17 09:46 Dose: 10 mg Metoprolol Succinate (Toprol Xl -) 75 mg PO BID [facility] Last Admin: 03/31/17 09:47 Dose: 75 mg Multivitamins/Minerals/Vitamin C (Tab-A-Vit -) 1 tab PO DAILY [facility] Last Admin: 03/31/17 09:47 Dose: 1 tab Nitroglycerin (Nitro-Bid 2% Paste -) 1 inch TD Q6HPO [facility] Ranitidine HCl (Zantac -) 150 mg PO BID [facility] Last Admin: 03/31/17 09:46 Dose: 150 mg - Objective Vital Signs: Vital Signs Temperature 98.5 F 03/31/17 10:00 Pulse Rate 88 03/31/17 10:00 Respiratory Rate 22 03/31/17 10:00 Blood Pressure 122/71 03/31/17 10:00 O2 Sat by Pulse Oximetry (%) 97 03/31/17 09:00 Constitutional: Yes: Well Nourished, Other (drowsy) Eyes: Yes: WNL HENT: Yes: WNL Neck: Yes: WNL Cardiovascular: Yes: Pulse Irregular, S1, S2 Respiratory: Yes: Rales (delisa rales with scattered rhonchi), Rhonchi Gastrointestinal: Yes: Normal Bowel Sounds, Soft Extremities: Yes: WNL Edema: Yes Labs: CBC, BMP 03/31/17 06:37 03/31/17 06:37 INR, PTT INR 1.48 (0.82-1.09) H 03/25/17 22:14 Laboratory Tests 03/31/17 10:05 ABG pH 7.36 ABG pCO2 at Pt Temp 55.4 H ABG pO2 at Pt Temp 101.0 H ABG HCO3 30.4 H ABG O2 Sat (Measured) 97.9 ABG O2 Content 17.4 - ....Imaging Chest X-ray: Report Reviewed, Image Reviewed (increased pul vascular congestion ) Problem List - Problems (1) Acute hypoxemic respiratory failure Code(s): J96.01 - ACUTE RESPIRATORY FAILURE WITH HYPOXIA (2) Acute respiratory failure with hypoxia and hypercapnia Code(s): J96.01 - ACUTE RESPIRATORY FAILURE WITH HYPOXIA; J96.02 - ACUTE RESPIRATORY FAILURE WITH HYPERCAPNIA (3) Acute exacerbation of congestive heart failure Code(s): I50.9 - HEART FAILURE, UNSPECIFIED (4) Acute on chronic kidney failure Code(s): N17.9 - ACUTE KIDNEY FAILURE, UNSPECIFIED; N18.9 - CHRONIC KIDNEY DISEASE, UNSPECIFIED (5) DVT prophylaxis Code(s): [id number] - (6) Lower extremity edema Code(s): R60.0 - LOCALIZED EDEMA (7) 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 Code(s): I08.0 - RHEUMATIC DISORDERS OF BOTH MITRAL AND AORTIC VALVES (8) Pneumonia Code(s): J18.9 - PNEUMONIA, UNSPECIFIED ORGANISM (9) Chest pain Code(s): R07.9 - CHEST PAIN, UNSPECIFIED Qualifiers: Chest pain type: other chest pain Qualified Code(s): R07.89 - Other chest pain (10) Diabetes Code(s): E11.9 - TYPE 2 DIABETES MELLITUS WITHOUT COMPLICATIONS Qualifiers: Diabetes mellitus type: type 2 Diabetes mellitus usp insulin use: without terminal press operator use Chronic kidney disease stage: stage 3 (moderate) (11) HTN (hypertension) Code(s): I10 - ESSENTIAL (PRIMARY) HYPERTENSION Qualifiers: Hypertension type: essential hypertension Qualified Code(s): I10 - Essential (primary) hypertension Assessment/Plan IMP ACUTE HYPOXEMIC/HYPERCAPNEIC RESPIRATORY FAILURE CHF PNEUMONIA HTN DM ACUTE ON CKD worsening AFIB PLAN IV LASIX BIPAP INHALED BRONCHODILATORS F/U ABGs F/U CHEST X-RAYS MONITOR LYTES,RENAL FUNCTION DR PIERSON Problem List - Problems (1) Acute hypoxemic respiratory failure Code(s): J96.01 - ACUTE RESPIRATORY FAILURE WITH HYPOXIA (2) Acute respiratory failure with hypoxia and hypercapnia Code(s): J96.01 - ACUTE RESPIRATORY FAILURE WITH HYPOXIA; J96.02 - ACUTE RESPIRATORY FAILURE WITH HYPERCAPNIA (3) Acute exacerbation of congestive heart failure Code(s): I50.9 - HEART FAILURE, UNSPECIFIED (4) Acute on chronic kidney failure Code(s): N17.9 - ACUTE KIDNEY FAILURE, UNSPECIFIED; N18.9 - CHRONIC KIDNEY DISEASE, UNSPECIFIED (5) DVT prophylaxis Code(s): [id number] - (6) Lower extremity edema Code(s): R60.0 - LOCALIZED EDEMA (7) 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 Code(s): I08.0 - RHEUMATIC DISORDERS OF BOTH MITRAL AND AORTIC VALVES (8) Pneumonia Code(s): J18.9 - PNEUMONIA, UNSPECIFIED ORGANISM (9) Chest pain Code(s): R07.9 - CHEST PAIN, UNSPECIFIED Qualifiers: Chest pain type: other chest pain Qualified Code(s): R07.89 - Other chest pain (10) Diabetes Code(s): E11.9 - TYPE 2 DIABETES MELLITUS WITHOUT COMPLICATIONS Qualifiers: Diabetes mellitus type: type 2 Diabetes mellitus usp insulin use: without usp use Chronic kidney disease stage: stage 3 (moderate) (11) HTN (hypertension) Code(s): I10 - ESSENTIAL (PRIMARY) HYPERTENSION Qualifiers: Hypertension type: essential hypertension Qualified Code(s): I10 - Essential (primary) hypertension
[2017-03-31] MEDS ORDERED: PT OWN MED DRAWER 7, Y5N ONE (14:10)
[2017-03-31] MEDS ORDERED: METOPROLOL TARTRATE 5 MG/5 ML VIAL IVPUSH ONE ×2 (14:15→16:45)
[2017-03-31] MEDS ORDERED: FUROSEMIDE 40 MG/4 ML INJECTABLE VIAL IVPUSH ONE (14:15)
[2017-03-31] MEDS: NITROGLYCERIN 2% OINTMENT - 1GM PACKET TD SCH ×2 (14:28→18:42)
--- NOTE | 2017-03-31 16:38 | PN ---
Progress Note (short form) - Note Progress Note: Renal follow up for HENRY and volume overload Pt seen and examined at the bedside on BIPAP, awake and alert no acute complaints denies any CP, Abd pain, overt SOB Vital Signs Temperature 98.2 F 03/31/17 14:05 Pulse Rate 108 H 03/31/17 14:05 Respiratory Rate 22 03/31/17 14:05 Blood Pressure 121/65 03/31/17 14:05 O2 Sat by Pulse Oximetry (%) 97 03/31/17 09:00 Intake & Output 03/28/17 03/29/17 03/30/17 03/31/17 23:59 23:59 23:59 23:59 Intake Total 900 452 25 270 Output Total 500 0 250 Balance 400 452 25 20 Weight 110.393 kg 109.486 kg NAD awake and alet tachycardic soft NT/ND + sacral edema, 1+ LE edema no bladder distension CBC, BMP 03/31/17 06:37 03/31/17 06:37 Current Medications Acetaminophen (Tylenol -) 650 mg PO Q6H PRN PRN Reason: FEVER Albuterol/Ipratropium (Duoneb -) 1 amp NEB Q4H PRN PRN Reason: SHORTNESS OF BREATH Last Admin: 03/31/17 07:48 Dose: 1 amp Apixaban (Eliquis -) 2.5 mg PO BID [facility] Last Admin: 03/31/17 10:00 Dose: Not Given Aspirin (Asa -) 81 mg PO DAILY [facility] Last Admin: 03/31/17 10:00 Dose: Not Given Atorvastatin Calcium (Lipitor -) 10 mg PO [facility] Last Admin: 03/30/17 21:43 Dose: Not Given Cefuroxime Axetil (Ceftin -) 250 mg PO BID [facility] Stop: 04/02/17 09:59 Last Admin: 03/31/17 10:00 Dose: Not Given Cholecalciferol (Vitamin D3 -) 1,000 unit PO DAILY [facility] Last Admin: 03/31/17 10:00 Dose: Not Given Insulin Aspart (Novolog Vial Sliding Scale -) 1 vial SQ TIDAC [facility] PRN Reason: Protocol Last Admin: 03/31/17 16:29 Dose: 8 units Loratadine (Claritin -) 10 mg PO DAILY [facility] Last Admin: 03/31/17 10:00 Dose: Not Given Metoprolol Succinate (Toprol Xl -) 75 mg PO BID [facility] Last Admin: 03/31/17 14:00 Dose: 75 mg Multivitamins/Minerals/Vitamin C (Tab-A-Vit -) 1 tab PO DAILY [facility] Last Admin: 03/31/17 10:00 Dose: Not Given Nitroglycerin (Nitro-Bid 2% Paste -) 1 inch TD Q6HPO [facility] Last Admin: 03/31/17 14:28 Dose: 1 inch Ranitidine HCl (Zantac -) 150 mg PO BID [facility] Last Admin: 03/31/17 10:00 Dose: Not Given 86 yo with h/o HTN, HPL, Mitral regurgitatyion, Anemia, CKD3,GERD, DM who p/w weakness/respiratory distress with HENRY with volume overload #Acute Kidney Injury with volume overload Differential includes Cardio-renal syndrome vs. intravascular volume depletion vs. urinary retention pt with evidence of peripheral edema and pulmonary congestion on CXR and thus warrants continue diuresis may need iontropic support per cardiology will defer addition of thiazide type diuretic until pt has trial on high dose loop no ASHLEY/ARB at this time will place Adams to access response to diuretics trend BUN/Cr no acute indication for SPECIMEN TRANSPORTER keep MAP> 65 Thank you Will follow Larry Brand DO
[2017-03-31] MEDS: ATORVASTATIN CA 10 MG TABLET (FP) PO SCH (23:34)
[2017-04-01] MEDS: NITROGLYCERIN 2% OINTMENT - 1GM PACKET TD SCH ×2 (00:52→07:49)
[2017-04-01 07:11] LABS: ANION GAP 3 (8-16); CALCIUM 8.5 mg/dL (8.5-10.1); CHLORIDE 110 mmol/L (98-107); CO2 36 mmol/L (21-32); CREATININE 2.5 mg/dL (0.7-1.3); GLUCOSE,RANDOM 289 mg/dL (74-106); MAGNESIUM 2.7 mg/dL (1.8-2.4); PHOSPHOROUS 5.1 mg/dL (2.5-4.9); POTASSIUM 4.6 mmol/L (3.5-5.1); SODIUM 149 mmol/L (136-145)
[2017-04-01 07:14] LABS: BLOOD UREA NITROGEN 122 mg/dL (7-18)
[2017-04-01 07:16] LABS: BASO % 0.3 % (0-2.0); EOS % 0.3 % (0-4.5); HEMOGLOBIN 12.9 GM/dL (11.7-16.9); LYMPH % 9.8 % (8-40); MCH 31.3 pg (25.7-33.7); MCHC 32.3 g/dl (32.0-35.9); MEAN PLT VOLUME 9.5 fl (7.5-11.1); MONO % 9.4 % (3.8-10.2); NEUT % 80.2 % (42.8-82.8); PLATELET COUNT 192 K/MM3 (134-434); RBC 4.12 M/mm3 (4.00-5.60); RDW 13.3 % (11.9-15.9); WHITE BLOOD COUNT 10.1 K/mm3 (4.0-10.0)
[2017-04-01 07:46] LABS: ARTERIAL BLD GAS O2 SATURATION 98.8 % (90-98.9); ARTERIAL BLOOD GAS BASE EXCESS 4.4 meq/l (-2-2); ARTERIAL BLOOD GAS PCO2 61.8 mmHg (35-45); ARTERIAL BLOOD GAS pH 7.33 (7.35-7.45)
[2017-04-01] MEDS: INSULIN SLIDING SCALE (NOVOLOG) 1 VIAL SQ SCH ×2 (07:49→16:43)
[2017-04-01 07:53] LABS: ALLENS TEST POSITIVE
[2017-04-01] MEDS ORDERED: METOPROLOL TARTRATE 5 MG/5 ML VIAL IVPUSH ONE ×2 (11:00→11:15)
--- NOTE | 2017-04-01 11:28 | PN ---
Addendum entered and electronically signed by Wisam Brar MD 04/01/17 15:43 : Patient seen and examined. Case d/w Dr Romero and Dr Berman, transfer to ICU and place on amiodarone gtt. Code status d/w , patient is DNR but unclear if also DNI. Requested all medical decisions be made by daughter who is home with the flu. Multiple calls placed, no answer currently. Case d/w Noelle Canchola RENAL DIALYSIS TECHNICIAN, agree with exam and plan as written. Original Note: Progress Note, Physician Chief Complaint: pt in bed, lethargic, tachypneic didn't respond to verbal stimuli. - Current Medication List Current Medications: Active Medications Acetaminophen (Tylenol -) 650 mg PO Q6H PRN PRN Reason: FEVER Albuterol/Ipratropium (Duoneb -) 1 amp NEB Q4H PRN PRN Reason: SHORTNESS OF BREATH Last Admin: 03/31/17 07:48 Dose: 1 amp Apixaban (Eliquis -) 2.5 mg PO BID [facility] Last Admin: 03/31/17 23:34 Dose: Not Given Aspirin (Asa -) 81 mg PO DAILY [facility] Last Admin: 03/31/17 10:00 Dose: Not Given Atorvastatin Calcium (Lipitor -) 10 mg PO HS [facility] Last Admin: 03/31/17 23:34 Dose: Not Given Cefuroxime Axetil (Ceftin -) 250 mg PO BID [facility] Stop: 04/02/17 09:59 Last Admin: 03/31/17 23:34 Dose: Not Given Insulin Aspart (Novolog Vial Sliding Scale -) 1 vial SQ TIDAC [facility] PRN Reason: Protocol Last Admin: 04/01/17 07:49 Dose: Not Given Metoprolol Succinate (Toprol Xl -) 75 mg PO BID [facility] Last Admin: 03/31/17 23:35 Dose: Not Given Nitroglycerin (Nitro-Bid 2% Paste -) 1 inch TD Q6HPO [facility] Last Admin: 04/01/17 07:49 Dose: 1 inch - Objective Vital Signs: Vital Signs Temperature 99.5 F 04/01/17 10:00 Pulse Rate 126 H 04/01/17 11:22 Respiratory Rate 20 04/01/17 10:00 Blood Pressure 110/60 04/01/17 11:22 O2 Sat by Pulse Oximetry (%) 96 04/01/17 10:20 Constitutional: Yes: Mild Distress Cardiovascular: Yes: Tachycardia, Pulse Irregular, Murmur. No: Gallop, Rub Respiratory: Yes: Diminished, On BiPap, Tachypnea. No: Rales, Rhonchi, Wheezes Gastrointestinal: Yes: WNL, Normal Bowel Sounds, Soft, Abdomen, Obese. No: Distention, Tenderness Edema: Yes Edema: LLE: 1+, RLE: 1+ Neurological: Yes: Lethargy Labs: CBC, BMP 04/01/17 05:35 04/01/17 05:35 INR, PTT INR 1.48 (0.82-1.09) H 03/25/17 22:14 Problem List - Problems (1) Sepsis Code(s): A41.9 - SEPSIS, UNSPECIFIED ORGANISM (2) CKD (chronic kidney disease) Code(s): N18.9 - CHRONIC KIDNEY DISEASE, UNSPECIFIED Qualifiers: Chronic kidney disease stage: stage 3 (moderate) Qualified Code(s): N18.3 - Chronic kidney disease, stage 3 (moderate) (3) Respiratory acidosis Code(s): E87.2 - ACIDOSIS (4) Osteoarthritis Code(s): M19.90 - UNSPECIFIED OSTEOARTHRITIS, UNSPECIFIED SITE Qualifiers: Osteoarthritis location: multiple joints Osteoarthritis type: primary Qualified Code(s): M15.0 - Primary generalized (osteo)arthritis (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 Code(s): I08.0 - RHEUMATIC DISORDERS OF BOTH MITRAL AND AORTIC VALVES (6) Chest pain Code(s): R07.9 - CHEST PAIN, UNSPECIFIED Qualifiers: Chest pain type: other chest pain Qualified Code(s): R07.89 - Other chest pain (7) Diabetes Code(s): E11.9 - TYPE 2 DIABETES MELLITUS WITHOUT COMPLICATIONS Qualifiers: Diabetes mellitus type: type 2 Diabetes mellitus termination clerk insulin use: without termination clerk use Chronic kidney disease stage: stage 3 (moderate) (8) GERD (gastroesophageal reflux disease) Code(s): K21.9 - GASTRO-ESOPHAGEAL REFLUX DISEASE WITHOUT ESOPHAGITIS (9) HLD (hyperlipidemia) Code(s): E78.5 - HYPERLIPIDEMIA, UNSPECIFIED (10) HTN (hypertension) Code(s): I10 - ESSENTIAL (PRIMARY) HYPERTENSION Qualifiers: Hypertension type: essential hypertension Qualified Code(s): I10 - Essential (primary) hypertension (11) Vitamin D deficiency Code(s): E55.9 - VITAMIN D DEFICIENCY, UNSPECIFIED (12) Neuropathy Code(s): G62.9 - POLYNEUROPATHY, UNSPECIFIED (13) Lower extremity edema Code(s): R60.0 - LOCALIZED EDEMA (14) Acute exacerbation of congestive heart failure Code(s): I50.9 - HEART FAILURE, UNSPECIFIED (15) New onset a-fib Code(s): I48.91 - UNSPECIFIED ATRIAL FIBRILLATION (16) Hyperkalemia Code(s): E87.5 - HYPERKALEMIA (17) CAD (coronary artery disease) Code(s): I25.10 - ATHSCL HEART DISEASE OF [place] CORONARY ARTERY W/O ANG PCTRS (18) Acute respiratory failure with hypoxia and hypercapnia Code(s): J96.01 - ACUTE RESPIRATORY FAILURE WITH HYPOXIA; J96.02 - ACUTE RESPIRATORY FAILURE WITH HYPERCAPNIA (19) Acute metabolic encephalopathy Code(s): G93.41 - METABOLIC ENCEPHALOPATHY (20) Prerenal azotemia Code(s): R79.89 - OTHER SPECIFIED ABNORMAL FINDINGS OF BLOOD CHEMISTRY (21) Low TSH level Code(s): R94.6 - ABNORMAL RESULTS OF THYROID FUNCTION STUDIES Assessment/Plan (1) Acute exacerbation of congestive heart failure Assessment/Plan: worsening pulm congestion despite diuresis diuresis per cardiology daily weights, standing low na diet cardiology/pulm/nephr following Code(s): I50.9 - HEART FAILURE, UNSPECIFIED Qualifiers: Congestive heart failure type: diastolic Qualified Code(s): I50.33 - Acute on chronic diastolic (congestive) heart failure (2) Acute respiratory failure with hypoxia and hypercapnia Assessment/Plan: increased lethargy today, , on bipap abg increased hypercapnia continue bipap pulm following transfer to ICU for further management Code(s): J96.01 - ACUTE RESPIRATORY FAILURE WITH HYPOXIA; J96.02 - ACUTE RESPIRATORY FAILURE WITH HYPERCAPNIA (3) Lower extremity edema Assessment/Plan: acute on chronic, improved diuresis per cardiology Code(s): R60.0 - LOCALIZED EDEMA (4) New onset a-fib Assessment/Plan: in afib with rvr, hr 110s-120s, pt lethargic, unable to take po lopressor 5mg ivp ordered discussed with cardiology, will start amio drip Code(s): I48.91 - UNSPECIFIED ATRIAL FIBRILLATION (5) Hyperkalemia Assessment/Plan: mild, worsening will monitor Code(s): E87.5 - HYPERKALEMIA (6)Sepsis Assessment/Plan: afebrile, UA/UC/blood cultures neg completed tamiflu po ceftin per ID Code(s): A41.9 - SEPSIS, UNSPECIFIED ORGANISM (7) CKD (chronic kidney disease) Assessment/Plan: acute on chronic, worsening renal function pt more lethargic today 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 LEADER not indicated per Nephr Urine Na/Creatinine wnl holding quinapril aguilar for strict I+O's nephrology following Code(s): N18.9 - CHRONIC KIDNEY DISEASE, UNSPECIFIED Qualifiers: Chronic kidney disease stage: stage 3 (moderate) Qualified Code(s): N18.3 - Chronic kidney disease, stage 3 (moderate) (8) Respiratory acidosis Assessment/Plan: more lethargic today continue bipap pulm following will monitor Code(s): E87.2 - ACIDOSIS (9) Osteoarthritis Assessment/Plan: stable will monitor for now Code(s): M19.90 - UNSPECIFIED OSTEOARTHRITIS, UNSPECIFIED SITE Qualifiers: Osteoarthritis location: multiple joints Osteoarthritis type: primary Qualified Code(s): M15.0 - Primary generalized (osteo)arthritis (10) 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 Assessment/Plan: diuresis per cardiology cardiology following Code(s): I08.0 - RHEUMATIC DISORDERS OF BOTH MITRAL AND AORTIC VALVES (11) Chest pain Assessment/Plan: resolved tropsx3 neg continue aspirin cardiology following Code(s): R07.9 - CHEST PAIN, UNSPECIFIED Qualifiers: Chest pain type: other chest pain Qualified Code(s): R07.89 - Other chest pain (12) Diabetes Assessment/Plan: stable hold metformin in the setting of worsening renal function BGM Insulin sliding scale Code(s): E11.9 - TYPE 2 DIABETES MELLITUS WITHOUT COMPLICATIONS Qualifiers: Diabetes mellitus type: type 2 Diabetes mellitus nursing home insulin use: without nursing home use Chronic kidney disease stage: stage 3 (moderate) (13) GERD (gastroesophageal reflux disease) Assessment/Plan: stable hold ranitidine in the setting increased lethargy Code(s): K21.9 - GASTRO-ESOPHAGEAL REFLUX DISEASE WITHOUT ESOPHAGITIS (14) HLD (hyperlipidemia) Assessment/Plan: stable hold atorvastatin in the setting of increased lethargy aspirin 81mg Code(s): E78.5 - HYPERLIPIDEMIA, UNSPECIFIED (15) HTN (hypertension) Assessment/Plan: stable holding quinapril in the setting of lyubov Code(s): I10 - ESSENTIAL (PRIMARY) HYPERTENSION Qualifiers: Hypertension type: essential hypertension Qualified Code(s): I10 - Essential (primary) hypertension (16) Vitamin D deficiency Assessment/Plan: stable hold vit d tabs Code(s): E55.9 - VITAMIN D DEFICIENCY, UNSPECIFIED (17) Neuropathy Assessment/Plan: stable PT when pt less lethargic will monitor Code(s): G62.9 - POLYNEUROPATHY, UNSPECIFIED (18) Acute metabolic encephalopathy Assessment/Plan: secondary to worsening renal function, resp acidemia continue bipap treat underlying condition and monitor for improvement Code(s): G93.41 - METABOLIC ENCEPHALOPATHY (19) Prerenal azotemia Assessment/Plan: worsening renal function nephrology following Code(s): R79.89 - OTHER SPECIFIED ABNORMAL FINDINGS OF BLOOD CHEMISTRY (20) Low TSH level Assessment/Plan: tsh low t3,t4,thyroglubin level ordered endocrine consulted Code(s): R94.6 - ABNORMAL RESULTS OF THYROID FUNCTION STUDIES Discussed with Yusra regarding pt's condition and she expresses she would her daughter to make healthcare decision on pt's behalf. Pt is DNR from outpt paperwork. Pt transferred to ICU, appears ICU discussed with daughter and regarding plan of care and their wishes. Pt made DNR/DNI. Will monitor
--- NOTE | 2017-04-01 11:39 | PN ---
Progress Note (short form) - Note Progress Note: Chief Complaint: resp distress History of Present Illness: Morning lopressor dose delayed until afternoon due to lethargy yesterday. --> Went to afib/flutter with RVR in the afternoon requiring IV lopressor. Toprol dose still being held. Patient now unresponsive on bipap. Worsened HENRY, still making urine. worsened edema despite lasix. no cigs Current Medications Acetaminophen (Tylenol -) 650 mg PO Q6H PRN PRN Reason: FEVER Albuterol/Ipratropium (Duoneb -) 1 amp NEB Q4H PRN PRN Reason: SHORTNESS OF BREATH Last Admin: 03/31/17 07:48 Dose: 1 amp Apixaban (Eliquis -) 2.5 mg PO BID [facility] Last Admin: 03/31/17 23:34 Dose: Not Given Aspirin (Asa -) 81 mg PO DAILY [facility] Last Admin: 03/31/17 10:00 Dose: Not Given Atorvastatin Calcium (Lipitor -) 10 mg PO HS [facility] Last Admin: 03/31/17 23:34 Dose: Not Given Cefuroxime Axetil (Ceftin -) 250 mg PO BID [facility] Stop: 04/02/17 09:59 Last Admin: 03/31/17 23:34 Dose: Not Given Insulin Aspart (Novolog Vial Sliding Scale -) 1 vial SQ TIDAC [facility] PRN Reason: Protocol Last Admin: 04/01/17 07:49 Dose: Not Given Metoprolol Succinate (Toprol Xl -) 75 mg PO BID [facility] Last Admin: 03/31/17 23:35 Dose: Not Given Metoprolol Tartrate (Lopressor Injection -) 10 mg IVPUSH ONCE ONE Stop: 04/01/17 11:01 Nitroglycerin (Nitro-Bid 2% Paste -) 1 inch TD Q6HPO [facility] Last Admin: 04/01/17 07:49 Dose: 1 inch - Objective Vital Signs: Vital Signs - 24 hr 03/31/17 03/31/17 03/31/17 14:00 14:05 16:46 Temperature 98.2 F Pulse Rate 124 H 108 H 122 H Respiratory 22 Rate Blood Pressure 130/68 121/65 133/83 O2 Sat by Pulse Oximetry (%) 03/31/17 03/31/17 03/31/17 18:04 21:00 22:00 Temperature 98.9 F Pulse Rate 117 H Respiratory 20 20 Rate Blood Pressure 104/55 O2 Sat by Pulse 100 100 Oximetry (%) 03/31/17 03/31/17 04/01/17 22:05 23:39 00:30 Temperature 98.1 F Pulse Rate 119 H Respiratory 20 Rate Blood Pressure 130/64 O2 Sat by Pulse 100 100 Oximetry (%) 04/01/17 04/01/17 04/01/17 02:00 03:42 06:00 Temperature 98.8 F 99.6 F Pulse Rate 87 126 H Respiratory 20 20 Rate Blood Pressure 122/75 111/65 O2 Sat by Pulse 98 Oximetry (%) 04/01/17 10:20 Temperature Pulse Rate Respiratory Rate Blood Pressure O2 Sat by Pulse 96 Oximetry (%) Intake & Output 03/30/17 03/31/17 04/01/17 04/02/17 07:59 07:59 07:59 07:59 Intake Total 322 45 250 Output Total 0 1550 Balance 322 45 -1300 JVD elevated, neck supple bibasilar dullness/rales, nl effort. bipap on. rrr nl s1, s2 2/6 murmur at sternal border and at apex. + bs soft nt nd, obese. no hsm trace-1+ LE edema lethargic, but arousable . no carotid bruit no jaundice, diaphoresis diminshed dp/pt Labs: CBC, BMP 04/01/17 05:35 04/01/17 05:35 - ....Imaging EKG: Other (tele: rvr) Assessment/Plan EKGs: no ischemic changes echo 03/2017: nl lv size/fn. tds for rwma. rv not well seen. mod mac. mod- sev mr. chest ct: interstitial edema. bilateral, mod-large pleural effusions with compressive atelectasis. calc cors. calc av and mv. mildly dilated PA. 2014 stress: non-ischemic ekg, no sx's. small, mild basal inferolateral ischemia. nl ef. Carotid Doppler 08/2014: no sig stenosis a/p: 86 yo m with h/o HTN, HPL, mod mr, s/p right CEA, ckd, gerd, DM who p/w weakness/respiratory distress 04/01: acute respiratory failure with hypercapnea, worsening diastolic/valvular HF exacerbation, recurrence of RVR, worsening HENRY, worsening MS. - Echocardiogram images personally reviewed by me today, + moderate MS (MG 5), difficult to assess for flail and severity of MR due to shadowing from MAC but MR does not appear severe. AK of the lateral RV wall and apex, basal RV fn is preserved. LV with nl function (almost hyperdynamic) and cavity small in comparison to RV. IVC dilated. Underlying problem is likely RV failure. I suspect it will not be possible to unload the RV until the heart rate is controlled . Patient does not tolerate RVR. Since lethargy affecting PO intake and RVR partially triggered by missed po toprol doses will need to find IV alternative. Since patient has RV failure will stop BB/defer ccb and start amiodarone drip. NOTE had abnormal tsh on admit. Please obtain TFT's now and consider endo consult regarding safety of amio. Can give trial of IV digoxin x 1, if needed to control heart rate and augment RV contractility, but use with caution in setting of renal failure. - Total body volume overloaded, but suspect that diuresis will not be successful unless HR controlled and LV is given more time to fill and draw forward flow from RV. BUN 122 now, may end up needing NAVAL SCIENCE TEACHER. Discussed with renal, no urgent indication for NAVAL SCIENCE TEACHER at this time. Recommend lasix to allow for slow diuresis and promote mobilization of extravascular fluid. Discussed with renal, Defer milrinone for now as it will worsen HR control. - ongoing mgmt with bipap per pulm. stop nitrates - transfer to ICU Rest of plan as per prior notes: acute diastolic chf exacerbation/mod mac/mod-sev mr - may be triggered by progressive valvular disease either functional MS from MAC or MR progression (no mention of flail leaflet on echo). - trop neg x 3. echo with preserved systolic function. no concern for acs at this time. - 03/28 ongoing diuresis, will increase lasix from 40 iv bid to 80 iv bid as still with significant le edema and wts not improving much - 03/29: Increased lethargy today. Bun/cr worsened and ABG this am with respiratory acidosis. Lasix dose increased yesterday afternoon to 80 mg IV bid , will hold pm lasix dose today. trial of bipap. repeat cxr and ekg pending. Ongoing reassessment. May need to decrease lasix dose back to 40 IV bid once ready to resume. - 03/30: lasix 80 mg IV x 1 yesterday morning. Per nursing, received IVF overnight --> bun/cr still worse today. Worsened respiratory acidosis on abg this morning. Pulm notified and bipap setting were adjusted. renal consulted --> resumed lasix 40 IV BID for tomorrow. HR well controlled. - 03/31: wt [address] mason on 02/18/17, was 238 in 05/03. came down from 243 to 241 here--no wt the past 2 days (lethargy). CXR stable vs slightly worse (pulm edema and effusions). suspect L-->R heart chf here. agree with renal recs that HENRY is likely due to decr perfusion from cv decompensation, +/- cardiorenal syndrome. resumed IVP lasix (40mg ivp this am--give 80mg ivp tonight), start nitrates for renal vein decongestion. if renal fxn worsens tomorrow, will need trial of milrinone-assisted diuresis. - needs high quality echo as outpt once effectively diuresed, to better assess MV pathology (severity, and etiology of MR new afib (conversion to sinus rhythm 03/29): - dx this admit, with rvr -hr improved with toprol, 03/28 ncreased dose to 75 bid for better control --> conversion to SR 03/29. Remains in SR. -chadsvasc warrants AC, started eliquis 2.5 bid (low dose due to age and cr) presumed cad - calc cors with hx of mild inferior ischemia on stress testing. No suspected acs, no ischemic ecg changes - con't medical mgm't with asa, statin. hgb stable htn - monitor on current regimen HENRY on CKD - creat initially slightly worse than baseline-->climbed to 2.5 and plateau'd at this level - likely cardiorenal syndrome - worsening renal function as mentioned above. - holding home acei. - renal following.
[2017-04-01] MEDS ORDERED: AMIODARONE HCL 150 MG/3 ML VIAL IVPUSH ONE (11:45)
--- NOTE | 2017-04-01 12:19 | PN ---
Progress Note, Physician History of Present Illness: PULMONARY LETHARGIC ON BIPAP,TACHYPNEIC - Current Medication List Current Medications: Active Medications Acetaminophen (Tylenol -) 650 mg PO Q6H PRN PRN Reason: FEVER Albuterol/Ipratropium (Duoneb -) 1 amp NEB Q4H PRN PRN Reason: SHORTNESS OF BREATH Last Admin: 03/31/17 07:48 Dose: 1 amp Apixaban (Eliquis -) 2.5 mg PO BID [facility] Last Admin: 03/31/17 23:34 Dose: Not Given Aspirin (Asa -) 81 mg PO DAILY [facility] Last Admin: 03/31/17 10:00 Dose: Not Given Atorvastatin Calcium (Lipitor -) 10 mg PO HS [facility] Last Admin: 03/31/17 23:34 Dose: Not Given Cefuroxime Axetil (Ceftin -) 250 mg PO BID [facility] Stop: 04/02/17 09:59 Last Admin: 03/31/17 23:34 Dose: Not Given Amiodarone HCl/Dextrose (Nexterone 360 Mg/200 Ml Bag) 360 mg in 200 mls @ 16.667 mls/hr IVPB TITR [facility]; 0.5 MG/MIN PRN Reason: Protocol Insulin Aspart (Novolog Vial Sliding Scale -) 1 vial SQ TIDAC [facility] PRN Reason: Protocol Last Admin: 04/01/17 07:49 Dose: Not Given Metoprolol Succinate (Toprol Xl -) 75 mg PO BID [facility] Last Admin: 03/31/17 23:35 Dose: Not Given Nitroglycerin (Nitro-Bid 2% Paste -) 1 inch TD Q6HPO [facility] Last Admin: 04/01/17 07:49 Dose: 1 inch - Objective Vital Signs: Vital Signs Temperature 99.5 F 04/01/17 10:00 Pulse Rate 126 H 04/01/17 11:22 Respiratory Rate 20 04/01/17 10:00 Blood Pressure 110/60 04/01/17 11:22 O2 Sat by Pulse Oximetry (%) 96 04/01/17 10:20 Constitutional: Yes: Well Nourished, Other (LETHARGIC) Eyes: Yes: WNL HENT: Yes: WNL Neck: Yes: WNL Cardiovascular: Yes: Pulse Irregular, S1, S2 Respiratory: Yes: Rhonchi (FEW SCATTERED ABIGAIL RHONCHI) Gastrointestinal: Yes: Normal Bowel Sounds, Soft Extremities: Yes: WNL Edema: Yes Labs: CBC, BMP 04/01/17 05:35 04/01/17 05:35 INR, PTT INR 1.48 (0.82-1.09) H 03/25/17 22:14 Laboratory Tests 04/01/17 06:25 ABG pH 7.33 L ABG pCO2 at Pt Temp 61.8 H* ABG pO2 at Pt Temp 123.0 H D ABG HCO3 31.5 H ABG O2 Sat (Measured) 98.8 Oxygen Flow Rate 35% Vent Rate 20 Pressure Support Vent Bipap 01/09 Problem List - Problems (1) Acute hypoxemic respiratory failure Code(s): J96.01 - ACUTE RESPIRATORY FAILURE WITH HYPOXIA (2) Acute respiratory failure with hypoxia and hypercapnia Code(s): J96.01 - ACUTE RESPIRATORY FAILURE WITH HYPOXIA; J96.02 - ACUTE RESPIRATORY FAILURE WITH HYPERCAPNIA (3) Acute exacerbation of congestive heart failure Code(s): I50.9 - HEART FAILURE, UNSPECIFIED (4) Acute on chronic kidney failure Code(s): N17.9 - ACUTE KIDNEY FAILURE, UNSPECIFIED; N18.9 - CHRONIC KIDNEY DISEASE, UNSPECIFIED (5) DVT prophylaxis Code(s): [id number] - (6) Lower extremity edema Code(s): R60.0 - LOCALIZED EDEMA (7) 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 Code(s): I08.0 - RHEUMATIC DISORDERS OF BOTH MITRAL AND AORTIC VALVES (8) Pneumonia Code(s): J18.9 - PNEUMONIA, UNSPECIFIED ORGANISM (9) Chest pain Code(s): R07.9 - CHEST PAIN, UNSPECIFIED Qualifiers: Qualified Code(s): R07.89 - Other chest pain; R07.8 - Other chest pain (10) Diabetes Code(s): E11.9 - TYPE 2 DIABETES MELLITUS WITHOUT COMPLICATIONS Qualifiers: Qualified Code(s): E11.22 - Type 2 diabetes mellitus with diabetic chronic kidney disease; N18.3 - Chronic kidney disease, stage 3 (moderate); N18.3 - Chronic kidney disease, stage 3 (moderate) (11) HTN (hypertension) Code(s): I10 - ESSENTIAL (PRIMARY) HYPERTENSION Qualifiers: Qualified Code(s): I10 - Essential (primary) hypertension Assessment/Plan IMP ACUTE HYPOXEMIC/HYPERCAPNEIC RESPIRATORY FAILURE CHF PNEUMONIA HTN DM ACUTE ON CKD worsening AFIB PLAN TRANSFER TO ICU IV LASIX BIPAP INHALED BRONCHODILATORS F/U ABGs F/U CHEST X-RAYS MONITOR LYTES,RENAL FUNCTION DR PIERSON Problem List - Problems (1) Acute hypoxemic respiratory failure Code(s): J96.01 - ACUTE RESPIRATORY FAILURE WITH HYPOXIA (2) Acute respiratory failure with hypoxia and hypercapnia Code(s): J96.01 - ACUTE RESPIRATORY FAILURE WITH HYPOXIA; J96.02 - ACUTE RESPIRATORY FAILURE WITH HYPERCAPNIA (3) Acute exacerbation of congestive heart failure Code(s): I50.9 - HEART FAILURE, UNSPECIFIED (4) Acute on chronic kidney failure Code(s): N17.9 - ACUTE KIDNEY FAILURE, UNSPECIFIED; N18.9 - CHRONIC KIDNEY DISEASE, UNSPECIFIED (5) DVT prophylaxis Code(s): [id number] - (6) Lower extremity edema Code(s): R60.0 - LOCALIZED EDEMA (7) 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 Code(s): I08.0 - RHEUMATIC DISORDERS OF BOTH MITRAL AND AORTIC VALVES (8) Pneumonia Code(s): J18.9 - PNEUMONIA, UNSPECIFIED ORGANISM (9) Chest pain Code(s): R07.9 - CHEST PAIN, UNSPECIFIED Qualifiers: Chest pain type: other chest pain Qualified Code(s): R07.89 - Other chest pain (10) Diabetes Code(s): E11.9 - TYPE 2 DIABETES MELLITUS WITHOUT COMPLICATIONS Qualifiers: Diabetes mellitus type: type 2 Diabetes mellitus termite renewal inspector insulin use: without termite renewal inspector use Chronic kidney disease stage: stage 3 (moderate) (11) HTN (hypertension) Code(s): I10 - ESSENTIAL (PRIMARY) HYPERTENSION Qualifiers: Hypertension type: essential hypertension Qualified Code(s): I10 - Essential (primary) hypertension
[2017-04-01] MEDS ORDERED: AMIODARONE IN DEXTROSE,ISO-OSM 360 MG/200 ML BAG IVPB SCH ×2 (12:30→16:15)
[2017-04-01] MEDS: ASPIRIN 81 MG CHEWABLE TABLETS PO SCH (12:59)
[2017-04-01] MEDS: APIXABAN 2.5 MG TABLET PO SCH (13:00)
[2017-04-01] MEDS: CEFUROXIME AXETIL 250 MG TABLET PO SCH (13:00)
--- NOTE | 2017-04-01 14:58 | PN ---
Progress Note (short form) - Note Progress Note: Renal follow up for HENRY and volume overload Pt seen and examined at the bedside on BIPAP, more lethargic today making urine via aguilar no overnight events on BIPAP Vital Signs Temperature 98.6 F 04/01/17 14:24 Pulse Rate 108 H 04/01/17 14:24 Respiratory Rate 27 H 04/01/17 14:24 Blood Pressure 127/70 04/01/17 14:24 O2 Sat by Pulse Oximetry (%) 96 04/01/17 10:20 Intake & Output 03/29/17 03/30/17 03/31/17 04/01/17 23:59 23:59 23:59 23:59 Intake Total 452 25 270 0 Output Total 0 1250 550 Balance 452 25 -980 -550 Weight 109.486 kg NAD awake and alet tachycardic Dec BS at lung bases soft NT/ND + sacral edema, 1+ LE edema no bladder distension CBC, BMP 04/01/17 05:35 04/01/17 05:35 Current Medications Acetaminophen (Tylenol -) 650 mg PO Q6H PRN PRN Reason: FEVER Albuterol/Ipratropium (Duoneb -) 1 amp NEB Q4H PRN PRN Reason: SHORTNESS OF BREATH Last Admin: 03/31/17 07:48 Dose: 1 amp Apixaban (Eliquis -) 2.5 mg PO BID [facility] Last Admin: 04/01/17 13:00 Dose: Not Given Aspirin (Asa -) 81 mg PO DAILY [facility] Last Admin: 04/01/17 12:59 Dose: Not Given Atorvastatin Calcium (Lipitor -) 10 mg PO HS [facility] Last Admin: 03/31/17 23:34 Dose: Not Given Cefuroxime Axetil (Ceftin -) 250 mg PO BID [facility] Stop: 04/02/17 09:59 Last Admin: 04/01/17 13:00 Dose: Not Given Chlorhexidine Gluconate (Hibiclens For Decolonization -) 1 applic TP HS [facility] Amiodarone HCl/Dextrose (Nexterone 360 Mg/200 Ml Bag) 360 mg in 200 mls @ 33.333 mls/hr IVPB TITR [facility]; 1 MG/MIN PRN Reason: Protocol Last Admin: 04/01/17 13:27 Dose: 1 mg/min, 33.333 mls/hr Insulin Aspart (Novolog Vial Sliding Scale -) 1 vial SQ TIDAC [facility] PRN Reason: Protocol Last Admin: 04/01/17 07:49 Dose: Not Given Metoprolol Succinate (Toprol Xl -) 75 mg PO BID [facility] Last Admin: 04/01/17 13:00 Dose: Not Given Mupirocin (Bactroban Ointment (For Decolonization) -) 1 applic NS BID [facility] Stop: 04/06/17 21:59 Nitroglycerin (Nitro-Bid 2% Paste -) 1 inch TD Q6HPO [facility] Last Admin: 04/01/17 07:49 Dose: 1 inch 86 yo with h/o HTN, HPL, Mitral regurgitatyion, Anemia, CKD3,GERD, DM who p/w weakness/respiratory distress with HENRY with volume overload #Acute Kidney Injury with volume overload Differential includes Cardio-renal syndrome vs. intravascular volume depletion vs. urinary retention pt is non-oliguric but continues to have volume overload pt to be started on Amiodarone gtt by cardiology for rapid afib hopefully rate control will result in better cardiac output and renal profusion will plan to start Lasix gtt to continue diuresis Trend BUN/Cr and electrolytes no acute indication for HEDIS MANAGER Prognosis remains guarded Larry Brand DO
[2017-04-01] MEDS ORDERED: HEPARIN NA (PORCINE) 5,000 UNITS/ML 1ML VIAL IVPUSH PRN ×2 (15:03)
[2017-04-01] MEDS ORDERED: HEPARIN - 25,000 UNIT in SODIUM CHLORIDE 495 ML IV SCH (15:15)
[2017-04-01] MEDS ORDERED: ALBUTEROL SO4 2.5/IPRATROPIUM 0.5 INH SOL 3 ML VIAL.NEB. NEB PRN (15:52)
--- NOTE | 2017-04-01 15:57 | CONSULT ---
Consultation: ICU RESIDENT NOTE HISTORY OF PRESENT ILLNESS: 86yo M with history of HTN, hyperlipidemia, and diabetes originally presenting to the hospital for SOB and placed on BiPap was sent to the ICU for rapid Afib with RVR now started on Amio gtt and lethargy on BiPap. Currently patient has amiodarone gtt hanging with HR in the 100-110's and is on BiPap with minimal response to sternal rub. Pt's daughter and at bedside and state that earlier this morning he was minimally responsive and only opened his eyes once. Prior to hospitalization pt's baseline was active with only using a cane for ADL's Pt's daughter and report pt being DNR with their paperwork at home and with Dr. Gambino. They also express how he would have wanted to not want to be intubated. PHYSICAL EXAMINATION Vital Signs - 24 hr 03/31/17 03/31/17 03/31/17 16:46 18:04 21:00 Temperature Pulse Rate 122 H Respiratory 20 Rate Blood Pressure 133/83 O2 Sat by Pulse 100 100 Oximetry (%) 03/31/17 03/31/17 03/31/17 22:00 22:05 23:39 Temperature 98.9 F 98.1 F Pulse Rate 117 H 119 H Respiratory 20 20 Rate Blood Pressure 104/55 130/64 O2 Sat by Pulse 100 Oximetry (%) 04/01/17 04/01/17 04/01/17 00:30 02:00 03:42 Temperature 98.8 F Pulse Rate 87 Respiratory 20 Rate Blood Pressure 122/75 O2 Sat by Pulse 100 98 Oximetry (%) 04/01/17 04/01/17 04/01/17 06:00 09:00 10:00 Temperature 99.6 F 99.5 F Pulse Rate 126 H 128 H Respiratory 20 20 20 Rate Blood Pressure 111/65 107/69 O2 Sat by Pulse 96 Oximetry (%) 04/01/17 04/01/17 04/01/17 10:20 11:22 12:30 Temperature Pulse Rate 126 H 136 H Respiratory 24 Rate Blood Pressure 110/60 112/70 O2 Sat by Pulse 96 Oximetry (%) 04/01/17 04/01/17 04/01/17 13:15 13:34 14:24 Temperature 98.6 F Pulse Rate 112 H 120 H 108 H Respiratory 22 22 27 H Rate Blood Pressure 115/76 127/70 O2 Sat by Pulse Oximetry (%) GENERAL: Unresponsive to sternal rub. Pt looks comfortable without any accessory muscle use. On Bipap currently HEENT: EOMI, EDITA, trace JVD noted, trachea midline Lungs: Rhonchous breath sounds bilaterally towards bases. No superimposed rales heard. No accessory muscle use Cardiac: Irregularly irregular tachycardic rhythm. Murmurs not appreciated currently ABDOMEN: Soft, nondistended, hypoactive bowel sounds, EXTREMITIES: 2+ pulses, 2+ pitting edema bilaterally. Cap refill <2sec Laboratory Results - last 24 hr 03/31/17 03/31/17 03/31/17 16:28 21:37 23:38 WBC RBC Hgb Hct MCV MCH MCHC RDW Plt Count MPV Neutrophils % Lymphocytes % Monocytes % Eosinophils % Basophils % Puncture Site ABG pH ABG pCO2 at Pt Temp ABG pO2 at Pt Temp ABG HCO3 ABG O2 Sat (Measured) ABG O2 Content ABG Base Excess Fritz Test O2 Delivery Device Oxygen Flow Rate Vent Mode Vent Rate Mechanical Rate PEEP Pressure Support Vent Sodium Potassium Chloride Carbon Dioxide Anion Gap BUN Creatinine POC Glucometer 330 350 356 Random Glucose Calcium Phosphorus Magnesium Free T4 04/01/17 04/01/17 04/01/17 05:35 05:35 05:54 WBC 10.1 H RBC 4.12 Hgb 12.9 Hct 40.0 MCV 97.0 H MCH 31.3 MCHC 32.3 RDW 13.3 Plt Count 192 MPV 9.5 Neutrophils % 80.2 Lymphocytes % 9.8 Monocytes % 9.4 Eosinophils % 0.3 Basophils % 0.3 Puncture Site ABG pH ABG pCO2 at Pt Temp ABG pO2 at Pt Temp ABG HCO3 ABG O2 Sat (Measured) ABG O2 Content ABG Base Excess Fritz Test O2 Delivery Device Oxygen Flow Rate Vent Mode Vent Rate Mechanical Rate PEEP Pressure Support Vent Sodium 149 H Potassium 4.6 Chloride 110 H Carbon Dioxide 36 H Anion Gap 3 L BUN 122 H* Creatinine 2.5 H POC Glucometer 278 Random Glucose 289 H D Calcium 8.5 Phosphorus 5.1 H D Magnesium 2.7 H Free T4 04/01/17 04/01/17 04/01/17 06:25 12:05 12:56 WBC RBC Hgb Hct MCV MCH MCHC RDW Plt Count MPV Neutrophils % Lymphocytes % Monocytes % Eosinophils % Basophils % Puncture Site Right radial ABG pH 7.33 L ABG pCO2 at Pt Temp 61.8 H* ABG pO2 at Pt Temp 123.0 H D ABG HCO3 31.5 H ABG O2 Sat (Measured) 98.8 ABG O2 Content 17.3 ABG Base Excess 4.4 H Fritz Test Positive O2 Delivery Device Bipap Oxygen Flow Rate 35% Vent Mode S/t Vent Rate 20 Mechanical Rate Yes PEEP 0.0 Pressure Support Vent Bipap 16/7 Sodium Potassium Chloride Carbon Dioxide Anion Gap BUN Creatinine POC Glucometer 277 Random Glucose Calcium Phosphorus Magnesium Free T4 0.98 Active Medications Generic Name Dose Route Start Last Admin Trade Name Freq PRN Reason Stop Dose Admin Albuterol/Ipratropium 1 amp 04/01/17 15:52 Duoneb - NEB Q4H PRN SHORTNESS OF BREATH Chlorhexidine Gluconate 1 applic 04/01/17 22:00 Hibiclens For Decolonization - TP HS [facility] Furosemide 40 mg 04/01/17 15:02 Lasix Injection - IVPUSH 04/01/17 15:03 ONCE ONE Heparin Sodium (Porcine) 1,000 unit 04/01/17 15:03 Heparin - IVPUSH PRN PRN Heparin Heparin Sodium (Porcine) 5,000 unit 04/01/17 15:03 Heparin - IVPUSH PRN PRN Heparin Heparin Sodium (Porcine) 25, 500 mls @ 20 mls/hr 04/01/17 15:15 000 unit/ Sodium Chloride IV TITR [facility] Protocol 1,000 UNIT/HR Furosemide 100 mg/ Sodium 50 mls @ 5 mls/hr 04/01/17 15:15 Chloride IVPB TITR [facility] 10 MG/HR Amiodarone HCl/Dextrose 360 mg in 200 mls @ 33.333 mls/hr 04/01/17 15:52 Nexterone 360 Mg/200 Ml Bag IVPB TITR [facility] Protocol 1 MG/MIN Insulin Aspart 1 vial 04/01/17 16:30 Novolog Vial Sliding Scale - SQ TIDAC [facility] Protocol Mupirocin 1 applic 04/01/17 22:00 Bactroban Ointment (For Decolonization) - NS 04/06/17 21:59 BID [facility] ASSESSMENT/PLAN: 1) Acute hypoxic hypercapneic respiratory failure --SpO2 >90% --Discussed clinical scenario with daughter and at bedside who state pt would not want life resuscitation measures done including any intubations, central lines, and dialysis --DNR/DNI order signed by as surrogate --Will continue medical and supportive measures currently --If pt declines despite medical therapy they would opt for palliative care --ABG stat --Results: --Will decrease FiO2 on BiPap settings --BiPap for now --20/8 settings 2) New onset Atrial fibrillation --Dr. Romero on board --Pt initially loaded with 150mg Amiodarone and placed on gtt maintenance --Heparin gtt for anticoagulation initiated 3) Acute diastolic heart failure --Daily weights --Adams in place; monitor I&O's --Lasix 40mg IVP once followed by lasix gtt --Hopes of adequate rate control improving cardiac output 4) Acute on chronic renal failure --Dr. Brand on board --Cardiorenal syndrome vs. intravascular depletion due to third-space influx --Currently pt has adequate urine output, but remains overloaded --Lasix bolus and gtt as above --Monitor Cr/BUN --Currently pt fluid overloaded 5) DM --BGM ACHS --ISS on board Prognosis: Guarded Dispo: Continue ICU monitoring; if pt declines will discuss with family about initiation of palliative/hospice care CC TIME: 35minutes Case discussed with Dr. Tirso Boyd, DO - IM PGY-1 Visit type - Emergency Visit Emergency Visit: No - New Patient This patient is new to me today: Yes Date on this admission: 04/02/17 - Critical Care Critical Care patient: Yes Total Critical Care Time (in minutes): 35 Critical Care Statement: The care of this patient involved high complexity decision making to prevent further life threatening deterioration of the patient 's condition and/or to evaluate & treat vital organ system(s) failure or risk of failure.
[2017-04-01] MEDS ORDERED: FUROSEMIDE 40 MG/4 ML INJECTABLE VIAL ONE (16:06)
[2017-04-01 16:14] LABS: ARTERIAL BLOOD GAS BASE EXCESS 3.6 meq/l (-2-2); ARTERIAL BLOOD GAS pH 7.33 (7.35-7.45)
[2017-04-01] MEDS ORDERED: FUROSEMIDE INJECTION 100 MG in SODIUM CHLORIDE 40 ML IVPB SCH (16:15)
[2017-04-01] MEDS ORDERED: FUROSEMIDE 40 MG/4 ML INJECTABLE VIAL IVPUSH ONE (16:15)
[2017-04-01 16:17] LABS: ALLENS TEST POSITIVE
[2017-04-01 16:25] LABS: ARTERIAL BLOOD GAS PCO2 60.1 mmHg (35-45)
[2017-04-01 16:28] LABS: ARTERIAL BLD GAS O2 SATURATION 99.6 % (90-98.9)
[2017-04-01] MEDS ORDERED: INSULIN SLIDING SCALE (NOVOLOG) 1 VIAL SQ SCH (16:30)
--- NOTE | 2017-04-01 16:42 | PN ---
Teaching Attending Note Name of Resident: Satya Boyd ATTENDING PHYSICIAN STATEMENT I saw and evaluated the patient. I reviewed the resident's note and discussed the case with the resident. I agree with the resident's findings and plan as documented. SUBJECTIVE: Pt seen and examined in the ICU. Pt transferred down for worsening lethargy, multiorgan dysfunction. Now unresponsive on BiPAP, family at bedside. OBJECTIVE: Last Vital Signs Temp Pulse Resp BP Pulse Ox 98.6 F 108 H 27 H 127/70 96 04/01/17 14:24 04/01/17 14:24 04/01/17 14:24 04/01/17 14:24 04/01/17 10:20 Intake & Output 03/29/17 03/30/17 03/31/17 04/01/17 23:59 23:59 23:59 23:59 Intake Total 452 25 270 0 Output Total 0 1250 550 Balance 452 25 -980 -550 Weight 109.486 kg Gen: lethargic, unresponsive on BiPAP Heart: tachycardic, irregular Lung: scattered rhonchi Abd: soft, nontender Ext: + edema CBC, BMP 04/01/17 05:35 04/01/17 05:35 ABG Results ABG pH 7.33 (7.35-7.45) L 04/01/17 15:55 ABG pCO2 at Pt Temp 60.1 mmHg (35-45) H* 04/01/17 15:55 ABG pO2 at Pt Temp 188.0 mmHg (68-100) H* D 04/01/17 15:55 ABG HCO3 30.5 meq/L (22-26) H 04/01/17 15:55 ABG O2 Sat (Measured) 99.6 % (90-98.9) H* 04/01/17 15:55 ABG O2 Content 17.4 % vol (15-22) 04/01/17 15:55 ABG Base Excess 3.6 meq/l (-2-2) H 04/01/17 15:55 Active Medications Albuterol/Ipratropium (Duoneb -) 1 amp NEB Q4H PRN PRN Reason: SHORTNESS OF BREATH Chlorhexidine Gluconate (Hibiclens For Decolonization -) 1 applic TP HS JADIEL Heparin Sodium (Porcine) (Heparin -) 1,000 unit IVPUSH PRN PRN PRN Reason: Heparin Heparin Sodium (Porcine) (Heparin -) 5,000 unit IVPUSH PRN PRN PRN Reason: Heparin Heparin Sodium (Porcine) 25, (000 unit/ Sodium Chloride) 500 mls @ 20 mls/hr IV TITR JADIEL; 1,000 UNIT/HR PRN Reason: Protocol Furosemide 100 mg/ Sodium (Chloride) 50 mls @ 5 mls/hr IVPB TITR JADIEL PRN Reason: 10 MG/HR Amiodarone HCl/Dextrose (Nexterone 360 Mg/200 Ml Bag) 360 mg in 200 mls @ 33.333 mls/hr IVPB TITR JADIEL; 1 MG/MIN PRN Reason: Protocol Last Admin: 04/01/17 16:15 Dose: 1 mg/min, 33.333 mls/hr Insulin Aspart (Novolog Vial Sliding Scale -) 1 vial SQ TIDAC JADIEL PRN Reason: Protocol Mupirocin (Bactroban Ointment (For Decolonization) -) 1 applic NS BID JADIEL Stop: 04/06/17 21:59 ASSESSMENT AND PLAN: Acute Hypoxic and Hypercapneic Respiratory Failure Acute Diastolic Heart Failure New Atrial Fibrillation Volume Overload Acute on Chronic Renal Failure HTN DM - discussed current condition with and daughter at bedside in regards to pt's worsening multiorgan dysfunction and options of aggressive therapy including intubation, central lines and dialysis - they state that he would not want life sustaining measures if it required living on machines and that he would not even want to be placed on BiPAP - will continue medical and supportive care at this time, if his condition does not improve or if he shows signs of discomfort/suffering, they will opt for palliative/hospice care - lasix gtt - monitor urine output, creatinine - daily weights - rate control with amiodarone gtt - continue anticoagulation - s/p empiric antibiotics, tamiflu - O2 to keep SpO2 >90% - BiPAP for now - ICU monitoring - prognosis guarded critical care time spent in reviewing chart, evaluating patient and formulating plan 35 min
[2017-04-01] MEDS ORDERED: INSULIN (NOVOLOG) ASPART 100 UNITS/ML 10ML VIAL ONE ×2 (17:17→17:46)
--- NOTE | 2017-04-01 18:28 | CONSULT ---
Consult Consult Specialty:: Endocrinology Referred by:: Dr Brar Reason for Consultation:: Abnormal TFT - History of Present Illness Chief Complaint: SOB History of Present Illness: This is an 86yo M with history of HTN, hyperlipidemia, and DM who originally presentied to the hospital for SOB and placed on BiPap was sent to the ICU for rapid Afib with RVR. Pt started on Amiodarone gtt. Pt found to have abnormal TSH 0.26 and referred for evaluation. Pt on BIPAP with minimal response to sternal rub and unable to give history. - History Source History Provided By: Medical Record Limitations to Obtaining History: Unresponsive - Past Medical History Cardio/Vascular: Yes: CHF, HTN, Hyperlipdemia Gastrointestinal: Yes: GERD Renal/: Yes: Renal Inusuff Musculoskeletal: Yes: Other (Herniated Disc, Spinal Stenosis) Endocrine: Yes: Diabetes Mellitus - Past Surgical History Past Surgical History: Yes: Carotid Endarterectomy (right), Joint Replacement ( bilateral knee) - Alcohol/Substance Use Hx Alcohol Use: No History of Substance Use: reports: None - Smoking History Smoking history: Former smoker Have you smoked in the past 12 months: No If you are a former smoker, when did you quit?: 40 YRS AGO - Social History Usual Living Arrangement: With Spouse ADL: Independent History of Recent Travel: No Home Medications - Allergies Allergies/Adverse Reactions: Allergies Allergy/AdvReac Type Severity Reaction Status Date / Time No Known Allergies Allergy Verified 03/25/17 21:40 - Home Medications Home Medications: Ambulatory Orders Atorvastatin Ca [Lipitor] 10 mg PO HS 10/22/13 Cetirizine HCl [Zyrtec -] 10 mg PO DAILY 10/22/13 Cholecalciferol (Vitamin D3) [Vitamin D3 -] 1,000 unit PO DAILY 10/22/13 Diazepam [Valium -] 10 mg PO TID 10/22/13 Metformin HCl [Metformin HCl ER] 1,000 mg PO BID 10/22/13 Multivitamins [Multivit ([facility] Formulary)] 1 tab PO DAILY 10/22/13 Quinapril HCl [Accupril -] 40 mg PO DAILY 10/22/13 Ranitidine HCl 150 mg PO BID 10/22/13 Oxycodone HCl/Acetaminophen [Percocet 5-325 mg Tablet] 1 tab PO BID PRN #20 tablet MDD 10mg 04/23/16 Aspirin 81 mg PO DAILY 03/26/17 Diclofenac Sodium 75 mg PO BID 03/26/17 Family Disease History - Family Disease History Family Disease History: Other: Sister (dementia) Review of Systems Unable to obtain ROS, reason: unresponsive Physical Exam Vital Signs: Vital Signs Temperature 98.0 F 04/01/17 18:00 Pulse Rate 91 H 04/01/17 18:00 Respiratory Rate 27 H 04/01/17 18:00 Blood Pressure 107/73 04/01/17 18:00 O2 Sat by Pulse Oximetry (%) 97 04/01/17 18:20 Constitutional: Yes: Moderate Distress Eyes: Yes: Conjunctiva Clear HENT: Yes: Atraumatic, Normocephalic Neck: Yes: Supple, Trachea Midline Cardiovascular: Yes: Pulse Irregular Respiratory: Yes: Regular, CTA Bilaterally Gastrointestinal: Yes: Normal Bowel Sounds, Soft Extremities: Yes: WNL Edema: No Labs: CBC, BMP 04/01/17 05:35 04/01/17 05:35 Assessment/Plan Abnormal TFT with TSH of 0.26 with nomal FT4 Sick euthyroid vs subclinical hyperthyroidism Repeat TFT with TSI, TPO AFib on Amiodarone Acute Respiratory Failure Acute on Chronic Renal Failure HTN DM On BIPAP IV Amiodarone IV Lasix
[2017-04-01] MEDS ORDERED: WATER IVPB SCH (19:00)
[2017-04-01] MEDS ORDERED: DEXTROSE 5% IVPB SCH (19:00)
[2017-04-01] MEDS ORDERED: AMIODARONE HCL IVPB SCH (19:00)
[2017-04-01] MEDS ORDERED: DIGOXIN 0.5 MG/2 ML AMPUL IVPUSH ONE (20:15)
[2017-04-01] MEDS ORDERED: CHLORHEXIDINE GLUCONATE 4% CLEANSER FOR DECOLONIZATION TP SCH (22:00)
[2017-04-01] MEDS ORDERED: MUPIROCIN 2% TOPICAL OINTMENT FOR DECOLONIZATION NS SCH (22:00)
[2017-04-02] MEDS ORDERED: PT OWN MED DRAWER 7, Y5N ONE (00:06)
[2017-04-02 02:31] VITALS: TEMP 98.2
[2017-04-02 06:31] LABS: BASO % 0.1 % (0-2.0); HEMATOCRIT 37.9 % (35.4-49); LYMPH % 8.7 % (8-40); MCH 31.8 pg (25.7-33.7); MCHC 31.7 g/dl (32.0-35.9); MEAN CELL VOLUME 100.2 fl (80-96); MEAN PLT VOLUME 9.4 fl (7.5-11.1); NEUT % 81.2 % (42.8-82.8); PLATELET COUNT 206 K/MM3 (134-434); RBC 3.78 M/mm3 (4.00-5.60); RDW 14.4 % (11.9-15.9); WHITE BLOOD COUNT 7.4 K/mm3 (4.0-10.0)
[2017-04-02 06:43] VITALS: BP 50/26; PULSE 30
[2017-04-02 06:56] LABS: ANION GAP 1 (8-16); CALCIUM 8.4 mg/dL (8.5-10.1); CHLORIDE 110 mmol/L (98-107); CO2 40 mmol/L (21-32); CREATININE 3.8 mg/dL (0.7-1.3); POTASSIUM 5.6 mmol/L (3.5-5.1); SODIUM 151 mmol/L (136-145)
[2017-04-02 07:04] LABS: PHOSPHOROUS 8.6 mg/dL (2.5-4.9)
--- NOTE | 2017-04-02 07:08 | HOSP ---
Physical Examination Vital Signs: Vital Signs Temperature 98.2 F 04/02/17 02:00 Pulse Rate 30 L 04/02/17 06:00 Respiratory Rate 8 L 04/02/17 06:00 Blood Pressure 50/26 04/02/17 06:00 O2 Sat by Pulse Oximetry (%) 100 04/02/17 00:04 Hospitalist Encounter Assessment: called by RN who reported pt . examined pt. Pt unresponsive to verbal or noxious stimuli. no pupillary response. No heart and lung sounds on auscultation. No ECG activity on monitor.Pt pronounced at 610AM. Family notified by [facility] Rubi. PCP to do certificate.
[2017-04-02 07:21] LABS: GLUCOSE,RANDOM 302 mg/dL (74-106)
[2017-04-02 07:22] LABS: BLOOD UREA NITROGEN 139 mg/dL (7-18)
== END 2017-04-02 07:41 | disposition expired | DRG 871 ==
LOC: JER 21:18 → JERBED 03-26 00:03 → UNDOADMIN 03-26 00:07 → JERBED 03-26 00:07 → J4S 03-26 22:15 → JICU 04-01 15:32
PROVIDERS: ADMIT Internal Medicine; ATTEND Internal Medicine
PROC: 5A09557 Assistance with Respiratory Ventilation, Greater than 96 Consecutive Hours, Continuous Positive Airway Pressure (ICD-10-PCS; principal; 2017-03-26)
DX: A41.9 Sepsis, unspecified organism (principal); I50.33 Acute on chronic diastolic (congestive) heart failure; J96.01 Acute respiratory failure with hypoxia; J18.9 Pneumonia, unspecified organism; J96.02 Acute respiratory failure with hypercapnia; E87.2 Acidosis; I13.0 Hypertensive heart and chronic kidney disease with heart failure and stage 1 through stage 4 chronic kidney disease, or unspecified chronic kidney disease; N17.9 Acute kidney failure, unspecified; J44.1 Chronic obstructive pulmonary disease with (acute) exacerbation; I48.91 Unspecified atrial fibrillation; E78.5 Hyperlipidemia, unspecified; E11.22 Type 2 diabetes mellitus with diabetic chronic kidney disease; E87.70 Fluid overload, unspecified; K21.9 Gastro-esophageal reflux disease without esophagitis; E87.5 Hyperkalemia; G62.9 Polyneuropathy, unspecified; E55.9 Vitamin D deficiency, unspecified; F03.90 Unspecified dementia, unspecified severity, without behavioral disturbance, psychotic disturbance, mood disturbance, and anxiety; N18.3 Chronic kidney disease, stage 3 (moderate); I25.10 Atherosclerotic heart disease of native coronary artery without angina pectoris
CPT/HCPCS: 36415; 36600; 71045-TC-FY; 71250-TC; 80048; 80053; 80061; 81003; 81015; 82550; 82570; 82803; 82962; 83036; 83605; 83721; 83735; 83880; 84100; 84132; 84300; 84436; 84439; 84443; 84445; 84480; 84481; 84484; 85025; 85027; 85610; 85730; 86376; 86800; 87040; 87086; 87804; 87899; 93005; 93010; 93306-TC; 94640; 94660; 97116-GP; 97161-GP; 99285-25; J1644